=== PATIENT | female | born 1965 | race Caucasian/White ===

== ENCOUNTER 2020-07-07 15:28 | Emergency (ER) | payer OTHER, SELFPAY ==
--- NOTE | ~2020-07-07 | XR_ITS ---
EXAMINATION: XR chest 2V EXAM DATE: 07/07/2020 16:22 INDICATION: Left-sided chest pain radiating to left shoulder, symptoms 4 days. TECHNIQUE: Frontal and lateral projections of the chest obtained and reviewed. There is no prior tiffany dy for comparison. FINDINGS: Lungs are moderately hyperinflated. The lungs are clear. There are no pleural effusions. The cardiomediastinal silhouette is within normal limits. There is no pneumothorax suspected. The b ones and soft tissues are unremarkable. IMPRESSION: 1. No acute cardiopulmonary findings. 2. Hyperinflation. Reviewed, dictated and finalized at location A.
[2020-07-07 15:30] VITALS: BP 146/93; PULSE 81; RESP 16; TEMP 36.1; O2SAT 98
--- NOTE | 2020-07-07 15:33 | ECG_ITS ---
Measurements Intervals [place] Rate: 71 P: 74 AR: 153 QRS: 62 QRSD: 81 T: 66 QT: 364 QTc: 395 Interpretive Statements SINUS RHYTHM NORMAL ECG Electronically Signed On 07-08-2020 6:41:08 CDT by Guerrero Dixon D.O.
[2020-07-07 16:01] VITALS: BP 146/93; PULSE 81; RESP 16; TEMP 36.1; O2SAT 98
[2020-07-07 16:16] LABS: Basophils Percent Auto 0.2 % (0.2-1.2); Eosinophils Absolute Auto 0.1 K/mm3 (0-0.3); Eosinophils Percent Auto 2.4 % (0-4.4); Hematocrit 45.1 % (37.0-47.0); Hemoglobin 14.6 g/dL (12.0-15.0); Immature Granulocyte Absolute 0.01 K/mm3 (0.00-0.031); Immature Granulocyte Percent A 0.2 % (0-0.5); Lymphocytes Percent Auto 29.1 % (18.3-44.2); Mean Corpuscular HGB Conc 32.4 g/dl (32-36); Mean Corpuscular Hemoglobin 30.7 pg (26-34); Mean Corpuscular Volume 94.7 fl (80-100); Mean Platelet Volume 10.5 fl (7.4-10.4); Monocytes Absolute Auto 0.4 K/mm3 (0.1-0.6); Monocytes Percent Auto 7.5 % (2.6-8.5); Neutrophils Absolute Auto 3.3 K/mm3 (1.3-6.7); Neutrophils Percent Auto 60.6 % (45.5-73.1); Platelet Count Result 238 k/mm3 (150-375); Red Blood Count 4.76 M/mm3 (4.2-5.4); Red Cell Distribution Width 12.6 % (11.5-14.5); White Blood Count 5.5 K/mm3 (4.5-10.0)
[2020-07-07 16:26] LABS: Anion Gap 9 mmol/L (8-16); Blood Urea Nitrogen 13 mg/dL (7-17); Calcium 9.9 mg/dL (8.4-10.2); Carbon Dioxide 31 mmol/L (22-30); Chloride 103 mmol/L (98-107); Estimated CRCL calculation 54 ml/min; Estimated Glomerular Filt Rate > 60; Glucose 84 mg/dL (65-105); Sodium 143 mmol/L (137-145)
[2020-07-07 16:27] LABS: INR 0.9; Prothrombin Time 12.9 Seconds (11.1-14.7)
[2020-07-07 16:28] LABS: Partial Thromboplastin Time 22.7 SECONDS (22.3-36.8)
[2020-07-07 16:37] LABS: Troponin I < 0.012 ng/mL (0.000-0.034)
--- NOTE | 2020-07-07 16:58 | ED.GENADULT ---
HPI - General Adult General Chief complaint: Unspecified Stated complaint: shoulder/neck pain Time Seen by Provider: 07/07/20 16:14 Source: patient Mode of arrival: ambulatory Limitations: no limitations Related Data Home Medications Medication Instructions Recorded Confirmed aspirin 81 mg PO DAILY 07/07/20 omeprazole 20 mg PO DAILY 07/07/20 rosuvastatin 20 mg PO DAILY 07/07/20 Allergies Allergy/AdvReac Type Severity Reaction Status Date / Time codeine Allergy Nausea and Verified 07/07/20 15:29 Vomiting PMFSH Social History Social History Gender identity (if verbalized by the patient): Female Course Vital Signs Vital signs: Vital Signs Temperature 36.1 C L 07/07/20 15:30 Pulse Rate 81 07/07/20 15:30 Respiratory Rate 16 07/07/20 15:30 Blood Pressure 146/93 H 07/07/20 15:30 Pulse Oximetry 98 07/07/20 15:30 Temperature 36.1 C L 07/07/20 16:01 Pulse Rate 69 07/07/20 17:48 Respiratory Rate 15 07/07/20 17:48 Blood Pressure 139/50 L 07/07/20 17:48 Pulse Oximetry 100 07/07/20 17:48 Medical Decision Making Vital Signs Vital Signs: Vital Signs Temperature 36.1 C L 07/07/20 15:30 Pulse Rate 81 07/07/20 15:30 Respiratory Rate 16 07/07/20 15:30 Blood Pressure 146/93 H 07/07/20 15:30 Pulse Oximetry 98 07/07/20 15:30 Temperature 36.1 C L 07/07/20 16:01 Pulse Rate 69 07/07/20 17:48 Respiratory Rate 15 07/07/20 17:48 Blood Pressure 139/50 L 07/07/20 17:48 Pulse Oximetry 100 07/07/20 17:48 Lab Data Result diagrams: 07/07/20 16:01 07/07/20 16:01 Labs: Lab Results 07/07/20 07/07/20 07/07/20 Range/Units 16:00 16:01 16:01 WBC 5.5 (4.5-10.0) K/mm3 RBC 4.76 (4.2-5.4) M/mm3 Hgb 14.6 (12.0-15.0) g/dL Hct 45.1 (37.0-47.0) % MCV 94.7 (80-100) fl MCH 30.7 (26-34) pg MCHC 32.4 (32-36) g/dl RDW 12.6 (11.5-14.5) % Plt Count 238 (150-375) k/mm3 MPV 10.5 H (7.4-10.4) fl Immature Gran % (Auto) 0.2 (0-0.5) % Neut % (Auto) 60.6 (45.5-73.1) % Lymph % (Auto) 29.1 (18.3-44.2) % Bonner % (Auto) 7.5 (2.6-8.5) % Eos % (Auto) 2.4 (0-4.4) % Baso % (Auto) 0.2 (0.2-1.2) % Lymph # (Auto) 1.60 (0.9-3.2) K/mm3 Bonner # (Auto) 0.4 (0.1-0.6) K/mm3 Eos # (Auto) 0.1 (0-0.3) K/mm3 Baso # (Auto) 0.0 (0.0-0.1) K/mm3 Abs Immat Gran (auto) 0.01 (0.00-0.031) K/mm3 Absolute Neuts (auto) 3.3 (1.3-6.7) K/mm3 Absolute Nucleated RBC 0.0 (0.0-0.012) K/mm3 Nucleated RBC % 0.0 (0.0-0.2) % PT 12.9 (11.1-14.7) Seconds INR 0.9 APTT 22.7 (22.3-36.8) SECONDS Sodium 143 (137-145) mmol/L Potassium 4.0 (3.4-5.0) mmol/L Chloride 103 (98-107) mmol/L Carbon Dioxide 31 H (22-30) mmol/L Anion Gap 9 (8-16) mmol/L BUN 13 (7-17) mg/dL Creatinine 0.80 (0.7-1.0) mg/dL Estim Creat Clear Calc 54 ml/min Estimated GFR > 60 (59 - ) Glucose 84 (65-105) mg/dL Calcium 9.9 (8.4-10.2) mg/dL Troponin I < 0.012 (0.000-0.034) ng/mL Discharge Plan Discharge Clinical Impression: Cervical radiculopathy Patient Disposition: Home, Self-Care Condition: Stable Instructions: Cervical Radiculopathy (ED) Additional Instructions: See your doctor back home for further evaluation if the symptoms continue or worsen Prescriptions: New methocarbamol 750 mg tablet 750 mg PO QID Qty: 30 RF: 0 naproxen 500 mg tablet 500 mg PO BID Qty: 30 RF: 0 No Action omeprazole 20 mg Capsule,Delayed Release(Dr/Ec) 20 mg PO DAILY RF: 0 aspirin 81 mg Tablet 81 mg PO DAILY RF: 0 rosuvastatin 20 mg Tablet 20 mg PO DAILY RF: 0 Follow-up/Referrals: PHYSICIAN NOT ON STAFF,NONSTAFF [Primary Care Provider] -
[2020-07-07 17:48] VITALS: BP 139/50; PULSE 69; RESP 15; O2SAT 100
--- NOTE | 2020-07-07 18:17 | ED.NECK ---
HPI - Neck Pain/Injury General Chief Complaint: Unspecified Stated Complaint: shoulder/neck pain Time Seen by Provider: 07/07/20 16:14 Source: patient and family Mode of arrival: ambulatory Limitations: no limitations History of Present Illness HPI Narrative: 55-year-old female Complains of pain in the left side of her neck and the left posterior shoulder which has been present for 5 or 6 days She does not recall any injury Pain does seem to shoot into the top part of her arm It is aggravated by turning or flexing her head to the left She saw chiropractor and initially did not think she got any relief but actually today is feeling a little bit better so thinks perhaps it may have helped a little bit, and is also taking OTC medications She does not have any numbness or weakness, no gait issues, no bowel or bladder symptoms Also, no sore throat hoarseness or stridor no chest pain, no shortness of breath Related Data Home Medications Medication Instructions Recorded Confirmed aspirin 81 mg PO DAILY 07/07/20 omeprazole 20 mg PO DAILY 07/07/20 rosuvastatin 20 mg PO DAILY 07/07/20 Allergies Allergy/AdvReac Type Severity Reaction Status Date / Time codeine Allergy Nausea and Verified 07/07/20 15:29 Vomiting Review of Systems Review of Systems: All systems reviewed & are unremarkable except as noted in HPI and below Constitutional: Constitutional: Denies headache(s) and Denies weakness ENT: Denies headache(s) and Denies sore throat Cardiovascular: Cardiovascular: Denies chest pain, Reports radiating jaw, neck or arm pain and Denies dyspnea Respiratory: Respiratory: Denies cough and Denies dyspnea Genitourinary: Genitourinary: Denies urinary frequency Musculoskeletal: Musculoskeletal: Reports back pain, Denies deformity, Denies arthralgias, Denies joint swelling and Denies numbness Integumentary/Breasts: Skin/Breast: Denies rash and Denies wounds Neurologic: Denies headache(s), Denies focal weakness and Denies numbness PMF Social History Social History Gender identity (if verbalized by the patient): Female Exam Const: General: cooperative, healthy appearing, no acute distress and alert Nutritional Appearance: thin Orientation/consciousness: patient oriented x3 (alert) HENMT: Head: normal to inspection, normocephalic and atraumatic Ears: external ears normal General nose exam: no epistaxis Eyes: Conjunctivae: conjunctivae normal EOM: EOMs intact bilaterally Neck: Neck: normal visual inspection, no lymphadenopathy, supple and no JVD Other: Radicular pain is elicited with rotation or flexion to the left There is muscle spasm and tenderness and a trigger point in the posterior trapezius on the left No midline C-spine tenderness Resp: Effort & Inspection: normal respiratory effort and not labored Auscultation: clear to auscultation bilaterally and other (BS =) Cardio: Rate: regular rate Rhythm: regular rhythm Heart sounds: no murmurs Skin: General skin exam: normal color and no rashes or lesions noted Neuro: General: patient oriented x3 (alert) and moves all extremities Speech: normal speech Extrem: General: normal to inspection Psych: Affect: normal affect Course Vital Signs Vital signs: Vital Signs Temperature 36.1 C L 07/07/20 15:30 Pulse Rate 81 07/07/20 15:30 Respiratory Rate 16 07/07/20 15:30 Blood Pressure 146/93 H 07/07/20 15:30 Pulse Oximetry 98 07/07/20 15:30 Temperature 36.1 C L 07/07/20 16:01 Pulse Rate 69 07/07/20 17:48 Respiratory Rate 15 07/07/20 17:48 Blood Pressure 139/50 L 07/07/20 17:48 Pulse Oximetry 100 07/07/20 17:48 MDM - Neck Pain/Injury Lab Data Result diagrams: 07/07/20 16:01 07/07/20 16:01 Labs: Lab Results 07/07/20 07/07/20 07/07/20 Range/Units 16:00 16:01 16:01 WBC 5.5 (4.5-10.0) K/mm3 RBC 4.76 (4.2-5.4) M/mm3 Hgb 14.6 (12.0-15.0) g/dL Hct
== END 2020-07-07 17:51 | disposition home or self-care (01) ==
PROVIDERS: Emergency Medicine; Emergency Provider Emergency Medicine
DX: M54.12 Radiculopathy, cervical region (principal)
CPT/HCPCS: 36415; 71046; 80048; 84484; 85025; 85610; 85730; 93005; 99284

== ENCOUNTER 2022-02-27 14:42 | Outpatient (CLI) | payer OTHER, SELFPAY ==
[2022-02-27 19:53] LABS: Add Urine Microscopic? YES; Appearance Urine Clear (Clear); Bilirubin Urine Negative (Negative); Blood Urine 1+ (Negative); Color Urine Yellow (Yellow); Glucose Urine UA Negative (Negative); Ketones Urine Negative (Negative); Leukocyte Esterase Ur 1+ LEU/UL (Negative); Nitrate Urine Negative (Negative); Protein Urine Negative (Negative); Specific Grav Ur <= 1.005 (1.001-1.035); Urobilinogen Urine 0.2 mg/dL (<2.0); pH Urine 5.5 (5.0-9.0)
[2022-02-27 20:05] LABS: RBC Urine 0-2 /hpf (0-2); WBC Urine 16-20 /hpf
== END 2022-02-27 14:43 | disposition home or self-care (01) ==
LOC: ANHBWCLAB 14:43
PROVIDERS: PCP Family Medicine; Visit Provider Family Medicine
DX: R31.9 Hematuria, unspecified (principal)
CPT/HCPCS: 81001; 87077; 87086; 87186

== ENCOUNTER 2022-03-25 10:28 | Outpatient (CLI) | payer OTHER, SELFPAY ==
--- NOTE | ~2022-03-25 | XR_ITS ---
EXAMINATION: XR finger 2nd RT min 2V DATE: 03/25/2022 10:39 INDICATION: Right hand second digit pain. TECHNIQUE: 4 views of right hand second digit were obtained. COMPARISON: None. FINDINGS: Bone alignment is normal. No fracture. There is mild osteoarthritis of second proximal inte rphalangeal joint. IMPRESSION: 1. 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 Reviewed, dictated and finalized at location A. F BUSINESS DEVELOPMENT OFFICER
== END 2022-03-25 10:29 | disposition home or self-care (01) ==
LOC: ANHBWCIMG 10:29
PROVIDERS: PCP Family Medicine; Visit Provider Family Medicine
DX: M19.041 Primary osteoarthritis, right hand (principal)
CPT/HCPCS: 73140

== ENCOUNTER → 2022-09-27 08:31 | Outpatient (CLI) | payer OTHER, SELFPAY ==
--- NOTE | ~2022-09-27 | MM_ITS ---
EXAMINATION: MM screening daniel BI w ethan HISTORY: Screening mammogram, family history of breast cancer in her mother. TECHNIQUE: Craniocaudal and mediolateral oblique 3-D tomosynthesis images were obtained and synthetic 2-D images were generated. CAD analysis was submitted and interpreted. COMPARISON: No prior mammogram is available for comparison at this institution. BREAST PARENCHYMAL COMPOSITION: The breasts are extremely dense, which lowers the sensitivity of mamm ography. FINDINGS: No suspicious mass, calcification, or architectural distortion are identified in either tesha ast to suggest malignancy. IMPRESSION: 1. No mammographic evidence of malignancy. 2. Recommend routine screening mammography in one year. BI-RADS Category 1: Negative Reviewed, dictated and finalized at location A.
== END ==
PROVIDERS: PCP Family Medicine; Visit Provider Advanced Practice Midwife
DX: Z12.31 Encounter for screening mammogram for malignant neoplasm of breast (principal)
CPT/HCPCS: 77063; 77067

== ENCOUNTER 2022-10-28 10:43 | Outpatient (CLI) | payer OTHER, SELFPAY ==
[2022-10-28 19:01] LABS: Hematocrit 41.4 % (37.0-47.0); Hemoglobin 13.2 g/dL (12.0-15.0); Mean Corpuscular HGB Conc 31.9 g/dl (32-36); Mean Corpuscular Hemoglobin 31.1 pg (26-34); Mean Corpuscular Volume 97.6 fl (80-100); Mean Platelet Volume 11.2 fl (7.4-10.4); Platelet Count Result 233 k/mm3 (150-375); Red Blood Count 4.24 M/mm3 (4.2-5.4); Red Cell Distribution Width 12.4 % (11.5-14.5); White Blood Count 5.1 K/mm3 (4.5-10.0)
[2022-10-28 20:04] LABS: Alanine Aminotransferase 46 U/L (6-35); Albumin Level 4.9 g/dL (3.5-5.1); Alkaline Phosphatase 87 U/L (38-126); Anion Gap 6 mmol/L (8-16); Aspartate Amino Transferase 88 U/L (14-36); Bilirubin,Total 0.6 mg/dL (0.2-1.3); Blood Urea Nitrogen 17 mg/dL (7-17); Calcium 9.6 mg/dL (8.4-10.2); Carbon Dioxide 31 mmol/L (22-30); Chloride 102 mmol/L (98-107); Cholesterol 176 mg/dL (0-200); Estimated Glomerular Filt Rate > 60; Glucose 86 mg/dL (65-110); HDL Direct 79 mg/dL; Potassium 4.2 mmol/L (3.4-5.0); Sodium 139 mmol/L (137-145); Triglycerides 99 mg/dL (<150)
[2022-10-28 20:15] LABS: LDL Cholesterol Direct 67 mg/dL
[2022-10-28 21:33] LABS: Hemoglobin A1C 5.3 % (<5.7)
== END 2022-10-28 10:44 | disposition home or self-care (01) ==
PROVIDERS: PCP Nurse Practitioner Adult Health; Visit Provider Nurse Practitioner Adult Health
DX: Z13.9 Encounter for screening, unspecified (principal)
CPT/HCPCS: 36415; 80053; 80061; 83036; 84443; 85027

== ENCOUNTER 2022-11-04 10:45 | Outpatient (CLI) | payer OTHER, SELFPAY ==
[2022-11-04 19:55] LABS: Alanine Aminotransferase 33 U/L (6-35); Albumin Level 4.6 g/dL (3.5-5.1); Alkaline Phosphatase 69 U/L (38-126); Aspartate Amino Transferase 56 U/L (14-36); Bilirubin,Total 0.3 mg/dL (0.2-1.3); Creatine Kinase 106 U/L (30-135)
[2022-11-04 20:57] LABS: Hepatitis C Virus Antibody Negative (Negative)
== END 2022-11-04 10:46 | disposition home or self-care (01) ==
LOC: ANHBWCLAB 10:47
PROVIDERS: PCP Nurse Practitioner Adult Health; Visit Provider Nurse Practitioner Adult Health
DX: R74.8 Abnormal levels of other serum enzymes (principal)
CPT/HCPCS: 36415; 80076; 82550; 86803

== ENCOUNTER → 2022-11-14 07:54 | Outpatient (CLI) | payer OTHER, SELFPAY ==
--- NOTE | ~2022-11-14 | US_ITS ---
Abdominal Sonogram: Real-time sonographic imaging of the abdomen was performed. Clinical History: Right upper quadrant pain Findings: The liver appears normal with no evidence of mass lesion or bile duct dilatation. Main por alex vein demonstrates normal direction of flow. The spleen is normal in size without evidence of foca l lesion. The gallbladder is well distended, without definite gallstone. There are probable tiny gal lbladder wall polyps. The common bile duct measures 5 mm. The visualized pancreas, aorta, and IVC ar e unremarkable. The right kidney measures 9.6 cm in length and the left kidney measures 8.9 cm. The re is no hydronephrosis or renal calculus. Impression: Tiny gallbladder wall polyps. Reviewed, dictated and finalized at location M. Impression: Tiny gallbladder wall polyps.
== END ==
PROVIDERS: PCP Family Medicine; Visit Provider Nurse Practitioner Adult Health
DX: R10.11 Right upper quadrant pain (principal)
CPT/HCPCS: 76700

== ENCOUNTER 2022-12-05 07:25 | Outpatient (CLI) | payer OTHER, SELFPAY ==
--- NOTE | ~2022-12-05 | NM_ITS ---
EXAMINATION: NM hepatobiliary wo pharm DATE: 12/05/2022 10:06 INDICATION: Right upper quadrant abdominal pain. COMPARISON: Ultrasound 11/14/2022 TECHNIQUE: 4.9 mCi Tc-99m mebrofenin (Choletec) was administered intravenously. Scintigraphic images of the abdomen were obtained for one hour. Then, the patient drank 8 oz Ensure, and imaging was cont inued for 60 minutes. FINDINGS: There is normal clearance of radiotracer from the blood pool. There is homogeneous tracer u ptake by the liver. Activity progresses to the bowel and gallbladder. Gallbladder ejection fraction (GBEF) was 52%. Note that with this technique, normal GBEF >= 33%. IMPRESSION: 1. Normal hepatobiliary scintigraphy. Reviewed, dictated and finalized at location A.
== END 2022-12-05 07:26 | disposition home or self-care (01) ==
PROVIDERS: PCP Family Medicine; Visit Provider Surgery
DX: R10.811 Right upper quadrant abdominal tenderness (principal)
CPT/HCPCS: 78226; A9537

== ENCOUNTER 2023-02-11 11:35 | Outpatient (CLI) | payer OTHER, SELFPAY ==
[2023-02-11 20:06] LABS: Alanine Aminotransferase 20 U/L (6-35); Albumin Level 4.2 g/dL (3.5-5.1); Alkaline Phosphatase 64 U/L (38-126); Aspartate Amino Transferase 36 U/L (14-36); Bilirubin,Total 0.3 mg/dL (0.2-1.3)
== END 2023-02-11 11:36 | disposition home or self-care (01) ==
PROVIDERS: PCP Family Medicine; Visit Provider Nurse Practitioner Adult Health
DX: R74.8 Abnormal levels of other serum enzymes (principal)
CPT/HCPCS: 36415; 80076

== ENCOUNTER 2023-04-06 13:26 | Outpatient (CLI) | payer OTHER, SELFPAY ==
[2023-04-06 19:03] LABS: Hematocrit 39.3 % (37.0-47.0); Hemoglobin 12.4 g/dL (12.0-15.0); Mean Corpuscular HGB Conc 31.6 g/dl (32-36); Mean Corpuscular Hemoglobin 31.1 pg (26-34); Mean Corpuscular Volume 98.5 fl (80-100); Mean Platelet Volume 11.8 fl (7.4-10.4); Platelet Count Result 255 k/mm3 (150-375); Red Blood Count 3.99 M/mm3 (4.2-5.4); Red Cell Distribution Width 12.7 % (11.5-14.5); White Blood Count 6.4 K/mm3 (4.5-10.0)
== END 2023-04-06 13:27 | disposition home or self-care (01) ==
LOC: ANHBWCLAB 13:27
PROVIDERS: PCP Nurse Practitioner Adult Health; Visit Provider Nurse Practitioner Adult Health
DX: R53.83 Other fatigue (principal)
CPT/HCPCS: 36415; 85027

== ENCOUNTER 2023-04-16 12:00 | Outpatient (CLI) | payer OTHER, SELFPAY ==
--- NOTE | ~2023-04-16 | XR_ITS ---
Clinical Indication: Cough PA and lateral views of the chest: Comparison: 07/07/2020 Findings: The lungs are clear, without evidence of focal consolidation or pleural effusion. Cardiome diastinal silhouette is within normal limits. Bones and soft tissues are unremarkable. Impression: Normal chest. Reviewed, dictated and finalized at [facility]. OGRAPH PRINTER Impression: Normal chest.
== END 2023-04-16 12:01 | disposition home or self-care (01) ==
LOC: ANHBWCIMG 12:01
PROVIDERS: PCP Nurse Practitioner Adult Health; Visit Provider Nurse Practitioner Adult Health
DX: R05.9 Cough, unspecified (principal)
CPT/HCPCS: 71046

== ENCOUNTER 2023-05-13 08:30 | Outpatient (CLI) | payer OTHER, SELFPAY ==
[2023-05-13 19:10] LABS: Hematocrit 41.6 % (37.0-47.0); Hemoglobin 12.8 g/dL (12.0-15.0); Mean Corpuscular HGB Conc 30.8 g/dl (32-36); Mean Corpuscular Hemoglobin 30.7 pg (26-34); Mean Corpuscular Volume 99.8 fl (80-100); Mean Platelet Volume 11.2 fl (7.4-10.4); Platelet Count Result 257 k/mm3 (150-375); Red Blood Count 4.17 M/mm3 (4.2-5.4); Red Cell Distribution Width 13.2 % (11.5-14.5); White Blood Count 6.5 K/mm3 (4.5-10.0)
[2023-05-13 19:47] LABS: Alanine Aminotransferase 23 U/L (6-35); Albumin Level 4.3 g/dL (3.5-5.1); Alkaline Phosphatase 68 U/L (38-126); Anion Gap 2 mmol/L (8-16); Aspartate Amino Transferase 40 U/L (14-36); Bilirubin,Total 0.3 mg/dL (0.2-1.3); Blood Urea Nitrogen 20 mg/dL (7-17); Calcium 9.9 mg/dL (8.4-10.2); Carbon Dioxide 31 mmol/L (22-30); Chloride 102 mmol/L (98-107); Cholesterol 164 mg/dL (0-200); Estimated Glomerular Filt Rate > 60; Glucose 63 mg/dL (65-110); HDL Direct 71 mg/dL; Potassium 4.9 mmol/L (3.4-5.0); Sodium 135 mmol/L (137-145); Triglycerides 96 mg/dL (<150)
[2023-05-13 19:58] LABS: LDL Cholesterol Direct 78 mg/dL
[2023-05-15 14:31] LABS: Folic Acid 8.5 ng/mL (2.76->20)
== END 2023-05-13 08:31 | disposition home or self-care (01) ==
PROVIDERS: PCP Nurse Practitioner Adult Health; Visit Provider Nurse Practitioner Adult Health
DX: Z13.9 Encounter for screening, unspecified (principal)
CPT/HCPCS: 36415; 80053; 80061; 82607; 82746; 84443; 85027

== ENCOUNTER 2023-07-22 13:15 | Outpatient (RCR) | payer OTHER, SELFPAY ==
--- NOTE | 2023-05-26 15:45 | OPREHPOC ---
Outpatient Therapy Plan of Care This is a Multidisciplinary Plan of Care that may contain components documented by all disciplines (PT, OT, and ST.) PT Problem 1 PT Problem #1 Knowledge Deficit PT Goal 1 Goal 1. Patient will perform independent HEP Target Visit 2 PT Problem 2 PT Problem #2 Impaired Strength PT Goal 1 Goal 1. Improve pelvic floor strength to 4/5 to decrease incontinence 2. Improve pelvic floor endurance to 10 seconds to decrease incontinence Target Visit 5 PT Problem 3 PT Problem #3 Impaired Functional ADLs PT Goal 1 Goal 1. Pt will report no more than 1 instance of incontinence per week 2. Pt will void no more than 8 times a day and 1 at night 3. Pt will be able to go 5 days out of 7 without wearing a pad or liner Target Visit 5
--- NOTE | 2023-05-26 15:45 | PTOPEVAL1 ---
Assessment and note entered by Allyson Goldberg DPT Evaluation Information Assessment Status Evaluation Subjective Information Pt reports a lot of worsening trouble holding her bladder over the last 12 months and is now wearing a pantiliner. Incontinence with walking her dog, coughing, sneezing. Voids more than 10 times a day and 3 times at night. Incontinence daily, 4-5 on average. Small volume when it does leak. Can hold urge 30-45 minutes. Denies pain with urination. BM daily, no pain. Pelvic pain at times which she attributes to dryness from menopause and is now taking a medicine for that. Highest pain 5/10 and lowest 0/10. Pt has been 2 times, 2 vaginal deliveries and had tearing with 1. 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 Has had to change her clothes at times due to leakage. Patient goal: not have to wear a pad, decrease incontinence Return to MD is not schedule. Reported Pain Level Pain Score 0: Self Report Assessment PT Clinical Summary The patient is presenting to skilled therapy with worsening stress incontinence over the last year. She presents with decreased pelvic floor strength and endurance as well as decreased hip and core strength which are contributing to her daily incontinence and pad use. She will highly benefit from therapy to address these impairments in order to reduce incontinence and improve function. Plan of Care Interventions Manual Therapy,Neuro Re-education,Patient/ Caregiver Education,Therapeutic Activities, Therapeutic Exercise PT Services Indicated Yes Treatment Frequency and 1 time a week for 5 visits Duration These treatments will address the objective and functional deficits as defined above. The patient will be advanced safely and appropriately in order for the patient to progress towards his/her prior level of function. Additional exercises will be introduced and as well as a comprehensive home exercise program upon discharge, if needed, ?to ensure carryover of functional gains achieved in the clinic. This treatment plan has been reviewed and agreement upon by the patient.
--- NOTE | 2023-06-24 09:30 | OPREHPOC ---
Outpatient Therapy Plan of Care This is a Multidisciplinary Plan of Care that may contain components documented by all disciplines (PT, OT, and ST.) PT Problem 1 PT Problem #1 Knowledge Deficit PT Goal 1 Goal 1. Patient will perform independent HEP Target Visit 2 Progress Met PT Problem 2 PT Problem #2 Impaired Strength PT Goal 1 Goal 1. Improve pelvic floor strength to 4/5 to decrease incontinence 2. Improve pelvic floor endurance to 10 seconds to decrease incontinence Target Visit 7 Progress Partially Met Comment 1. met 2. improved to 8 PT Problem 3 PT Problem #3 Impaired Functional ADLs PT Goal 1 Goal 1. Pt will report no more than 1 instance of incontinence per week 2. Pt will void no more than 8 times a day and 1 at night 3. Pt will be able to go 5 days out of 7 without wearing a pad or liner Target Visit 7 Progress Partially Met
--- NOTE | 2023-06-24 09:31 | PTOPPROG ---
Assessment and note entered by Allyson Goldberg DPT Evaluation Information Assessment Status Progress Subjective Information Pt feels better since starting therapy and feels stronger. Urinary incontinence 3 times a day on average, worse in morning after drinking more liquids and occurs with coughing/sneezing/lifting. Voids 8 times a day and 1-3 times a night. States she takes a medicine at night where she has to drink a lot of water and it makes her get up more often. Assessment PT Clinical Summary The patient has made good progress in therapy and reports decreased urinary frequency and incontinence. She demonstrates improved pelvic floor strength and endurance as well as improved core and hip strength. Due to her progress but continued daily incontinence, patient will benefit from further therapy to address strength and incontinence in order to restore full function. Plan of Care Interventions Manual Therapy,Neuro Re-education,Patient/ Caregiver Education,Therapeutic Activities, Therapeutic Exercise PT Services Indicated Yes Treatment Frequency and 1 visit every other week x 2 visits Duration These treatments will address the objective and functional deficits as defined above. The patient will be advanced safely and appropriately in order for the patient to progress towards his/her prior level of function. Additional exercises will be introduced and as well as a comprehensive home exercise program upon discharge, if needed, ?to ensure carryover of functional gains achieved in the clinic. This treatment plan has been reviewed and agreement upon by the patient.
--- NOTE | 2023-07-22 13:42 | OPREHPOC ---
Outpatient Therapy Plan of Care This is a Multidisciplinary Plan of Care that may contain components documented by all disciplines (PT, OT, and ST.) PT Problem 1 PT Problem #1 Knowledge Deficit PT Goal 1 Goal 1. Patient will perform independent HEP Target Visit 2 Progress Met PT Problem 2 PT Problem #2 Impaired Strength PT Goal 1 Goal 1. Improve pelvic floor strength to 4/5 to decrease incontinence 2. Improve pelvic floor endurance to 10 seconds to decrease incontinence Target Visit 7 Progress Met PT Problem 3 PT Problem #3 Impaired Functional ADLs PT Goal 1 Goal 1. Pt will report no more than 1 instance of incontinence per week 2. Pt will void no more than 8 times a day and 1 at night 3. Pt will be able to go 5 days out of 7 without wearing a pad or liner Target Visit 7 Progress Partially Met
--- NOTE | 2023-07-22 13:42 | PTOPDC ---
Assessment and note entered by Allyson Goldberg DPT Evaluation Information Assessment Status Discharge Subjective Information Incontinence occurring 3 times a day, usually small volume unless she is lifting something heavy . Urinating 8 times a day and up to 3 times at night. Reported Pain Level Pain Score 0: Self Report Assessment PT Clinical Summary The patient has continued to make progress in therapy and demonstrates improved pelvic floor endurance. She continues to have daily incontinence but reports overall improvements since initial visit and feels confident in continuing HEP independently at this time. She has been educated in multiple modifications and progressions of her HEP and to follow up with MD and/or PT as needed. Plan of Care PT Services Indicated No
== END 2023-07-22 14:55 | disposition home or self-care (01) ==
LOC: ANHGOSHPT 13:15
PROVIDERS: PCP Nurse Practitioner Adult Health; Visit Provider Nurse Practitioner Adult Health
DX: R32 Unspecified urinary incontinence (principal)
CPT/HCPCS: 97112; 97161; 97530

== ENCOUNTER 2023-07-27 11:35 | Outpatient (CLI) | payer OTHER, SELFPAY ==
--- NOTE | ~2023-07-27 | XR_ITS ---
Clinical Indication: Cough PA and lateral views of the chest: Comparison: 04/16/2023 Findings: The lungs are clear, without evidence of focal consolidation or pleural effusion. Cardiome diastinal silhouette is within normal limits. Bones and soft tissues are unremarkable. Impression: Normal chest. Reviewed, dictated and finalized at location . Impression: Normal chest.
== END 2023-07-27 11:36 | disposition home or self-care (01) ==
LOC: ANHBWCIMG 11:36
PROVIDERS: PCP Nurse Practitioner Adult Health; Visit Provider Nurse Practitioner Adult Health
DX: R05.3 Chronic cough (principal)
CPT/HCPCS: 71046

== ENCOUNTER 2023-07-30 10:04 | Outpatient (CLI) | payer OTHER, SELFPAY ==
--- NOTE | ~2023-07-30 | CT_ITS ---
CT Scan of the Chest without Contrast: Clinical Indication: Chronic cough Technique: Contiguous sections were acquired throughout the chest without intravenous contrast. Dose reduction technique was used on this scan by utilizing automated exposure control and iterative recon struction technique. The dose-length product (DLP) was 138.40 mGy-cm. Findings: There is no evidence of any significant mediastinal, hilar or axillary lymphadenopathy. The mediastin al soft tissues appear normal. There is no evidence of pleural or pericardial effusion. The lungs are clear. No pulmonary nodules or infiltrates are noted. Images through the upper abdomen reveal no abnormalities. Impression: No significant abnormalities seen. Reviewed, dictated and finalized at location . Impression: No significant abnormalities seen.
== END 2023-07-30 10:05 | disposition home or self-care (01) ==
PROVIDERS: PCP Nurse Practitioner Adult Health; Visit Provider Nurse Practitioner Adult Health
DX: R05.3 Chronic cough (principal)
CPT/HCPCS: 71250

== ENCOUNTER 2023-08-26 06:50 | Day surgery (SDC) | payer OTHER, SELFPAY ==
[2023-07-29 10:53] VITALS: BMI 20.1
[2023-08-26 08:15] VITALS: BP 125/82; PULSE 66; RESP 17; TEMP 36.6; O2SAT 100
[2023-08-26] MEDS: LACTATED RINGERS 1,000 ML 150 ML IV CONT (08:20)
--- NOTE | 2023-08-26 08:23 | WPDANESEPPF ---
Anes - Initial Pre Proc Eval Procedure: Operation Date: 08/26/23 09:30 Proposed Procedures p Esophagogastroduodenoscopy - Geovanny Calderón MD Date/Time: 08/26/23 08:23 Surgeon: Geovanny Calderón MD Pre Op Diagnosis: History of other Diseases of the Digestive System Patient Data Age: 58 Gender: F Height: 1.63 m Weight: 52.5 kg Last Vital Signs Temp 36.6 C 08/26/23 08:15 Pulse 66 08/26/23 08:15 Resp 17 08/26/23 08:15 BP 125/82 08/26/23 08:15 Pulse Ox 100 08/26/23 08:15 O2 Del Method Room Air 08/26/23 08:15 Allergies Allergy/AdvReac Type Severity Reaction Status Date / Time codeine Allergy Nausea and Verified 08/26/23 08:11 Vomiting Home Medications Medication Instructions Recorded Confirmed Type naproxen 500 mg tablet 500 mg PO BID #30 tabs 07/07/20 08/26/23 Rx ascorbic acid (vitamin C) 250 mg 250 mg PO DAILY 11/21/22 08/26/23 History tablet cholecalciferol (vitamin D3) 10 10 mcg PO DAILY 11/21/22 08/26/23 History mcg (400 unit) capsule zinc gluconate 50 mg tablet 50 mg PO DAILY 11/21/22 08/26/23 History omeprazole 20 mg capsule,delayed 20 mg PO DAILY #90 caps 04/28/23 08/26/23 Rx release rosuvastatin 20 mg tablet 20 mg PO DAILY #90 tabs 04/28/23 08/26/23 Rx tamoxifen 20 mg tablet 20 mg PO DAILY 05/13/23 08/26/23 History montelukast 10 mg tablet 10 mg PO QHS #90 tabs 06/04/23 08/26/23 Rx (Singulair) vitamin B complex 1 tablet PO DAILY 08/17/23 08/26/23 History Patient hx anesthesia problems: none Family hx anesthesia problems: none Results Review: All pre-operative results and documents have been reviewed as part of the pre-operative evaluation. [facility] Past Medical History Medical History Arthritis GERD (gastroesophageal reflux disease) IBS (irritable bowel syndrome) Family History Family History Father Hypertension Heart disease Mother Cancer Grandparent Cancer Cerebrovascular accident Social History Social History Smoking status: Never smoker Alcohol intake: current Alcohol use details: Daily Wine Substance use: never Substance use type: does not use Lack of Transportation: No Lack of Food: Never True Current Housing: I Have Housing Concerned About Future Housing: No Difficulty Paying Gas/Electric Bills: No Difficulty Paying for Meds: No Currently Unemployed: No Education: Trade/Vocational Certificate Difficulty w/ Childcare or Family Care: No Living arrangements: with family Gender identity (if verbalized by the patient): Female Sexual Orientation (if Verbalized by the Patient): Straight or Heterosexual Agree to blood products: Yes Anes - Eval Final PreProcedure Day of Procedure 08/26/23 08:23 Patient weight: normal Heart: regular rate and rhythm Lungs: clear to auscultation Airway: Mallampati scale class 1 Neurological: alert and oriented Last oral intake: >/= 8 hours ASA classification: II Emergent: no Anesthetic plan: proceed Anesthesia type and monitoring: general GIVS and standard monitoring Results Review: All pre-operative results and documents have been reviewed as part of the pre-operative evaluation. Informed Consent: The patient's anesthetic plan and its attendant risks and benefits were discussed with the patient/family/POA. Questions were solicited and answers provided to the satisfaction of the patient/family/POA.
--- NOTE | 2023-08-26 08:45 | PM.HPGS ---
History of Present Illness History of Present Illness Consent: Risks, benefits, and alternatives have been discussed and questions answered. Patient agrees to proceed with procedure. Chief complaint: History of other Diseases of the Digestive System Narrative: Jenna Jenkins is a 58 year old female presents for EGD. Patient complains of large pills catching her throat. She also reports an ongoing cough. In the past was told that she had acid reflux. She gives a history of esophageal web that was dilated in the past. Patient currently maintained on is all 20mg p.o. daily. Patient denies any weight loss or bleeding. She has today for EGD to assess dysphagia. Review of Systems Review of Systems: All systems reviewed & are unremarkable except as noted in HPI and below PMFSH Past Medical History Medical History Arthritis GERD (gastroesophageal reflux disease) IBS (irritable bowel syndrome) Family History Family History Father Hypertension Heart disease Mother Cancer Grandparent Cancer Cerebrovascular accident Social History Social History Smoking status: Never smoker Alcohol intake: current Alcohol use details: Daily Wine Substance use: never Substance use type: does not use Lack of Transportation: No Lack of Food: Never True Current Housing: I Have Housing Concerned About Future Housing: No Difficulty Paying Gas/Electric Bills: No Difficulty Paying for Meds: No Currently Unemployed: No Education: Trade/Vocational Certificate Difficulty w/ Childcare or Family Care: No Living arrangements: with family Gender identity (if verbalized by the patient): Female Sexual Orientation (if Verbalized by the Patient): Straight or Heterosexual Agree to blood products: Yes Meds Home Medications and Allergies Home Medications Medication Instructions Recorded Confirmed Type naproxen 500 mg tablet 500 mg PO BID #30 tabs 07/07/20 08/26/23 Rx ascorbic acid (vitamin C) 250 mg 250 mg PO DAILY 11/21/22 08/26/23 History tablet cholecalciferol (vitamin D3) 10 10 mcg PO DAILY 11/21/22 08/26/23 History mcg (400 unit) capsule zinc gluconate 50 mg tablet 50 mg PO DAILY 11/21/22 08/26/23 History omeprazole 20 mg capsule,delayed 20 mg PO DAILY #90 caps 04/28/23 08/26/23 Rx release rosuvastatin 20 mg tablet 20 mg PO DAILY #90 tabs 04/28/23 08/26/23 Rx tamoxifen 20 mg tablet 20 mg PO DAILY 05/13/23 08/26/23 History montelukast 10 mg tablet 10 mg PO QHS #90 tabs 06/04/23 08/26/23 Rx (Singulair) vitamin B complex 1 tablet PO DAILY 08/17/23 08/26/23 History Allergies Allergy/AdvReac Type Severity Reaction Status Date / Time codeine Allergy Nausea and Verified 08/26/23 08:11 Vomiting Vital Signs Vital Signs - 24 hr 08/26/23 08:15 Temperature 97.9 F Pulse Rate 66 Respiratory Rate 17 Blood Pressure 125/82 Pulse Oximetry 100 Oxygen Delivery Room Air Exam Narrative: Physical exam reveals patient to be alert. Signs stable. HEENT exam is unremarkable. Patient is anicteric. Lungs are clear to auscultation and to percussion. heart is without murmur or extra sounds. Abdomen bowel sounds are present soft nontender with no organomegaly. Assessment and Plan Assessment and plan (1) Dysphagia: Code(s): R13.10 - Dysphagia, unspecified Status: Acute Assessment and Plan: Patient has difficulty swallowing large pills. She gives a history of GE reflux and distal esophageal web in the past. Plan for follow-up EGD at this time. Continued use of omeprazole already prescribed is advised. (2) Cough: Code(s): R05.9 - Cough, unspecified Status: Acute Assessment and Plan: Patient with chronic coughing. She complains of chest congestion. States that previous x-rays hav
[2023-08-26 09:43] VITALS: BP 117/65; PULSE 59; RESP 14; O2SAT 100
[2023-08-26 09:53] VITALS: BP 113/73; PULSE 54; RESP 16; O2SAT 100
[2023-08-26 10:02] VITALS: BP 115/64; PULSE 61; RESP 16; O2SAT 99
--- NOTE | 2023-08-26 10:09 | WPDANESPN ---
Anes - Prog Note Post-Op Date/Time: 08/26/23 10:09 Cardiovascular status: normal Respiratory status: normal Airway patency: baseline Mental status: baseline Post-Op hydration status: normal Vital Signs: Last Vital Signs Temp 36.6 C 08/26/23 08:15 Pulse 61 08/26/23 10:02 Resp 16 08/26/23 10:02 BP 115/64 08/26/23 10:02 Pulse Ox 99 08/26/23 10:02 O2 Del Method Room Air 08/26/23 10:02 Pain Score (VAS): 0/10 I/O: Intake & Output 08/25/23 08/26/23 08/26/23 23:59 07:59 15:59 Intake Total 450 Balance 450 Patient Feedback: Patient satisfied with anesthetic care.
== END 2023-08-26 10:21 | disposition home or self-care (01) ==
PROVIDERS: PCP Family Medicine; Visit Provider Internal Medicine Gastroenterology
PROC: 0DJ08ZZ Inspection of Upper Intestinal Tract, Via Natural or Artificial Opening Endoscopic (ICD-10-PCS; CPT 43235; principal; 2023-08-26 09:30)
DX: R13.19 Other dysphagia (principal)
CPT/HCPCS: 43450

== ENCOUNTER 2023-11-02 10:18 | Outpatient (CLI) | payer OTHER, SELFPAY ==
[2023-11-02 18:52] LABS: Hematocrit 40.7 % (37.0-47.0); Hemoglobin 12.9 g/dL (12.0-15.0); Mean Corpuscular HGB Conc 31.7 g/dl (32-36); Mean Corpuscular Hemoglobin 30.8 pg (26-34); Mean Corpuscular Volume 97.1 fl (80-100); Mean Platelet Volume 10.9 fl (7.4-10.4); Platelet Count Result 260 k/mm3 (150-375); Red Blood Count 4.19 M/mm3 (4.2-5.4); Red Cell Distribution Width 12.8 % (11.5-14.5); White Blood Count 6.5 K/mm3 (4.5-10.0)
[2023-11-02 19:44] LABS: Alanine Aminotransferase 21 U/L (6-35); Albumin Level 4.4 g/dL (3.5-5.1); Alkaline Phosphatase 51 U/L (38-126); Anion Gap 10 mmol/L (4-12); Aspartate Amino Transferase 66 U/L (14-36); Bilirubin,Total 0.3 mg/dL (0.2-1.3); Blood Urea Nitrogen 17 mg/dL (7-17); Carbon Dioxide 28 mmol/L (22-30); Chloride 98 mmol/L (98-107); Cholesterol 141 mg/dL (0-200); Estimated Glomerular Filt Rate > 60; Glucose 86 mg/dL (65-110); HDL Direct 61 mg/dL; Potassium 4.2 mmol/L (3.4-5.0); Sodium 136 mmol/L (137-145); Triglycerides 86 mg/dL (<150)
[2023-11-02 19:54] LABS: LDL Cholesterol Direct 52 mg/dL
[2023-11-02 20:01] LABS: Hemoglobin A1C 5.8 % (<5.7)
[2023-11-02 20:31] LABS: Vitamin D 25 Hydroxy 43.6 ng/mL
== END 2023-11-02 10:19 | disposition home or self-care (01) ==
PROVIDERS: PCP Nurse Practitioner Adult Health; Visit Provider Nurse Practitioner Adult Health
DX: Z13.9 Encounter for screening, unspecified (principal); E55.9 Vitamin D deficiency, unspecified
CPT/HCPCS: 36415; 80053; 80061; 82306; 82607; 83036; 84443; 85027

== ENCOUNTER 2023-11-12 07:09 | Outpatient (CLI) | payer OTHER, SELFPAY ==
--- NOTE | ~2023-11-12 | DEXA_ITS ---
Bone Density Report Name: GAVI PLAZA Age: 58 Sex: Female Ethnicity: White Date of : 1965 Indication: postmenopausal; screening for osteoporosis; parental hip fracture; Referring Provider: FRANK GARCIA Study: Bone densitometry was performed. Exam Date: November 12, 2023 Accession number: [id number] Bone Density: Region BMD T-score Z-score Classification AP Spine(L1-L4) 0.895 -1.4 0.0 Osteopenia Femoral Neck (Left) 0.509 -3.1 -1.8 Osteoporosis Total Hip (Left) 0.671 -2.2 -1.3 Osteopenia Femoral Neck (Right) 0.569 -2.5 -1.3 Osteoporosis Total Hip (Right) 0.732 -1.7 -0.8 Osteopenia Femoral Neck Mean 0.539 -2.8 -1.5 Osteoporosis Total Hip Mean 0.701 -2.0 -1.0 Osteopenia World Health Organization criteria for BMD impression classify patients as: Normal (T-score at or above -1.0), Osteopenia (T-score between -1.0 and -2.5), or Osteoporosis (T-score at or below -2.5). 10-year Fracture Risk: FRAX not reported because: Some T-score for Spine Total or Hip Total or Femoral Neck at or below -2.5 Clinical Information Provided by Patient: Parent has had a hip fracture Has used the following medications: HRT (i.e. estrogen/hormone therapy), Vitamin D Patient maximum height was 64 Menopause Age: 47 No regular weight bearing exercise Drinks caffeinated beverages Onset of menses at age 10 Number of children 2 Impression: The patient has osteoporosis, based on the Left Femoral Neck T-score. The patient has risk factors, including: parental hip fracture. Discussion: INCREASED RISK OF FRACTURE. BONE DENSITY IS UNDESIRABLY LOW AT ONE OR MORE SKELETAL SITES, CONSISTENT WITH POSTMENOPAUSAL OSTEOPOROSIS. This patient's lowest T-score meets the World Health Organization's (WHO) criteria for osteoporosis at one or more sites (T-score -2.5 or below). In untreated patients, the risk of osteoporotic fracture increases approximately two-fold for each 1.0 SD decrease in T-score. Low bone density is not the only risk factor for fracture; also consider factors such as patient's age, frailty or poor health, risk of falling, risk of injury, previous osteoporotic fracture, family history of osteoporosis, cigarette smoking, low body weight, etc. Not everyone with low bone mineral density has osteoporosis; osteomalacia and other metabolic bone disorders should also be considered. Patients who have osteoporosis should be evaluated for specific diseases and conditions (secondary causes) that may cause or contribute to bone loss. The [place] [employer]ocrin[employer] (AACE) and National Osteoporosis Foundation (NOF) recommend pharmacologic intervention for all postmenopausal women whose T-score is in this range. The patient should follow a healthful lifestyle (good nutrition with seble
== END 2023-11-12 07:10 | disposition home or self-care (01) ==
LOC: CHSIMG 07:11
PROVIDERS: PCP Nurse Practitioner Adult Health; Visit Provider Nurse Practitioner Adult Health
DX: Z78.0 Asymptomatic menopausal state (principal); M85.89 Other specified disorders of bone density and structure, multiple sites; M81.0 Age-related osteoporosis without current pathological fracture
CPT/HCPCS: 77080

== ENCOUNTER 2023-12-30 08:13 | Outpatient (CLI) | payer OTHER, SELFPAY ==
--- NOTE | ~2023-12-30 | US_ITS ---
Limited Abdominal Sonogram: Real-time sonographic imaging of the right upper quadrant was performed. Clinical History: Gallbladder polyps COMPARISON: 11/14/2022 Findings: The liver appears normal with no evidence of bile duct dilatation. There is an echogenic, somewhat masslike area in the liver measuring 2.3 x 1.7 x 2.5 cm. Main portal vein demonstrates ulises l direction of flow. The gallbladder is well distended, and appears demonstrates small polyps measure up to 3 mm. The common bile duct measures 5 mm. The visualized pancreas, aorta, and IVC are unremar kable. Impression: Tiny gallbladder wall polyps up to 3 mm. Echogenic area in the liver measuring 2.3 x 1 7 x 2.5 cm. This could reflect an area of focal fatty i nfiltration versus possibly mass, which would most likely hemangioma. Consider pre and postcontrast M R to further evaluate. Reviewed, dictated and finalized at location M. RAFT ENGINE TECHNICIAN Impression: Tiny gallbladder wall polyps up to 3 mm. Echogenic area in the liver measuring 2.3 x 1 7 x 2.5 cm. This could reflect an area of focal fatty infiltration versus possibly mass, which would most likely hemangioma. Consider pre and postcontrast MR to further evaluate.
== END 2023-12-30 08:14 | disposition home or self-care (01) ==
LOC: GOSHIMG 08:14
PROVIDERS: PCP Nurse Practitioner Adult Health; Visit Provider Surgery
DX: K82.4 Cholesterolosis of gallbladder (principal)
CPT/HCPCS: 76705

== ENCOUNTER 2024-01-05 09:52 | Outpatient (CLI) | payer OTHER, SELFPAY ==
--- NOTE | ~2024-01-05 | MR_ITS ---
EXAMINATION: MR abdomen wo/w con DATE: 01/05/2024 10:42 INDICATION: Abdominal pain with indeterminate hepatic lesion identified on recent gallbladder ultraso und. TECHNIQUE: Magnetic resonance imaging (MRI) of the abdomen was performed without and with 10 mL Multi waldemar intravenous contrast. Sequences included coronal T2-weighted SS-FSE, coronal and axial FS 2D-F IESTA, axial STIR FSE, axial T2-weighted SS-FSE, axial T2-weighted FS SS-FSE, axial diffusion-weighte d SE, axial dual-echo T1-weighted FSPGR, and axial and coronal T1-weighted LAVA. Postcontrast axial T 1-weighted LAVA images were obtained in a time course. Postcontrast coronal T1-weighted LAVA images w ere obtained. COMPARISON: Ultrasound dated 12/30/2023 FINDINGS: Arch size is normal. No pericardial or pleural effusion. There is a very subtle region of focal hepat ic steatosis along the gallbladder fossa with minimal increased signal in the in phase and minimally decreased signal on the post phase images which corresponds in and approximate size and location to t he region of subtly increased echogenicity on prior ultrasound. No other hepatic lesions identified. Gallbladder, spleen, pancreas, bilateral adrenal glands and right kidney are normal. 5 mm T2 hyperint ense nonenhancing cyst at the upper pole of the left kidney. Visualized bowels are unremarkable. No p athologically enlarged abdominal or upper pelvic lymphadenopathy. Normal bone marrow signal throughou t. IMPRESSION: 1. Small region of subtle focal hepatic steatosis along the gallbladder fossa which corresponds to th e lesion of concern on prior ultrasound. Reviewed, dictated and finalized at location B. WELL SERVICES SUPERVISOR IMPRESSION: 1. Small region of subtle focal hepatic steatosis along the gallbladder fossa w hich corresponds to the lesion of concern on prior ultrasound.
== END 2024-01-05 09:53 | disposition home or self-care (01) ==
PROVIDERS: PCP Nurse Practitioner Adult Health; Visit Provider Surgery
DX: R16.0 Hepatomegaly, not elsewhere classified (principal)
CPT/HCPCS: 74183; A9577

== ENCOUNTER 2024-03-17 15:14 | Outpatient (CLI) | payer OTHER, SELFPAY ==
[2024-03-17 18:21] LABS: Basophils Percent Auto 0.2 % (0.2-1.2); Eosinophils Absolute Auto 0.1 K/mm3 (0-0.3); Eosinophils Percent Auto 1.7 % (0-4.4); Hematocrit 38.7 % (37.0-47.0); Hemoglobin 12.4 g/dL (12.0-15.0); Immature Granulocyte Absolute 0.01 K/mm3 (0.00-0.031); Immature Granulocyte Percent A 0.2 % (0-0.5); Lymphocytes Absolute Auto 1.41 K/mm3 (0.9-3.2); Lymphocytes Percent Auto 23.8 % (18.3-44.2); Mean Corpuscular Hemoglobin 31.1 pg (26-34); Mean Platelet Volume 11.7 fl (7.4-10.4); Monocytes Absolute Auto 0.5 K/mm3 (0.1-0.6); Monocytes Percent Auto 7.8 % (2.6-8.5); Neutrophils Absolute Auto 3.9 K/mm3 (1.3-6.7); Neutrophils Percent Auto 66.3 % (45.5-73.1); Platelet Count Result 203 k/mm3 (150-375); Red Blood Count 3.99 M/mm3 (4.2-5.4); Red Cell Distribution Width 13.2 % (11.5-14.5); White Blood Count 5.9 K/mm3 (4.5-10.0)
--- OUTSIDE RECORDS SUMMARY | 2024-03-18 05:56 | XMS_ITS | Data Portability ---
Author Organization [facility] [place] Address [address] [place] [address] Care Team Providers Care Pen Maker Name Role Phone ALYSSASEVERIANOIN Primary Care Provider Assessment Encounter Date Assessment Date Assessment LastModified by Organization Details LastModified Time 07/18/2022 07/18/2022 Annual gynecological exam performed. Patient will come back in a year unless there are new symptoms. Suggest Calcium with Vitamin D if not eating in diet. Patient advised to get annual flu shot. Recommend yearly physicals and preform monthly breast exams. Genetic testing is available for patients with family history of cancer. Engage in safe sexual practices, use condoms. Encouraged to have daily exercise. Avoid tobacco and illicit drugs, moderation of alcohol. If BMI greater than 25 dietary consult advised. If you have any questions please call or email. Not available 07/18/2022 13:00:44 09/25/2023 09/25/2023 Annual gynecological exam performed. Patient will come back in a year unless there are new symptoms. Suggested Calcium with Vitamin D 1200-1500mg daily. Patient advised to get an annual flu shot in the fall and she could obtain at [facility] or [facility]. Also to obtain TDap vaccination if you have not had one in the last 10 years. Recommend yearly mammograms. Encouraged monthly self breast exams. Encourage safe sexual practices, to use condoms and limit partners if not already in a monogamous relationship. Engage in daily exercise of low impact aerobic exercise 45-60 minutes 4-5 times weekly. Avoid tobacco and illicit drugs as well as using moderation with alcohol intake less than 1-2 8 oz beverages daily. This lifestyle behavior pattern will lead to less health conditions and longer life span. If BMI greater than 25 weight watchers or dietary consult advised. All questions have been answered. Patient appears to understand information, but if you have any questions please call or respond to this email. pap collected mammogram MRI at [facility] samples of ashley [email or web address] Not available 09/25/2023 11:38:56 Plan of Treatment Reminders Order Date Submit Date Provider Last Modified By Organization Details Last Modified Time Details Appointments [facility] 2024 10:00A M Yuliana Rod CNM Not available Not available Not available Lab None recorded. Referral None recorded. Procedures None recorded. Surgeries None recorded. Imaging None recorded. Medication Orders nystatin- triamcino lone 100,000 unit/gram -0.1 % topical ointment 2022 023 Not available 07/18/2022 12:35:32 Patient TargetsNo targets recorded. Patient InstructionsNo instructions recorded. Reason for Referral None Reported. Results Created Date Observation Date Name Description Value Unit Range Abnormal Flag Note LastModifiedBy Organization Detail LastModifiedTime 07/19/19 23 07/18/2022 IMAGE GUIDE D PAP AND HPV REGAR DLESS image guided Pap, HPV regardless of Pap result SEE RESULT S BELOW CASE REPOR T: Cytol ogy Gynec ologi yusuf Repor t Case: [id number] Autho estuardo barrera Provi april: Yuliana Petty, ALEJANDRA Martines cted: 07/18 1436 Order ing Locat ion: [place] [facility] Recei burak: 07/19 0125 First Scree n: Juanita Montes ay, CT Rescr een: Zoila Hernandez ret, CT Speci men: Scree souleymane Pap - Image d, Cervi x STATE MENT OF ADEQU ACY: UNSAT ISFAC TORY SPECI MEN FINAL DIAGN OSIS: Unsat isfac tory for evalu ation . Inade quate squam ous epith elial compo nent for diagn osis ([facility] le consi sts of predo minan tly endoc ervic al cells ). Lashawn long yo d by Zoila Hernandez ret, CT on 023 at 11:10 AM ----- ----- ----- ----- ----- ----- ----- ----- ----- ----- ----- ----- ----- ----- ----- ----- ----- ---- HPV RESUL TS: HPV mRNA E6/E7 : No HPV mRNA Detec letty NOTE: This high risk HPV mRNA assay detec ts fourt een high- risk HPV types (16, 18, 31, 33, 35, 39, 45, 51, 52, 56, 58, 59, 66, 68) witho ut diffe renti ation . COMME NT: This speci men was revie wed by a Cytot echno logis t and/o r Patho logis t (as indic ated in this repor t) after evalu ation using the Thinp rep Imagi ng Syste m. CLINI YUSUF INFOR MATIO N: Menst rual Statu s: LMP (if appli cable ): Clini yusuf Histo ry/Pr eviou s Pap: Type of Neopl kristin (if appli cable ): Signi fican t Clini yusuf Findi ngs: Other Histo ry: Hormo thi (if appli cable ): Not Available [facility] (Lab) [address] [facility], [place], [address], 07/24/2022 12:14:53 09/25/19 24 09/25/2023 IMAGE GUIDE D PAP AND HPV REGAR DLESS image guided Pap, HPV regardless of Pap result SEE RESULT S BELOW CASE REPOR T: Cytol ogy Gynec ologi yusuf Repor t Case: [id number] Autho estuardo barrera Provi april: Yuliana Petty NP Colle cted: 09/24 1625 Order ing Locat ion: [place] [facility] Recei burak: 09/257 First Scree n: Bess Alfaro een: Erinn ni, Fara ed, CT Speci men: Scree souleymane Pap - Image d, Cervi x STATE MENT OF ADEQU ACY: Satis facto ry for evalu ation Trans forma tion zone compo nent prese nt ----- ----- ----- ----- ----- ----- ----- ----- ----- ----- ----- ----- ----- ----- ----- ----- ----- ---- FINAL DIAGN OSIS: Negat magui for Intra epith elial Lessnehal ingram or Lacy condon (NIL) . Elect ganesh ram d by Fara De Luna ed, CT on 024 at 9:48 PM ----- ----- ----- ----- ----- ----- ----- ----- ----- ----- ----- ----- ----- ----- ----- ----- ----- ---- HPV RESUL TS: HPV mRNA E6/E7 : No HPV mRNA Detec letty NOTE: This high risk HPV mRNA assay detec ts fourt een high- risk HPV types (16, 18, 31, 33, 35, 39, 45, 51, 52, 56, 58, 59, 66, 68) witho ut diffe renti ation . COMME NT: This speci men was revie wed by a Cytot echno logis t and/o r Patho logis t (as indic ated in this repor t) after evalu ation using the Thinp rep Imagi ng Syste m. CLINI YUSUF INFOR MATIO N: Menst rual Statu s: LMP (if appli cable ): 013 Clini yusuf Histo ry/Pr gavinoiou s Pap: Type of Neopl kristin (if appli cable ): Signi irma t Clini yusuf Findi ngs: Other Histo ry: Hormo thi (if appli cable ): PAP EDUCA GWENDOLYN L NOTE: The Pap Test is a scree souleymane test with an inher ent false negat magui rate. Liqui d-bas ed sampl ing may decre ase, but will not elimi yvonne, false negat magui resul ts. A negat magui resul t does not precl ude the prese nce and/o r devel opmen t of disea se, since the prese nce of abnor mal cells in the sampl e depen ds on the locat ion of the lesio n and sampl ing techn ique. Elenita nued regul ar scree souleymane is the best metho d of cance r preve ntion . If repor letty cytol ogic findi ng do not corre late with physi yusuf and/o r histo rical findi ngs, furth er inves tigat ion is recom farhad d, as clini ronnie magalie nted. Not Available [facility] (Lab) [address], [place], [address], 10/01/2023 22:53:21 09/30/19 23 09/27/2022 MAMMO , scree souleymane, bilat eral No observ ation record ed. [email or web address] [facility] [address] [facility], [place], [address], 12/22/2022 14:35:02 Result Notes None recorded. Procedures Surgical History Date Name Laterality Status Provider Name and Address Organization Details Recorded Time 09/25/19 24 Date of Last Pap Smear completed Kaitlynn Jennings [facility] 09/25/2023 17:28:07 09/28/19 23 Date of Last Mammogram completed Kaitlynn Jennings [facility] 09/25/2023 11:11:20 08/07/19 21 completed Kaitlynn Jennings [facility] 06/13/2022 14:38:49 08/07/19 21 Date of Last Colonoscopy completed Kaitlynn Jennings [facility] 06/13/2022 14:38:49 08/07/19 21 Colonoscopy completed Kaitlynn Jennings [facility] 07/10/2022 16:22:54 05/06/19 20 Most Recent Bone Density completed Kaitlynn Jennings [facility] 06/13/2022 14:38:49 02/23/19 02 Breast Biopsy completed Kaitlynn Jennings [facility] 07/10/2022 16:24:04 02/23/19 01 Breast Biopsy completed Kaitlynnchad Jennings [facility] 07/10/2022 16:24:01 02/23/19 00 Breast Biopsy completed Kaitlynnchad Jennings [facility] 07/10/2022 16:23:50 02/23/18 90 extraction of wisdom tooth completed Kaitlynnchad Jennings [facility] 07/10/2022 16:23:31 Imaging Results Imaging Date Name Status LastModified by Organiz ation Details LastModified Time 09/27/2022 MAMMO, screening, bilateral completed [address] [facility] [address] [place] [address], [place], [address], 12/22/2022 14:35:02 Procedure Notes None recorded. Medical Equipment None Reported. Allergies Allergen ID Allergen Name Allergen Category Reaction Reaction Severity Criticality Documentation Date Start Date Code Code System Note Provider Name and Address Organization Details Recorded Time codeine medicatio n Not available Not available Not available 06/13/2022 2670 RxNorm Kaitlynn Jennings [facility], [facility] 14:39:07 Medications Name Sig Start Date Stop Date Status Note LastModified by Organization Details LastModified Time azithromyci n 250 mg tablet TAKE 2 TABLETS BY MOUTH TODAY, THEN TAKE 1 TABLET DAILY FOR 4 DAYS DIRECTED 09/24 completed Not Available Not Available Not Available minocycline 100 mg capsule TAKE ONE CAPSULE BY MOUTH TWICE DAILY. AVOID DAIRY PRODUCTS WITHIN THE HOUR OF TAKING CAPSULE. 09/24 completed Not Available Not Available Not Available phenazopyri dine 200 mg tablet TAKE 1 TABLET BY MOUTH 3 TIMES A DAY NEEDED FOR PAIN 06/13 completed Not Available Not Available Not Available fluorouraci l 5 % topical cream PLEASE SEE ATTACHED FOR DETAILED DIRECTION S 08/02 /2024 completed Not Available Not Available Not Available sulfamethox azole 800 mg-trimetho prim 160 mg tablet TAKE 1 TABLET BY MOUTH EVERY 12 HOURS 06/13 completed Not Available Not Available Not Available nystatin-tr iamcinolone 100,000 unit/gram-0 .1 % topical ointment APPLY TO AFFECTED AREA TWICE A DAY 07/18 completed Not Available Not Available Not Available clindamycin 1 % topical gel APPLY THIN LAYER TO AFFECTED AREA AROUND MOUTH TWICE DAILY 09/24 completed Not Available Not Available Not Available ascorbic acid (vitamin C) 500 mg tablet active Not Available Not Available Not Available tamoxifen 10 mg tablet TAKE 2 TABLETS BY MOUTH EVERY DAY active Not Available Not Available No t Available cephalexin 500 mg capsule TAKE 1 CAPSULE (500 MG) BY MOUTH IN THE MORNING AND AT BEDTIME FOR 5 DAYS. 06/13 completed Not Available Not Available Not Available omeprazole 20 mg capsule,del ayed release TAKE 1 CAPSULE BY MOUTH EVERY DAY active Not Available Not Available No t Available montelukast 10 mg tablet TAKE 1 TABLET BY MOUTH EVERYDAY AT BEDTIME active Not Available Not Available No t Available methylpredn isolone 4 mg tablets in a dose pack TAKE 6 TABLETS ON DAY 1 DIRECTED ON PACKAGE AND DECREASE BY 1 TAB EACH DAY FOR A TOTAL OF 6 DAYS 09/24 completed Not Available Not Available Not Available spironolact one 50 mg tablet PLEASE SEE ATTACHED FOR DETAILED DIRECTION S 09/24 completed Not Available Not Available Not Available azithromyci n 500 mg tablet TAKE ONE TAB 3X PER WEEK ON CONSECUTI VE DAYS, FOR 4 WEEKS 09/24 completed Not Available Not Available Not Available rosuvastati n 20 mg tablet TAKE 1 TABLET BY MOUTH EVERY DAY active Not Available Not Available No t Available nitrofurant oin monohydrate /macrocryst als 100 mg capsule TAKE 1 CAPSULE BY MOUTH EVERY 12 HOURS WITH FOOD FOR 5 DAYS 06/13 completed Not Available Not Available Not Available NightTime Sleep Aid (diphen) active Not Available Not Available Not Available rosuvastati n 06/13 completed Not Available Not Available Not Available B12 active Not Available Not Availa ble Not Available Acid Fire Control System Installer (omeprazole ) 20 mg capsule,del ayed release 07/18 completed Not Available Not Available Not Available Vitals Date Recorded Body height Body mass index (BMI) Body weight Systolic blood pressure Diastolic blood pressure Provider Name and Address Organization Details Last Updated DateTime 06/13/2022 160.02 cm 20 kg/m2 40181.94 g 138 mm[Hg] 88 mm[Hg] Kaitlynn [facility] 3 14:36:41 Date Recorded Body height Body mass index (BMI) Body weight Systolic blood pressure Diastolic blood pressure Provider Name and Address Organization Details Last Updated DateTime 07/18/2022 160.02 cm 19.8 kg/m2 56328.35 g 116 mm[Hg] 68 mm[Hg] [facility] 12:35:12 Date Recorded Body height Body mass index (BMI) Body weight Systolic blood pressure Diastolic blood pressure Provider Name and Address Organization Details Last Updated DateTime 09/25/2023 160.02 cm 20.5 kg/m2 51325.71 g 111 mm[Hg] 73 mm[Hg] [facility] 4 11:09:53 Social History Question Answer Notes LastModified by Organizat ion Details LastModified Time Tobacco Smoking Status Never Smoker Jessekaro Fortunevik [facility] 07/18/2022 12:07:27 What Is Your Level Of Alcohol Consumption? None [email or web address] Information not available 09/25/2023 How Many Years Have You Consumed Alcohol? 10 [email or web address] Information not available 06/13/2022 Are You Blind Or Do You Have Difficulty Seeing? No [email or web address] Information n ot available 06/13/2022 What Is Your Level Of Caffeine Consumption? Moderate [email or web address] Information not available 06/13/2022 How Much Tobacco Do You Chew? None [email or web address] Information not available 06/13/2022 In The 14 Days Before Symptom Onset, Have You Had Close Contact With A Laboratory-confirm ed COVID-19 While That Case Was Ill? No [email or web address] Information n ot available 06/13/2022 In The 14 Days Before Symptom Onset, Have You Had Close Contact With A Person Who Is Under Investigation For COVID-19 While That Person Was Ill? No [email or web address] Information not available 06/13/2022 Have You Been To An Area Known To Be High Risk For COVID-19? No [email or web address] Information not available 06/13/2022 Are You Deaf Or Do You Have Serious Difficulty Hearing? No [email or web address] Information not available 06/13/2022 What Type Of Diet Are You Following? REGULAR [email or web address] Information n ot available 06/13/2022 What Is The Highest Grade Or Level Of School You Have Completed Or The Highest Degree You Have Received? [id number] [email or web address] Information not available 06/13/2022 What Is Your Occupation? Retired [email or web address] Information not available 06/13/2022 Are There Any Guns Present In Your Home? Yes Information not available 06/13/2022 Have You Ever Been Counseled For Unhealthy Alcohol Use? No [email or web address] Information not available 07/18/2022 Do You Use Protection During Sex? No [email or web address] Information not available 06/13/2022 Do You Use Your Seat Belt Or Car Seat Routinely? Yes [email or web address] Information not available 06/13/2022 Do You Have Smoke And Carbon Monoxide Detectors In Your Home? Yes [email or web address] Information not available 06/13/2022 How Much Tobacco Do You Smoke? No [email or web address] Information not available 06/13/2022 Do You Feel Stressed (tense, Restless, Nervous, Or Anxious, Or Unable To Sleep At Night)? [id number] [email or web address] Information not available 06/13/2022 Do You Use Any Illicit Or Recreational Drugs? No [email or web address] Information not available 06/13/2022 Do You Use Sunscreen Routinely? Yes [email or web address] Information not available 09/25/2023 Has Tobacco Cessation Counseling Been Provided? No [email or web address] Information not available 07/18/2022 Have You Used IV Drugs? No Information not available 06/13/2022 Do You Or Have You Ever Used Any Other Forms Of Tobacco Or Nicotine? No [email or web address] Information not available 07/18/2022 Sex: Unknown Functional Status Question Answer Note LastModified by Organizat ion Details LastModified Time Do you have difficulty walking or climbing stairs? No [email or web address] Information not available 07/18/2022 Are you able to walk? YESWOREST [email or web address] Information not available 06/13/2022 Are you able to care for yourself? Yes [email or web address] Information not available 07/18/2022 Do you have difficulty dressing or bathing? No [email or web address] Information not available 07/18/2022 What is your exercise level? Occasional [email or web address] Information not available 06/13/2022 Mental Status None recorded. Family History Relationship Description Onset Age of this Age Resolved Age Notes LastModified by Organization Details LastModified Time Mother Malignant tumor of breast [email or web address] Not available 06/13 14:38:49 Mother Osteoporosis [email or web address] Not luis ilable 06/13/2022 14:38:49 Daughter Anxiety disorder [email or web address] Not available 06/13 14:38:49 Brother Depressive disorder [email or web address] Not available 06/13 14:38:49 Brother Depressive disorder [email or web address] Not available 2023 10:47:41 Father Heart disease [email or web address] Not available 06/13 14:38:49 Medical History Condition Response Other N Blood Transfusion N Dermatologic Disorders Y Gestational Diabetes N Anxiety Disorder N Autoimmune disease Y Arthritis N Polyps N Infertility N Acid Reflux (GERD) Y Cancer N Varicosities N Stroke N Neurologic/Epilepsy N Fibromyalgia N Headaches N Kidney Disease N Heart Problems N Kidney or Bladder Problems N Eating Disorder N Art (IVF or FET) N Hepatitis/Liver Disease N No Past Medical History N Urinary Tract Infection Y Asthma N Trauma/Violence N Thrombophilias N Allergies (Food, seasonal, environmental ) Y Breast Cancer N Drug/Latex Allergies/Reactions Y Lung Disease N Defects or Inherited Disease N Breast Problem Y Hematologic disorders N Anesthesia Complications N History of STI N Deep Vein Thrombosis N Polycystic ovary syndrome N History of abnormal pap Y Endometriosis Y High Cholesterol Y Thyroid Problems N GI Problems N Anemia Y Psychiatric Illness N Ovarian Cancer N Diabetes N Pulmonary (TB, Asthma) N Eczema N Abuse/Domestic Violence N Depression/ depression N Heart Disease N Pre-Eclampsia N Hypertension N Osteoporosis N Gynecological History Statement/Question Response Date of Last Mammogram 09/27/2022 Date of LMP 04/23/2012 N Was last menstrual period normal N STIs/STDs N If Post Menopausal, Age at Menopause 48 Date of control 07/24/1984 Date of Last Colonoscopy 08/06/2020 None Desired Control Method None On BCP's at Conception? N HPV Vaccine N Duration of Flow (days) 6 Current Control Method Partner Vas ectomy Age at First Child 26 Frequency of Cycle (Q days) 27 Most Recent Bone Density 05/06/2019 Sexually Active? Y Age of first menstrual cycle 10 Date of Last Pap Smear 09/25/2023 Sexual Problems? N LMP Approximate 08/06/2020 Y 06/23/2020 Obstetrics History GPAL:G 2 P 2 0 0 2 Type Value Full Term 2 Living 2 Total 2 Past Encounters Encounter ID Performer Location Encounter Start Date Encounter Closed Date Diagnosis/Indication Diagnosis SNOMED-CT Code Diagnosis ICD10 Code Diagnosis Note [id number] Yuliana Rod [facility] [address],[place] [address] 06/13/2022 14:11:29 06/13/2022 15:04:51 Vulvovaginitis 24033469 N76.0 send vag cultures if neg consider biopsy [id number] Yuilana Rod [facility] [address],[place] [address] 07/18/2022 12:07:05 07/18/2022 13:56:22 Gynecologic examination 27102719 Z01.419 [id number] Yuliana Rod [facility] [address],[place] [address] 09/25/2023 10:47:28 09/25/2023 13:22:09 Health Concerns Section Related Observation LastModified by Organization Detai ls LastModified Time None Recorded Concern Status LastModified by Organization Details LastModified Time None Recorded Advance Directives Directive None Recorded Payers Encounter Date Sequence Insurance Name Policy Number Policy Caldera Covered Member ID Caldera Member ID Guarantor Name 06/13/2022 1 [facility] [id number] Jenna Jenkins [id number] Jenna Jenkins 07/18/2022 1 [facility] [id number] Jenna Jenkins [id number] Jenna Jenkins 09/25/2023 1 [facility] [id number] Jenna Jenkins [id number] Jenna Jenkins Notes Date Note Type Note Provider Name and Address Organization Details Recorded Time 06/13/2022 text/html vaginal rash? 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 06/13/2022 15:04:00 07/18/2022 text/html Annual GYNReport ed bypatient.History: no gynecologic complaints; no change in interval history Breast:No breast pain; No breast lump; No nipple discharge Sexual complaints:No sexual complaints; No pain during intercourse; Normal libido Menopausal Symptoms:No menopausal symptoms; Normal vaginal lubrication Psychological symptoms:No depression; No anxiety; No PMDD Preventive measures:Encourage self breast examination; Encourage regular exercise; Encourage no tobacco use; Encourage regular mammograms starting age 40; Needs to schedule mammogram; Up to date on colonoscopy screeningNotes:pt prefers pap after reviewing guidelines, irritation resolved after last appt, doing well, working on home renovation Yuliana Rod CNM [address], [place], [address], [facility] 07/18/2022 13:02:03 09/25/2023 text/html Annual GYNReport ed bypatient.History: no gynecologic complaints Menstrual cycle:Normal menses Urinary symptoms:No hematuria; No incontinence Vulva:No genital lesion Vagina:Normal vaginal discharge Breast:No breast pain; No breast lump; No nipple discharge; mammograms/ MRI at [facility] Sexual complaints:No sexual complaints; No pain during intercourse; Normal libido Menopausal Symptoms:No menopausal symptoms; Normal vaginal lubrication Psychological symptoms:No depression; No anxiety; No PMDD Preventive measures:Encourage self breast examination; Encourage regular exercise; Encourage no tobacco use; Followed with yearly pap smearsNotes:starte d on tamoxifen for increased risk of breast cancer Yuliana Rod CNM [address], [place], [address], [facility] 09/25/2023 11:39:53 OBGyn Episode Ob Episode Information Episode Created Date Number of Fetuses Patient Bloodtype Patient rh Status Prepregnancy Weight lbs Domestic Partner Domestic Partner Phone Father Name A Auxiliary Status 06/14/19 23 1 CLOSED Fetus Data First Name Last Name Admitted to NICU Weight (g) Sex Living Outcome Pediatric Complications Fetus ID Race Codes Race Delivery Type 3685.43 5 F Full Term [id number] Vaginal Delivery Chano Calculation Initial Chano Date Initial Exam Date Initial Exam Provider Initial Ultrasound Date Last Menstrual Period Date Ultra Sound Weeks Gestation 0 Eighteen To Twenty Week Chano Update Ultra Sound Date Fundal Height At Umbil Quickening Date Ultra Sound Latest Weeks Gestation Final Chano Confirmed By Final Chano Confirmed Date Final Chano Date Ultra Sound Latest Days Gestation 0 0 Menstrual History Last Menstrual Date Menses Monthly On Bcp Conception Prior Menses Frequency Hcg Plus Date Menarche Onset Age Delivery Information Delivery Date Delivery Type Labor Anesthesia Weeks Gestation Incision Type Labor Labor Length Hrs Delivered By Post Complications Tubal Sterilization Discharge Date Comments 4 40 Discharge Information Feeding Method Contraceptive Method Maternal HG B and HCT Levels Ob Episode Information Episode Created Date Number of Fetuses Patient Bloodtype Patient rh Status Prepregnancy Weight lbs Domestic Partner Domestic Partner Phone Father Name A Auxiliary Status 06/14/19 1 CLOSED Fetus Data First Name Last Name Admitted to NICU Weight (g) Sex Living Outcome Pediatric Complications Fetus ID Race Codes Race Delivery Type 3458.63 9 M Full Term [id number] Vaginal Delivery Chano Calculation Initial Chano Date Initial Exam Date Initial Exam Provider Initial Ultrasound Date Last Menstrual Period Date Ultra Sound Weeks Gestation 0 Eighteen To Twenty Week Chano Update Ultra Sound Date Fundal Height At Umbil Quickening Date Ultra Sound Latest Weeks Gestation Final Chano Confirmed By Final Chano Confirmed Date Final [place] Date Ultra Sound Latest Days Gestation 0 0 Menstrual History Last Menstrual Date Menses Monthly On Bcp Conception Prior Menses Frequency Hcg Plus Date Menarche Onset Age Delivery Information Delivery Date Delivery Type Labor Anesthesia Weeks Gestation Incision Type Labor Labor Length Hrs Delivered By Post Complications Tubal Sterilization Discharge Date Comments 2 40 Discharge Information Feeding Method Contraceptive Method Maternal HG B and HCT Levels
== END 2024-03-17 15:15 | disposition home or self-care (01) ==
LOC: ANHBWCLAB 15:17
PROVIDERS: PCP Nurse Practitioner Adult Health; Visit Provider Physician Assistant
DX: R53.83 Other fatigue (principal)
CPT/HCPCS: 36415; 85025

== ENCOUNTER 2024-03-30 12:47 | Outpatient (CLI) | payer OTHER, SELFPAY ==
--- NOTE | ~2024-03-30 | CT_ITS ---
EXAMINATION: CT soft tissue neck w con DATE: 03/30/2024 13:17 INDICATION: Localized swelling, mass and lump, neck. TECHNIQUE: Computed tomography (CT) of the neck was performed with 75 mL Omnipaque-350 intravenous co ntrast. Automated exposure control and iterative reconstruction technique were employed. The dose-carmela gth product was 295.54 mGy-cm. COMPARISON: None FINDINGS: There is mild scarring at the lung apices. There is a 4 mm nodule in left thyroid lobe, lik fernanda not clinically significant. No pathologically enlarged lymph nodes. There is plaque in the proxim al internal carotid arteries with 0% stenosis relative to normal distal artery lumen diameters. The m astoid air cells are normal. There is severe cervical spondylosis. IMPRESSION: 1. No lymphadenopathy. Reviewed, dictated and finalized at location A. TICS FITTER IMPRESSION: 1. No lymphadenopathy.
[2024-03-30 13:06] LABS: Estimated Glomerular Filt Rate > 60
== END 2024-03-30 12:48 | disposition home or self-care (01) ==
PROVIDERS: PCP Nurse Practitioner Adult Health; Visit Provider Nurse Practitioner Family
DX: R22.1 Localized swelling, mass and lump, neck (principal)
CPT/HCPCS: 70491; Q9967

== ENCOUNTER 2024-04-17 11:15 | Emergency (ER) | payer OTHER, SELFPAY ==
--- NOTE | ~2024-04-17 | CT_ITS ---
EXAMINATION: CTA chest PE protocol DATE: 04/17/2024 14:58 ALIGNING INSPECTOR INDICATION: Left-sided rib pain after cough TECHNIQUE: Computed tomographic angiography (CTA) of the chest was performed with 100 mL Omnipaque-35 0 intravenous contrast. The dose-length product was 137.03 mGy-cm. Maximum intensity projection 3D-re constructions of the aorta and other arteries were constructed by the technologist on a separate work station. COMPARISON: None. FINDINGS/OBSERVATIONS: PULMONARY ARTERIES: No filling defect is identified within the main or proximal pulmonary artery. The main pulmonary artery is not enlarged. THORACIC AORTA: No aneurysmal dilatation or dissection is present. The great vessels are intact LUNGS: Cylindrical bronchiectasis with bibasilar atelectasis. Bibasilar scarring. The remainder of the lungs are clear. No MEDIASTINUM: No morphologically suspicious or pathologically enlarged lymph nodes are identified with in the mediastinum or bilateral axilla. BONES OF THE CHEST: Acute nondisplaced fracture of the left sixth rib (axial series, image 126, sagit alex series, image 106). No additional fractures are appreciated. No significant degenerative disease. No lytic or blastic lesions. HEART: The heart is of normal size, without pericardial effusion. IMPRESSION: No pulmonary embolus. No thoracic aortic dissection. Acute nondisplaced fracture of the left lateral rib Reviewed, dictated and finalized at location A. NING INSPECTOR
--- NOTE | ~2024-04-17 | XR_ITS ---
EXAMINATION: XR chest 2V DATE: 04/17/2024 11:38 INDICATION: Cough. Chest pain. TECHNIQUE: Frontal and lateral views of the chest were obtained. COMPARISON: Chest 2 views 07/27/2023, chest CT 07/30/2023 FINDINGS: There is mild scarring at the lung apices. No pleural effusion or pneumothorax. The heart s ize is normal. There is mild chronic anterior wedging of multiple mid thoracic vertebral bodies. IMPRESSION: 1. Stable mild scarring at the lung apices. Reviewed, dictated and finalized at location A. TER MECHANIC
--- OUTSIDE RECORDS SUMMARY | 2024-04-17 11:16 | XMS_ITS | Clinical Summary ---
Author Organization [facility] Address [address] [address] Phone Care Team Providers Care Wind Technician Name Role Phone Provider, None Primary Care Provider Unavailabl e Allergies Active Allergy Reactions Criticality Noted Date Comments Codeine Unknown 01/22/2015 Medications terbinafine (LAMISIL) 250 MG Tablet 2 01/07/2015 Active HALOG 0.1 % Cream Apply 0.1 Tubes 2 times daily. 1 Tube 2 01/22/2015 Active omeprazole (PRILOSEC) 20 MG CAPSULE DELAYED RELEASE Take 1 Cap by mouth daily. 90 Cap 1 09/10/2015 Active Active Problems Problem Noted Date Diagnosed Date History of oral lesions 01/22/2015 Rash 01/22/2015 Psoriasis 01/22/2015 GERD (gastroesophageal reflux disease) Immunizations Immunization Administration Dates Next Due Influenza Vaccine greater than 3 yrs 02/23/2013 Family History Medical History Relation Name Comments Breast Cancer Mother Relation Name Status Comments Mother Social History Tobacco Use Types Packs/Day Years Used Date Smoking Tobacco: Never Alcohol Use Standard Drinks/Week Comments Yes 2 (1 standard drink = 0.6 oz pur e alcohol) Sexually Active Control Partners Comments Not Currently Comments No Sex and Gender Information Value Date Recorded Sex Assigned at Not on file Legal Sex Female 7:40 PM CDT Gender Identity Not on file Sexual Orientation Not on file Last Filed Vital Signs Vital Sign Reading Time Taken Comments Blood Pressure 118/72 01/22/2015 8:34 AM GERIATRIC NURSING ASSISTANT Pulse 102 01/22/2015 8:34 AM GERIATRIC NURSING ASSISTANT Temperature 36.3 C (97.3 F) 01/22/2015 8:34 AM GERIATRIC NURSING ASSISTANT Respiratory Rate 18 01/22/2015 8:34 AM GERIATRIC NURSING ASSISTANT Oxygen Saturation 97% 01/22/2015 8:34 AM GERIATRIC NURSING ASSISTANT Inhaled Oxygen Concentration - - Weight 52.8 kg (116 lb 4.8 oz) 01/22/2015 8:34 A M GERIATRIC NURSING ASSISTANT Height 162.6 cm (5' 4 ) 01/22/2015 8:34 AM GERIATRIC NURSING ASSISTANT Body Mass Index 19.96 01/22/2015 8:34 AM GERIATRIC NURSING ASSISTANT Plan of Treatment Health Maintenance Due Date Last Done Comments Hepatitis C Virus (HCV) Screening 1965 TdaP Immunization 1965 HPV/Cotest 02/06/1994 Cervical Cancer Screening (CCS) 04/23/2013 Pap Smear 04/23/2013 04/23/2010 Cologuard 02/06/2014 Immunochemical Fecal Occult Blood 02/06/2014 Pneumococcal Immunization (5 0+ years) (1 of 1 - PCV) 02/06/2014 Zoster Immunization (1 of 2) 02/06/2014 Mammogram 10/20/2018 10/20/2016 Influenza Immunization (#1) 2023 02/23/2013 SARS-COV-2 Immunization ( season) 2023 Colonoscopy 08/28/2024 08/28/2014 Colorectal Cancer Screening 08/28/2024 Respiratory Syncytial Virus (RSV) Immunization (Adult) (1 - 1-dose 75+ series) 02/06/2039 08/28/2014 Hepatitis B Immunization Aged Out No longer eligible based on patient's age to complete this topic Meningococcal Immunization (ACWY) Aged Out No longer eligible based on patient's age to complete this topic Pneumococcal Immunization Combined Aged Out No longer eligible based on patient's age to complete this topic Rotavirus Immunization Aged Out No lo nger eligible based on patient's age to complete this topic Procedures Procedure Name Priority Date/Time Associated Diagnosis Comments MITUL SCREENING BILATERAL DIGITAL W CAD Routine 10/20/2016 8:29 AM CDT Visit for screening mammogram HM COLONOSCOPY Routine 08/28/2014 HM PAP SMEAR Routine 04/23/2010 from Last 3 Months or Most Recently Relevant to Health Maintenance Results * MITUL SCREENING BILATERAL DIGITAL W CAD (10/20/2016 8:29 AM CDT) Anatomical Region Laterality Modality breast Bilateral Mammography 10/20/2016 8:10 AM CDT Narrative 10/24/2016 7:35 AM CDT - MITUL SCREENING BILATERAL DIGITAL W CAD BILATERAL DIGITAL SCREENING MAMMOGRAM WITH CAD WITH MEDIOLATERAL OBLIQUE CRANIOCAUDAL: 10/20/2016 The study was acquired using digital technology and interpreted from soft copy. Current study was also evaluated with ICAD version 7.2. CLINICAL: Routine screening. Patient has no complaints. No personal history of cancer. Mother with postmenopausal breast cancer. COMPARISONS: Comparison is made to exams dated: 09/06/2015, 08/29/2014, and 08/23/2013 [facility]. BREAST TISSUE: The tissue of both breasts is extremely dense, which lowers the sensitivity of mammography. FINDINGS: There is architectural distortion in the right breast behind the nipple seen with certainty on the craniocaudal view only. No other significant masses, calcifications, or other findings are seen in either breast. IMPRESSION: BI-RAD 0 ADDITIONAL IMAGING EVALUATION NEEDED The architectural distortion in the right breast is indeterminate. Additional views as well as a possible ultrasound are recommended. An immediate follow-up is recommended. The patient has been or will be contacted. Lizeth Viramontes M.D. pw/:10/23/2016 15:14:47 Manager Rfid: Susan CHRISTIE)(Yessica), [facility] letter sent: Additional Imaging Reading location: [facility] BI-RADS: 0 Additional Imaging Evaluation Needed Procedure Note Lizeth Viramontes MD - 10/24/2016 - MITUL SCREENING BILATERAL DIGITAL W CAD BILATERAL DIGITAL SCREENING MAMMOGRAM WITH CAD WITH MEDIOLATERAL OBLIQUE CRANIOCAUDAL: 10/20/2016 The study was acquired using digital technology and interpreted from soft copy. Current study was also evaluated with ICAD version 7.2. CLINICAL: Routine screening. Patient has no complaints. No personal history of cancer. Mother with postmenopausal breast cancer. COMPARISONS: Comparison is made to exams dated: 09/06/2015, 08/29/2014, and 08/23/2013 [facility]. BREAST TISSUE: The tissue of both breasts is extremely dense, which lowers the sensitivity of mammography. FINDINGS: There is architectural distortion in the right breast behind the nipple seen with certainty on the craniocaudal view only. No other significant masses, calcifications, or other findings are seen in either breast. IMPRESSION: BI-RAD 0 ADDITIONAL IMAGING EVALUATION NEEDED The architectural distortion in the right breast is indeterminate. Additional views as well as a possible ultrasound are recommended. An immediate follow-up is recommended. The patient has been or will be contacted. Lizeth Viramontes M.D. pw/:10/23/2016 15:14:47 Manager Rfid: Susan GRIFFITH(R)(M), [facility] letter sent: Additional Imaging Reading location: [facility] BI-RADS: 0 Additional Imaging Evaluation Needed Armin Schwartz MD IMG MAMMO ORDERABLES F inal Result * HM COLONOSCOPY (08/28/2014) Dannie Garg Jr., MD PROCEDURE/MINOR ROMULO GICAL ORDERABLES Final Result * HM PAP SMEAR (04/23/2010) Dannie Garg Jr., MD CHG - LABORATORY Fi nal Result from Last 3 Months or Most Recently Relevant to Health Maintenance Care Teams Wind Technician Relationship Specialty Start Date End Date Provider, None [place] PCP - General 05/19/16
--- OUTSIDE RECORDS SUMMARY | 2024-04-17 11:16 | XMS_ITS | Encounter Summary ---
Author Organization [facility] Address [address] [place] [address] Phone Care Team Providers Care Railroad Switchman Name Role Phone Nataly King MD Unavailable [phone] Unknown, Notinfile Primary Care Provider Unavail able Jp Myers MD Primary Care Provider [phone] Cierra Elaine NP Unavailable [phone] Cierra Elaine NP Primary Care Provider [phone] Encounter Details Date Type Department Care Team (Latest Contact Info) Description 09/27/2022 Orders Only [facility] Scanning, Provider Social History Tobacco Use Types Packs/Day Years Used Date Smoking Tobacco: Never Assessed Comments Unknown Sex and Gender Information Value Date Recorded Sex Assigned at Not on file Legal Sex Female 7:52 PM STAFF WEAPONS OFFICER Gender Identity Not on file Sexual Orientation Not on file documented as of this encounter Plan of Treatment Not on file documented as of this encounter Procedures Procedure Name Priority Date/Time Associated Diagnosis Comments SCAN - RADIOLOGY/IMAGING 09/27/2022 documented in this encounter Results * SCAN - RADIOLOGY/IMAGING (09/27/2022) Anatomical Region Laterality Modality Other us Provider Scanning Final Result documented in this encounter Visit Diagnoses Not on filedocumented in this encounter Care Teams Railroad Switchman Relationship Specialty Start Date End Date Unknown, Notinfile PCP - General 12/29/22 12/30/22 Jp Myers MD PCP - General Family Practice 12/31/22 04/07/24 Cierra Elaine NP [address] [place] [id number] PCP - General Nurse Practitioner 04/08/24 Nataly King MD [address] [facility], [facility] [place] [address] Surgeon Breast Surgery 11/28/22 Cierra Elaine NP [address] [place] [address] Nurse Practitioner Nurse Practitioner 12/31/22 documented as of this encounter
--- OUTSIDE RECORDS SUMMARY | 2024-04-17 11:16 | XMS_ITS | Encounter Summary ---
Author Organization [facility] Address [address] [place] [address] Care Team Providers Care Shot Hole Driller Name Role Phone Unavailable Primary Care Provider Unavailabl e Prior Encounters Date Type Department Care Team Description 11/13/2021 9:30 AM CDT Office Visit [facility] [address] [place] [address] Fartun Reynoso DDS [place] 09/20/2021 10:30 AM CDT Office Visit [facility] [address] [place] [phone] Elvira Zuniga DDS 09/20/2021 10:00 AM CDT Office Visit [facility] [address] [place] [phone] 09/19/2021 3:00 PM CDT Office Visit [facility] [address] [place], [place] [address] [address] Fartun Reynoso DDS [place] 06/12/2021 10:30 AM CDT Office Visit [facility] [id number] [place] [phone] Fartun Reynoso DDS [place] 03/20/2021 9:30 AM LEGAL ENTITY CONTROLLER [facility] Encounter [facility] [address] [place] [address] Provider, Historical 01/30/2021 8:30 AM LEGAL ENTITY CONTROLLER [facility] Encounter [facility] [address] [facility], [place] [address] Provider, Historical 03/14/2019 Converted CPS Chart Documents [facility] [address] [facility], [place] [phone] <No scans attached> 03/14/2019 Converted 13x Documents [facility] [address] [facility], [place] [address] <No scans attached> 03/14/2019 Converted CPS Chart Documents [facility] [address] [facility], [place] [address] <No scans attached> 03/14/2019 Converted 13x Documents [facility] [address] [facility] [place] [address] <No scans attached> Last Filed Vital Signs Vital Sign Reading Time Taken Comments Blood Pressure 109/75 09/20/2021 10:45 AM CDT Pulse 70 09/20/2021 10:45 AM CDT Temperature - - Respiratory Rate - - Oxygen Saturation - - Inhaled Oxygen Concentration - - Weight - - Height - - Body Mass Index - - Plan of Treatment Not on file Procedures Procedure Name Priority Date/Time Associated Diagnosis Comments DELIVERY - REPLACEMENT RETAINER - MAXILLARY Routine 11/13/2021 9:30 AM CDT DELIVERY - REPLACEMENT RETAINER - MANDIBULAR Routine 11/13/2021 9:30 AM CDT CONTRACT ONLY - ORTHODONTIC RETENTION Routine 11/13/2021 9:30 AM CDT TREATMENT COMPLETE Routine 11/13/2021 9: 30 AM CDT DIAGNOSTIC CASTS - FINAL ORTHODONTIC VISIT Routine 11/13/2021 9:30 AM CDT 2D ORAL/FACIAL PHOTOGRAPHIC IMAGE OBTAINED INTRA-ORALLY OR EXTRA-ORALLY - FINAL ORTHODONTIC VISIT Routine 11/13/2021 9:30 AM CDT 2D CEPHALOMETRIC RADIOGRAPHIC IMAGE ACQUISITION, MEASUREMENT AND ANALYSIS - FINAL ORTHODONTIC VISIT Routine 11/13/2021 9:30 AM CDT PANORAMIC RADIOGRAPHIC IMAGE - FINAL ORTHODONTIC VISIT Routine 11/13/2021 9:30 AM CDT INTRAORAL PHOTO Routine 09/20/2021 10:30 AM CDT INTRAORAL PHOTO Routine 09/20/2021 10:30 AM CDT INTRAORAL PHOTO Routine 09/20/2021 10:30 AM CDT INTRAORAL PHOTO Routine 09/20/2021 10:30 AM CDT BITEWINGS - FOUR RADIOGRAPHIC IMAGES Routine 09/20/2021 10:30 AM CDT ADDITIONAL X-RAY Routine 09/20/2021 10:3 0 AM CDT ADDITIONAL X-RAY Routine 09/20/2021 10:3 0 AM CDT ADDITIONAL X-RAY Routine 09/20/2021 10:3 0 AM CDT ADDITIONAL X-RAY Routine 09/20/2021 10:3 0 AM CDT ADDITIONAL X-RAY Routine 09/20/2021 10:3 0 AM CDT PERIODIC ORAL EVALUATION - ESTABLISHED PATIENT Routine 09/20/2021 10:30 AM CDT SINGLE X-RAY Routine 09/20/2021 10:30 AM CDT PROPHYLAXIS - ADULT Routine 09/20/2021 1 0:00 AM CDT ORAL HYGIENE INSTRUCTIONS Routine 2021 10:00 AM CDT 2 CEMENT CROWN Routine 04/23/2021 2:00 AM LEGAL ENTITY CONTROLLER SINGLE X-RAY Routine 04/23/2021 2:00 AM LEGAL ENTITY CONTROLLER INTRAORAL PHOTO Routine 04/23/2021 2:00 AM LEGAL ENTITY CONTROLLER PERIODIC ORTHODONTIC TREATMENT VISIT Routine 03/20/2021 2:00 AM LEGAL ENTITY CONTROLLER 2 CORE BUILDUP, INCLUDING ANY PINS WHEN REQUIRED Routine 03/20/2021 2:00 AM LEGAL ENTITY CONTROLLER 2 ZIRCONIA [facility] MADE CROWN POST Routine 03/20/2021 2:00 AM LEGAL ENTITY CONTROLLER PERIODIC ORTHODONTIC TREATMENT VISIT Routine 01/30/2021 2:00 AM LEGAL ENTITY CONTROLLER PERIODIC ORAL EVALUATION - ESTABLISHED PATIENT Routine 01/30/2021 2:00 AM LEGAL ENTITY CONTROLLER ORAL HYGIENE INSTRUCTIONS Routine 2020 2:00 AM LEGAL ENTITY CONTROLLER PROPHYLAXIS - ADULT Routine 01/30/2021 2 :00 AM LEGAL ENTITY CONTROLLER PERIODIC ORTHODONTIC TREATMENT VISIT Routine 11/17/2020 2:00 AM CDT PERIODIC ORTHODONTIC TREATMENT VISIT Routine 09/22/2020 2:00 AM CDT PERIODIC ORTHODONTIC TREATMENT VISIT Routine 08/14/2020 2:00 AM CDT INVISALIGN COMPREHENSIVE - DUAL ARCH Routine 06/28/2020 2:00 AM CDT NON-CONTRACT ONLY - MISCELLANEOUS ORTHODONTIC PROCEDURE Routine 06/28/2020 2:00 AM CDT NON-CONTRACT ONLY - MISCELLANEOUS ORTHODONTIC PROCEDURE Routine 06/28/2020 2:00 AM CDT INTRAORAL PHOTO Routine 06/28/2020 2:00 AM CDT 2D CEPHALOMETRIC RADIOGRAPHIC IMAGE ACQUISITION, MEASUREMENT AND ANALYSIS Routine 06/28/2020 2:00 AM CDT PANORAMIC RADIOGRAPHIC IMAGE Routine 06/28/2020 2:00 AM CDT DIAGNOSTIC CASTS Routine 06/28/2020 2:00 AM CDT COMPREHENSIVE ORTHODONTIC TREATMENT OF THE ADULT DENTITION - 18M Routine 06/28/2020 2:00 AM CDT CONTROLLER COAL OR ORE CONSULTATION Routine 2020 2:00 AM CDT PERIODIC ORAL EVALUATION - ESTABLISHED PATIENT Routine 05/25/2020 2:00 AM CDT ADJUNCTIVE PRE-DIAGNOSTIC TEST THAT AIDS IN DETECTION OF MUCOSAL ABNORMALITIES Routine 05/25/2020 2:00 AM CDT ORAL HYGIENE INSTRUCTIONS Routine 2020 2:00 AM CDT TOPICAL APPLICATION OF FLUORIDE VARNISH Routine 05/25/2020 2:00 AM CDT PROPHYLAXIS - ADULT Routine 05/25/2020 2 :00 AM CDT BITEWINGS - FOUR RADIOGRAPHIC IMAGES Routine 05/25/2020 2:00 AM CDT ADDITIONAL X-RAY Routine 05/25/2020 2:00 AM CDT ADDITIONAL X-RAY Routine 05/25/2020 2:00 AM CDT ADDITIONAL X-RAY Routine 05/25/2020 2:00 AM CDT ADDITIONAL X-RAY Routine 05/25/2020 2:00 AM CDT ADDITIONAL X-RAY Routine 05/25/2020 2:00 AM CDT SINGLE X-RAY Routine 05/25/2020 2:00 AM CDT PERIODIC ORAL EVALUATION - ESTABLISHED PATIENT Routine 11/19/2019 2:00 AM CDT ORAL HYGIENE INSTRUCTIONS Routine 2019 2:00 AM CDT PROPHYLAXIS - ADULT Routine 11/19/2019 2 :00 AM CDT CANCELLED APPOINTMENT Routine 10/03/2019 2:00 AM CDT PERIODIC ORAL EVALUATION - ESTABLISHED PATIENT Routine 03/02/2019 2:00 AM LEGAL ENTITY CONTROLLER ORAL HYGIENE INSTRUCTIONS Routine 2019 2:00 AM LEGAL ENTITY CONTROLLER PROPHYLAXIS - ADULT Routine 03/02/2019 2 :00 AM LEGAL ENTITY CONTROLLER BITEWINGS - FOUR RADIOGRAPHIC IMAGES Routine 03/02/2019 2:00 AM LEGAL ENTITY CONTROLLER ADDITIONAL X-RAY Routine 03/02/2019 2:00 AM LEGAL ENTITY CONTROLLER ADDITIONAL X-RAY Routine 03/02/2019 2:00 AM LEGAL ENTITY CONTROLLER ADDITIONAL X-RAY Routine 03/02/2019 2:00 AM LEGAL ENTITY CONTROLLER ADDITIONAL X-RAY Routine 03/02/2019 2:00 AM LEGAL ENTITY CONTROLLER ADDITIONAL X-RAY Routine 03/02/2019 2:00 AM LEGAL ENTITY CONTROLLER SINGLE X-RAY Routine 03/02/2019 2:00 AM LEGAL ENTITY CONTROLLER FM BLEACH IN-OFFICE Routine 09/17/2018 2 :00 AM CDT 19 B COMPOSITE FILLING Routine 9 2:00 AM CDT PERIODIC ORAL EVALUATION - ESTABLISHED PATIENT Routine 08/19/2018 2:00 AM CDT ORAL HYGIENE INSTRUCTIONS Routine 2018 2:00 AM CDT PROPHYLAXIS - ADULT Routine 08/18/2018 2 :00 AM CDT PERIODIC ORAL EVALUATION - ESTABLISHED PATIENT Routine 01/25/2018 2:00 AM LEGAL ENTITY CONTROLLER ORAL HYGIENE INSTRUCTIONS Routine 2017 2:00 AM LEGAL ENTITY CONTROLLER TOPICAL APPLICATION OF FLUORIDE VARNISH Routine 01/25/2018 2:00 AM LEGAL ENTITY CONTROLLER PROPHYLAXIS - ADULT Routine 01/25/2018 2 :00 AM LEGAL ENTITY CONTROLLER BITEWINGS - FOUR RADIOGRAPHIC IMAGES Routine 01/25/2018 2:00 AM LEGAL ENTITY CONTROLLER ADDITIONAL X-RAY Routine 01/25/2018 2:00 AM LEGAL ENTITY CONTROLLER ADDITIONAL X-RAY Routine 01/25/2018 2:00 AM LEGAL ENTITY CONTROLLER ADDITIONAL X-RAY Routine 01/25/2018 2:00 AM LEGAL ENTITY CONTROLLER ADDITIONAL X-RAY Routine 01/25/2018 2:00 AM LEGAL ENTITY CONTROLLER ADDITIONAL X-RAY Routine 01/25/2018 2:00 AM LEGAL ENTITY CONTROLLER SINGLE X-RAY Routine 01/25/2018 2:00 AM LEGAL ENTITY CONTROLLER PERIODIC ORAL EVALUATION - ESTABLISHED PATIENT Routine 07/15/2017 2:00 AM CDT ORAL HYGIENE INSTRUCTIONS Routine 2017 2:00 AM CDT TOPICAL APPLICATION OF FLUORIDE VARNISH Routine 07/15/2017 2:00 AM CDT PROPHYLAXIS - ADULT Routine 07/15/2017 2 :00 AM CDT PERIODIC ORAL EVALUATION - ESTABLISHED PATIENT Routine 12/31/2016 2:00 AM LEGAL ENTITY CONTROLLER ORAL HYGIENE INSTRUCTIONS Routine 2016 2:00 AM LEGAL ENTITY CONTROLLER TOPICAL APPLICATION OF FLUORIDE VARNISH Routine 12/31/2016 2:00 AM LEGAL ENTITY CONTROLLER PROPHYLAXIS - ADULT Routine 12/31/2016 2 :00 AM LEGAL ENTITY CONTROLLER 30 B AMALGAM 1 SURFACE Routine 7 2:00 AM CDT 19 B AMALGAM 1 SURFACE Routine 7 2:00 AM CDT CHLORHEXIDINE Routine 05/27/2016 2:00 AM CDT COMPREHENSIVE ORAL EVALUATION - NEW OR ESTABLISHED PATIENT Routine 05/27/2016 2:00 AM CDT ORAL HYGIENE INSTRUCTIONS Routine 2016 2:00 AM CDT 1 FM IRR W/GROSS SCALE Routine 7 2:00 AM CDT TOPICAL APPLICATION OF FLUORIDE VARNISH Routine 05/27/2016 2:00 AM CDT PROPHYLAXIS - ADULT Routine 05/27/2016 2 :00 AM CDT PANORAMIC RADIOGRAPHIC IMAGE Routine 05/27/2016 2:00 AM CDT INTRAORAL - COMPREHENSIVE SERIES OF RADIOGRAPHIC IMAGES Routine 05/27/2016 2:00 AM CDT INTRAORAL PHOTO Routine 05/27/2016 2:00 AM CDT INTRAORAL PHOTO Routine 05/27/2016 2:00 AM CDT INTRAORAL PHOTO Routine 05/27/2016 2:00 AM CDT INTRAORAL PHOTO Routine 05/27/2016 2:00 AM CDT 3 LO COMPOSITE FILLING Routine 7 2:00 AM CDT 2 LO COMPOSITE FILLING Routine 7 2:00 AM CDT 20 B COMPOSITE FILLING Routine 7 2:00 AM CDT 18 O COMPOSITE FILLING Routine 7 2:00 AM CDT 15 O COMPOSITE FILLING Routine 7 2:00 AM CDT Visit Diagnoses Not on file Administered Medications Insurance O O
--- OUTSIDE RECORDS SUMMARY | 2024-04-17 11:16 | XMS_ITS | Clinical Summary ---
Author Organization [facility] [place] [address] [place] [address] Care Team Providers Care Legal File Clerk Name Role Phone Unavailable Primary Care Provider Unavailabl e Allergies Active Allergy Reactions Criticality Noted Date Comments Codeine Nausea And Vomiting,Unknown 01/23/20 15 Medications ascorbic acid (VITAMIN C) 1,000 mg tablet Take 1,000 mg by mouth in the morning. Active ascorbic acid, vitamin C, 500 mg capsule 1 Active aspirin 81 mg tablet Take 81 mg by mouth. Active cholecalciferol (VITAMIN D-3) 25 mcg (1,000 unit) capsule 2 Active cholecalciferol (VITAMIN D-3) 10 mcg (400 unit) capsule Take by mouth. A ctive clindamycin-lo zoyl peroxide (BENZACLIN) gel Apply thin layer to AA QAM for acne. 1 Active clobetasoL (TEMOVATE) 0.05 % ointment Apply to AA on right arm BID for itching/rash. 1 Active omeprazole (PriLOSEC) [address] capsule Take 1 tablet by mouth 1 (one) time each day. 2 Active rosuvastatin (CRESTOR) 20 mg tablet Take 20 mg by mouth in the morning. 2 Active spironolactone (ALDACTONE) 50 mg tablet Take 1 tablet (50mg) po QHS x 1 week then increase to 2 tablets (100mg) PO QHS if tolerated thereafter. 1 Active tretinoin (RETIN-A) 0.025 % cream Apply thin layer to entire face at bedtime, starting 2x a week then increase to 3-5x a week as tolerated. 1 Active vitamin E, dl, acetate, 90 mg (200 unit) capsule Active Active Problems Problem Noted Date Diagnosed Date DDD (degenerative disc disease), lumbar 11/18/19 20 Hyperlipidemia 11/19/2018 GERD (gastroesophageal reflux disease) 9 History of oral lesions 01/22/2015 Psoriasis 01/22/2015 Rash 01/22/2015 Immunizations Immunization Administration Dates Next Due Influenza, live, intranasal, quadrivalent 2019,11/19/2018 Influenza, unspecified 11/30/2020 Tdap 11/19/2018 Varicella 02/23/2013 Social History Tobacco Use Types Packs/Day Years Used Date Smoking Tobacco: Never Smokeless Tobacco: Never Tobacco Cessation:Counseling Given: Not Answered Alcohol Use Standard Drinks/Week Comments Yes 5 (1 standard drink = 0.6 oz pur e alcohol) Comments Unknown Sex and Gender Information Value Date Recorded Sex Assigned at Not on file Legal Sex Female 4:05 PM PST Gender Identity Not on file Sexual Orientation Not on file Last Filed Vital Signs Vital Sign Reading Time Taken Comments Blood Pressure 109/75 09/20/2021 10:45 AM CDT Pulse 70 09/20/2021 10:45 AM CDT Temperature - - Respiratory Rate - - Oxygen Saturation - - Inhaled Oxygen Concentration - - Weight - - Height - - Body Mass Index - - Plan of Treatment Health Maintenance Due Date Last Done Comments Velscope Screening 11/24/2020 05/25/2020 Dental Oral Exam 03/24/2022 09/20/2021, 09/2020, 05/25/2020, Additional history exists Dental Prophylaxis 03/24/2022 09/20/2021, 1 04/02/2020, 05/25/2020, Additional history exists Dental X-Ray: Bitewings 03/24/2022 09/20/2021 Dental X-Ray: Full Mouth 09/22/2024 09/21/2021, 05/2016 Dental X-Ray: Panoramic 11/15/2024 11/15/19 22, 06/28/2020, 05/27/2016 Meningococcal B Vaccine Aged Out No l onger eligible based on patient's age to complete this topic Procedures Procedure Name Priority Date/Time Associated Diagnosis Comments PERIODIC ORAL EVALUATION - ESTABLISHED PATIENT Routine 09/20/2021 10:30 AM CDT PROPHYLAXIS - ADULT Routine 09/20/2021 1 0:00 AM CDT PANORAMIC RADIOGRAPHIC IMAGE Routine 06/28/2020 2:00 AM CDT ADJUNCTIVE PRE-DIAGNOSTIC TEST THAT AIDS IN DETECTION OF MUCOSAL ABNORMALITIES Routine 05/25/2020 2:00 AM CDT INTRAORAL - COMPREHENSIVE SERIES OF RADIOGRAPHIC IMAGES Routine 05/27/2016 2:00 AM CDT from Last 3 Months or Most Recently Relevant to Health Maintenance Insurance O NA O O
--- OUTSIDE RECORDS SUMMARY | 2024-04-17 11:16 | XMS_ITS | Data Portability ---
Author Organization [facility], Main Office Address [address] [address] Assessment No assessment recorded. Plan of Treatment Reminders Order Date Submit Date Provider Last Modified By Organization Details Last Modified Time Details Appointments None recorded. Lab lipid panel, serum 2018 019 [facility], [address] [facility], [place], [address], 0 05:00:53 CMP, serum or plasma 2018 019 [facility], [address] [facility], [place], [address], 0 05:00:53 CMP, serum or plasma 2017 018 [facility], [address], [place], [address], 9 05:01:12 CBC w/ auto diff 2017 018 [facility], [address] [facility] [address], [place], [address], 9 05:01:12 lipid panel, serum 2017 018 [facility], [address] [facility] [address], [place], [address], 9 05:01:12 urinalysis complete, reflex culture 2017 018 [facility], [address] [facility] [address], [place], [address], 9 05:01:12 urinalysis , dipstick 2017 018 [email or web address] Main Office, [address] [facility] [address], [place], [address], 8 16:51:38 culture, urine 2017 018 [facility], [address] [facility] [address], [place], [address], 9 05:00:55 CMP, serum or plasma 2017 018 [facility], [address] [facility] [address], [place], [address], 8 05:00:22 lipid panel, serum 2017 018 [facility], [address] [address], [place], [address], 8 05:00:22 Referral None recorded. Procedures None recorded. Surgeries None recorded. Imaging None recorded. Medication Orders rosuvastat in 20 mg tablet 2018 019 INTERFACE [facility] [address]), [address] [place], [id number], 9 19:17:55 tizanidine 6 mg capsule [address] [facility] [address]), [address] [facility], [place], [place], [id number], 9 19:01:27 indomethac in 50 mg capsule 2018 019 INTERFACE [facility] [address], [address] [place], [place], [id number], 9 17:50:29 Macrobid 100 mg capsule [address] [facility] [address]), [address], [place], [place], [id number], 9 19:00:25 rosuvastat in 20 mg tablet 2017 018 INTERFACE [facility] ([facility] [address] [facility] [address], [place], [place], [id number], 8 09:11:02 Patient TargetsNo targets recorded. Patient Instructions Encounter Date Encounter Id Patient Instructions Last Modified By Organization Details Last Modified Time 08/17/2017 [id number] high cholesterol : care instructions [email or web address] Not available 08/17/2017 09:10:32 Reason for Referral None Reported. Results Created Date Observation Date Name Description Value Unit Range Abnormal Flag Note LastModifiedBy Organization Detail LastModifiedTime 08/18/19 18 08/17/2017 CMP, serum or plasm a glucose, fasting 88 mg/dL 70-99 Not Available Med Antonio rodriguez [address] [place] [address], [address], 08/18/2017 07:49:47 08/18/19 18 08/17/2017 CMP, serum or plasm a BUN 16 mg/dL 9-23 Not Available Med [facility] [address] [place] [address], [place], [address], 08/18/2017 07:49:47 08/18/19 18 08/17/2017 CMP, serum or plasm a creatinine 0.78 mg/dL 0.50-1 .20 Not Available Med [facility] [address] [place] [address], [address], 08/18/2017 07:49:47 08/18/19 18 08/17/2017 CMP, serum or plasm a sodium 145 mEq/L 132-14 6 Not Available [facility] [address] [place] [address], [address], 08/18/2017 07:49:47 08/18/19 18 08/17/2017 CMP, serum or plasm a potassium 4.2 mEq/L 3.5-5. 5 Not Available Med [facility] [place] [address], [address], 08/18/2017 07:49:47 08/18/19 18 08/17/2017 CMP, serum or plasm a chloride 107 mEq/L 99-109 Not Available [facility] [address] [address], [place], [address], 08/18/2017 07:49:47 08/18/19 18 08/17/2017 CMP, serum or plasm a CO2 26 mEq/L 22-33 Not Available [facility] [address] [address], [place], [address], 08/18/2017 07:49:47 08/18/19 18 08/17/2017 CMP, serum or plasm a anion gap 16.2 mEq/L 10-20 Not Available [facility] [address] [address], [place], [address], 08/18/2017 07:49:47 08/18/19 18 08/17/2017 CMP, serum or plasm a calcium 9.1 mg/dL 8.7-10 .7 Not Available [facility] [address] [address], [place], [address], 08/18/2017 07:49:47 08/18/19 18 08/17/2017 CMP, serum or plasm a albumin 4.5 g/dL 3.2-4. 8 Not Available [facility] [address] [place] [address], [place], [address], 08/18/2017 07:49:47 08/18/19 18 08/17/2017 CMP, serum or plasm a protein, total 7.2 g/dL 5.7-8. 2 Not Available [facility] [address] [place] [address], [place], [address], 08/18/2017 07:49:47 08/18/19 18 08/17/2017 CMP, serum or plasm a bilirubin, total 0.4 mg/dL 0.3-1. 2 Not Available [facility] [address] [place] [address], [place], [address], 08/18/2017 07:49:47 08/18/19 18 08/17/2017 CMP, serum or plasm a ALT (SGPT) 26 U/L 10-49 Not Available [facility] [address], [place], [address], 08/18/2017 07:49:47 08/18/19 18 08/17/2017 CMP, serum or plasm a AST (SGOT) 29 U/L 0-33 Not Available [facility] [address], [place], [address], 08/18/2017 07:49:47 08/18/19 18 08/17/2017 CMP, serum or plasm a alk phosphatase 80 U/L 45-129 Not Available [facility] [address], [place], [address], 08/18/2017 07:49:47 08/18/19 18 08/17/2017 CMP, serum or plasm a BUN/creatini ne ratio 20.5 ratio 10-26 Not Available Med Antonio rodriguez [address], [place], [address], 08/18/2017 07:49:47 08/18/19 18 08/17/2017 CMP, serum or plasm a globulin calculated 2.7 g/dL 2.0-3. 8 Not Available [facility] [address] [facility] 121, [place], [address], 08/18/2017 07:49:47 08/18/19 18 08/17/2017 CMP, serum or plasm a A/G ratio 1.7 ratio 0.9-2. 5 Not Available [facility] [address] [facility] [address], [place], [address], 08/18/2017 07:49:47 08/18/19 18 08/17/2017 CMP, serum or plasm a eGFR aa >90 mL/mi n/1.7 3m2 >60 Not Available [facility] [address] [facility] 121, [place], [address], 08/18/2017 07:49:47 08/18/19 18 08/17/2017 CMP, serum or plasm a eGFR 82 mL/mi n/1.7 3m2 >60 eGFR Refer ence Range s: Kathy l: >90 mL/mi n/1.7 3m2 Moder ate Decre ase: 30-59 mL/mi n/1.7 3m2 Sever e Decre ase: 15-29 mL/mi n/1.7 3m2 Kidne y Failu re: <15 mL/mi n/1.7 3m2 Note: Estim ation of GFR using the MDRD equat ion is only valid for patie nts with an eGFR less than 60 mL/mi n/1.7 3m2. The repor t conta ins both eGFR for non-A frica n Ameri cans and eGFR AA for Afric an Ameri cans. [facility] med [facility] n [address] [facility] [address] [facility] [address] [phone] Jaelyn coello MD Not Available [facility] [address] [facility] 121, [place], [address], 08/18/2017 07:49:47 08/18/19 18 08/17/2017 lipid panel , serum cholesterol, total 152 mg/dL <200 The Natio nal Lipid Assoc iatio n and the Natio nal [employer]di stero l Educa tion Progr am ([facility] ) have set the follo wing lipid panel guide lines for adult s ages 20 and up: Genoveva able: < 200 mg/dL Borde rline high: 200-2 39 mg/dL High: > or = 240 mg/dL Not Available [facility] [address] [facility] [address], [place], [address], 08/18/2017 07:49:49 08/18/19 18 08/17/2017 lipid panel , serum triglyceride 73 mg/dL <150 The Natio nal Lipid Assoc iatio n and the Natio nal Heydi stero l Educa tion Progr am (NCEP ) have set the follo wing lipid panel guide lines for adult s ages 20 and up: Kathy l: < 150 mg/dL Borde rline : 150 - 199 mg/dL High: 200 - 499 mg/dL Very High: > or = 500 mg/dL Not Available [facility] [address] [facility] 121, [place], [address], 08/18/2017 07:49:49 08/18/19 18 08/17/2017 lipid panel , serum HDL cholesterol 78 mg/dL >50 The Natio nal Lipid Assoc iatio n and the Natio nal Heydi stero l Educa tion Progr am ([facility] ) have set the [employer] lipid panel guide lines for adult s ages 20 and up: Male: > or = 40 mg/dL Femal e: > or = 50 mg/dL Not Available [facility] [address] [address], [place], [address], 08/18/2017 07:49:49 08/18/19 18 08/17/2017 lipid panel , serum LDL calculated 59 mg/dL <100 The Natio nal Lipid Assoc iatio n and the Natio nal Heydi stero l Educa tion Progr am ([facility] ) have set the [employer] lipid panel guide lines for adult s ages 20 and up: Genoveva able: < 100 mg/dL Above Genoveva able: 100 - 129 mg/dL Borde rline high: 130 - 159 mg/dL High: 160 - 189 mg/dL Very High: > or = 190 mg/dL Not Available [facility] [address] [place] [address], [place], [address], 08/18/2017 07:49:49 08/18/19 18 08/17/2017 lipid panel , serum ldlhdl 0.76 ratio Not Available [facility] [address] [place] [address], [place], [address], 08/18/2017 07:49:49 08/18/1908/17/2017 lipid panel , serum LDL/HDL risk See Note (Note ) Male Femal e Below [place] ge Risk 0.00- 2.28 0.00- 2.34 [place] Risk 2.29- 4.90 2.35- 4.12 Moder ate Risk 4.91- 7.12 4.13- 5.56 High Risk 7.13- 20.00 5.57- 20.00 Not Available [facility] [address] [facility] 121, [place], [address], 08/18/2017 07:49:49 08/18/19 18 08/17/2017 lipid panel , serum total chol/HDL ratio (calculat 1.9 ratio 0.0-5. 0 MDF med fusio n [address] [facility] [address] [facility] [address] [phone] Jaelyn coello MD Not Available [facility] [address] [address], [place], [address], 08/18/2017 07:49:49 11/07/19 18 11/06/2017 cultu re, urine urine culture Result s Below Speci men Descr iptio n Urine Speci al Reque sts CULTU RE Cultu re >100, 000 CFU/m L Esche emma a coli Repor t Statu s Final 11/08 [facility] med [facility] n [address] [facility] [address] [facility] [address] [phone] Jaelyn coello MD Not Available [facility] [address] [place] [address], [place], [address], 11/08/2017 20:59:57 11/07/19 18 11/06/2017 antib iotic sensi tivit y, isola te susceptibili ty Organ ism >100, 000 CFU/m L Esche emma a coli Metho d MIC2 Amika breann <=2 Susce ptibl e Amoxi cilli n/cla vulan ic A 4 Susce ptibl e Ampic illin /sulb actam 4 Susce ptibl e Ampic illin >=32 Resis tant Aztre onam <= 1 Susce ptibl e Cefep roderick <=1 Susce ptibl e Cefot anaid <=4 Susce ptibl e Cefox itin <=4 Susce ptibl e Cefta zidim e <=1 Susce ptibl e Ceftr iaxon e <=1 Susce ptibl e Cefur oxime 4 Susce ptibl e Cepha lothi n 4 Susce ptibl e Cipro floxa breann <=0.2 5 Susce ptibl e Dorip enem <=0.1 2 Susce ptibl e Ertap enem <=0.5 Susce ptibl e Genta micin <=1 Susce ptibl e Imipe nem <=0.2 5 Susce ptibl e Levof loxac in 1 Susce ptibl e Merop enem <=0.2 5 Susce ptibl e Nitro furan toin <=16 Susce ptibl e Piper acill in/Ta zobac jeffrey <=4 Susce ptibl e Tetra cycli ne >=16 Resis tant Tobra mycin <=1 Susce ptibl e Trime th-clark lfame thoxa zole >=16/ 304 Resis tant Not Available [facility] [address] [facility] [address], [place], [address], 11/08/2017 20:59:57 11/07/19 18 11/06/2017 urina lysis , dipst ick Leukocytes 500 Not Available Main Of fice [address] [facility] [address], [place], [address], 11/06/2017 16:23:58 11/07/19 18 11/06/2017 urina lysis , dipst ick Nitrite negati ve Not Available Main Office [address] [facility] [address], [place], [address], 11/06/2017 16:23:58 11/07/19 18 11/06/2017 urina lysis , dipst ick Urobilinogen norm Not Available Main Office [address] [facility] [address], [place], [address], 11/06/2017 16:23:58 11/07/19 18 11/06/2017 urina lysis , dipst ick Protein 30 Not Available Main Offic e [address] [facility] [address], [place], [address], 11/06/2017 16:23:58 11/07/19 18 11/06/2017 urina lysis , dipst ick pH 5 Not Available Main Offic e [address] [facility] [address], [place], [address], 11/06/2017 16:23:58 11/07/19 18 11/06/2017 urina lysis , dipst ick Blood 50 Not Available Main Offic e [address] [facility] [address], [place], [address], 11/06/2017 16:23:58 11/07/19 18 11/06/2017 urina lysis , dipst ick Specific [place] 1.005 Not Available Main O ffice [address] [facility] [address], [place], [address], 11/06/2017 16:23:58 11/07/19 18 11/06/2017 urina lysis , dipst ick Ketone neg Not Available Main Offic e [address] [facility] [address], [place], [address], 11/06/2017 16:23:58 11/07/19 18 11/06/2017 urina lysis , dipst ick Bilirubin neg Not Available Main Off ice [address] [facility] [address], [place], [address], 11/06/2017 16:23:58 11/07/19 18 11/06/2017 urina lysis , dipst ick Glucose neg Not Available Main Offic e [address] [facility] [address], [place], [address], 11/06/2017 16:23:58 11/07/19 18 11/06/2017 urina lysis , dipst ick Appearance cloudy Not Available Main Of fice [address] [facility] [address], [place], [address], 11/06/2017 16:23:58 11/07/19 18 11/06/2017 urina lysis , dipst ick Color yellow Not Available Main Offic e [address] [facility] [address], [place], [address], 11/06/2017 16:23:58 01/13/20 18 01/12/2018 CBC w/ auto diff WBC 6.2 K/uL 3.8-10 .6 Not Available [facility] [address] [address], [place], [address], 01/13/2018 06:45:01 01/13/20 18 01/12/2018 CBC w/ auto diff RBC 4.29 M/uL 3.80-5 .20 Not Available [facility] [address] [place] [address], [place], [address], 01/13/2018 06:45:01 01/13/20 18 01/12/2018 CBC w/ auto diff hemoglobin 13.3 gm/dL 12.0-1 6.0 Not Available [facility] [address] [place] [address], [place], [address], 01/13/2018 06:45:01 01/13/20 18 01/12/2018 CBC w/ auto diff hematocrit 40.5 % 35.0-4 7.0 Not Available [facility] [address] [place] [address], [place], [address], 01/13/2018 06:45:01 01/13/20 18 01/12/2018 CBC w/ auto diff MCV 94 fL 80-100 Not Available [facility] [address] [place] [address], [place], [address], 01/13/2018 06:45:01 01/13/20 18 01/12/2018 CBC w/ auto diff MCH 31.0 pg 26.0-3 4.0 Not Available [facility] [address] [place] [address], [place], [address], 01/13/2018 06:45:01 01/13/20 18 01/12/2018 CBC w/ auto diff MCHC 32.8 g/dL 31.0-3 7.0 Not Available [facility] [address] [place] [address], [place], [address], 01/13/2018 06:45:01 01/13/20 18 01/12/2018 CBC w/ auto diff RDW 12.3 % 12.0-1 5.0 Not Available [facility] [address] [place] [address], [address], 01/13/2018 06:45:01 01/13/20 18 01/12/2018 CBC w/ auto diff MPV 11.4 fL 7.4-10 .4 high Not Available [facility] [address] [place] [address], [address], 01/13/2018 06:45:01 01/13/20 18 01/12/2018 CBC w/ auto diff platelet count 231 K/uL 130-40 0 Not Available [facility] [address] [place] [address], [address], 01/13/2018 06:45:01 01/13/20 18 01/12/2018 CBC w/ auto diff diff type Automa letty diff Not Available [facility] [address] [place] [address], [address], 01/13/2018 06:45:01 01/13/20 18 01/12/2018 CBC w/ auto diff abs neutrophils 4.2 K/uL 1.8-7. 7 Not Available [facility] [address] [place] [address], [address], 01/13/2018 06:45:01 01/13/20 18 01/12/2018 CBC w/ auto diff abs lymphocytes 1.6 K/uL 1.0-4. 8 Not Available [facility] [address] [place] [address], [address], 01/13/2018 06:45:01 01/13/20 18 01/12/2018 CBC w/ auto diff abs monocytes 0.4 K/uL 0.1-1. 0 Not Available [facility] [address] [place] [address], [address], 01/13/2018 06:45:01 01/13/20 18 01/12/2018 CBC w/ auto diff abs eosinophils 0.1 K/uL 0.0-0. 6 Not Available [facility] [address], [address], 01/13/2018 06:45:01 01/13/20 18 01/12/2018 CBC w/ auto diff abs basophils 0.0 K/uL 0.0-0. 3 Not Available [facility] [address], [address], 01/13/2018 06:45:01 01/13/20 18 01/12/2018 CBC w/ auto diff neutrophil 68 % 45-73 Not Available [facility] [address], [address], 01/13/2018 06:45:01 01/13/20 18 01/12/2018 CBC w/ auto diff lymphocyte 25 % 18-44 Not Available [facility] [address], [address], 01/13/2018 06:45:01 01/13/20 18 01/12/2018 CBC w/ auto diff monocyte 6 % 4-10 Not Available [facility] [address], [address], 01/13/2018 06:45:01 01/13/20 18 01/12/2018 CBC w/ auto diff eosinophil 1 % 0-4 Not Available [facility] [address] [address], [place], [address], 01/13/2018 06:45:01 01/13/20 18 01/12/2018 CBC w/ auto diff basophil 0 % 0-1 MDF med fusio n [address] [facility] [address] [facility] [address] [phone] Jaelyn coello MD Not Available [facility] [address] [address], [place], [address], 01/13/2018 06:45:01 01/13/20 18 01/12/2018 CMP, serum or plasm a glucose, fasting 85 mg/dL 70-99 Not Available Med Antonio rodriguez [address] [place] [address], [place], [address], 01/13/2018 06:55:03 01/13/20 18 01/12/2018 CMP, serum or plasm a BUN 19 mg/dL 9-23 Not Available Med [address], [address], 01/13/2018 06:55:03 01/13/20 18 01/12/2018 CMP, serum or plasm a creatinine 0.77 mg/dL 0.50-1 .20 Not Available [facility] [address] [place] [address], [address], 01/13/2018 06:55:03 01/13/20 18 01/12/2018 CMP, serum or plasm a sodium 141 mEq/L 132-14 6 Not Available [address], [address], 01/13/2018 06:55:03 01/13/20 18 01/12/2018 CMP, serum or plasm a potassium 4.2 mEq/L 3.5-5. 5 Not Available [address] [address], [place], [address], 01/13/2018 06:55:03 01/13/20 18 01/12/2018 CMP, serum or plasm a chloride 104 mEq/L 99-109 Not Available [facility] [address] [place] [address], [place], [address], 01/13/2018 06:55:03 01/13/20 18 01/12/2018 CMP, serum or plasm a CO2 29 mEq/L 22-33 Not Available [facility] [address] [place] [address], [address], 01/13/2018 06:55:03 01/13/20 18 01/12/2018 CMP, serum or plasm a anion gap 12.2 mEq/L 10-20 Not Available Med Fusi on [address] [place] [address], [place], [address], 01/13/2018 06:55:03 01/13/20 18 01/12/2018 CMP, serum or plasm a calcium 9.9 mg/dL 8.7-10 .7 Not Available [facility] [address] [address], [place], [address], 01/13/2018 06:55:03 01/13/20 18 01/12/2018 CMP, serum or plasm a albumin 5.1 g/dL 3.2-4. 8 high Not Available [facility] [address] [address], [place], [address], 01/13/2018 06:55:03 01/13/20 18 01/12/2018 CMP, serum or plasm a protein, total 7.1 g/dL 5.7-8. 2 Not Available Med [address], [address], 01/13/2018 06:55:03 01/13/20 18 01/12/2018 CMP, serum or plasm a bilirubin, total 0.4 mg/dL 0.3-1. 2 Not Available Med [address] [address] [address], [place], [address], 01/13/2018 06:55:03 01/13/20 18 01/12/2018 CMP, serum or plasm a ALT (SGPT) 44 U/L 10-49 Not Available Med [facility] [address] [address], [place], [address], 01/13/2018 06:55:03 01/13/20 18 01/12/2018 CMP, serum or plasm a AST (SGOT) 42 U/L 0-33 high Not Available Med [facility] [address] [address], [place], [address], 01/13/2018 06:55:03 01/13/20 18 01/12/2018 CMP, serum or plasm a alk phosphatase 74 U/L 45-129 Not Available [facility] [address] [address], [place], [address], 01/13/2018 06:55:03 01/13/20 18 01/12/2018 CMP, serum or plasm a BUN/creatini ne ratio 24.7 ratio 10-26 Not Available [facility] Antonio rodriguez [address] [place] [address], [place], [address], 01/13/2018 06:55:03 01/13/20 18 01/12/2018 CMP, serum or plasm a globulin calculated 2.0 g/dL 2.0-3. 8 Not Available [facility] [address] [place] [address], [place], [address], 01/13/2018 06:55:03 01/13/20 18 01/12/2018 CMP, serum or plasm a A/G ratio 2.6 ratio 0.9-2. 5 high Not Available [address] [address], [place], [address], 01/13/2018 06:55:03 01/13/20 18 01/12/2018 CMP, serum or plasm a eGFR aa >90 mL/mi n/1.7 3m2 >60 Not Available [address] [address], [place], [address], 01/13/2018 06:55:03 01/13/20 18 01/12/2018 CMP, serum or plasm a eGFR 83 mL/mi n/1.7 3m2 >60 eGFR Refer ence Range s: Kathy l: >90 mL/mi n/1.7 3m2 Moder ate Decre ase: 30-59 mL/mi n/1.7 3m2 Sever e Decre ase: 15-29 mL/mi n/1.7 3m2 Kidne y Failu re: <15 mL/mi n/1.7 3m2 Note: Estim ation of GFR using the MDRD equat ion is only valid for patie nts with an eGFR less than 60 mL/mi n/1.7 3m2. The repor t conta ins both eGFR for non-[place] f[place] n Ameri cans and eGFR AA for Afric an Ameri cans. MDF med fusio n [address] [place], [place] [address]w [address] [facility] [address] [phone] Jaelyn coello MD Not Available [facility] [address] [facility] 121, [place], [address], 01/13/2018 06:55:03 01/13/20 18 01/12/2018 lipid panel , serum cholesterol, total 159 mg/dL <200 The Natio nal Lipid Assoc iatio n and the Natio nal [employer] stero l Educa tion Progr am (NCEP ) have set the follo wing lipid panel guide lines for adult s ages 20 and up: Genoveva able: < 200 mg/dL Borde rline high: 200-2 39 mg/dL High: > or = 240 mg/dL Not Available [facility] [address] [address], [place], [address], 01/13/2018 06:59:44 01/13/20 18 01/12/2018 lipid panel , serum triglyceride 57 mg/dL <150 The Natio nal Lipid Assoc iatio n and the Natio nal [employer] stero l Educa tion Progr am (NCEP ) have set the follo wing lipid panel guide lines for adult s ages 20 and up: Kathy l: < 150 mg/dL Borde rline : 150 - 199 mg/dL High: 200 - 499 mg/dL Very High: > or = 500 mg/dL Not Available [facility] [address] [address], [place], [address], 01/13/2018 06:59:44 01/13/20 18 01/12/2018 lipid panel , serum HDL cholesterol 85 mg/dL >50 The Natio nal Lipid Assoc iatio n and the Natio nal [employer] stero l Educa tion Progr am (NCEP ) have set the follo wing lipid panel guide lines for adult s ages 20 and up: Male: > or = 40 mg/dL Femal e: > or = 50 mg/dL Not Available [facility] [address] [facility] 121, [place], [address], 01/13/2018 06:59:44 01/13/20 18 01/12/2018 lipid panel , serum LDL calculated 63 mg/dL <100 The Natio nal Lipid Assoc iatio n and the Natio nal [employer]di stero l Educa tion Progr am (NCEP ) have set the follo wing lipid panel guide lines for adult s ages 20 and up: Genoveva able: < 100 mg/dL Above Genoveva able: 100 - 129 mg/dL Borde rline high: 130 - 159 mg/dL High: 160 - 189 mg/dL Very High: > or = 190 mg/dL Not Available [facility] [address] [facility] 121, [place], [address], 01/13/2018 06:59:44 01/13/20 18 01/12/2018 lipid panel , serum ldlhdl 0.74 ratio Not Available [facility] [address] [facility] 121, [place], [address], 01/13/2018 06:59:44 01/13/20 18 01/12/2018 lipid panel , serum LDL/HDL risk See Note (Note ) Male Femal e Below [place] ge Risk 0.00- 2.28 0.00- 2.34 [place] Risk 2.29- 4.90 2.35- 4.12 Moder ate Risk 4.91- 7.12 4.13- 5.56 High Risk 7.13- 20.00 5.57- 20.00 Not Available [facility] [address] [facility] [address], [place], [address], 01/13/2018 06:59:44 01/13/20 18 01/12/2018 lipid panel , serum total chol/HDL ratio (calculat 1.9 ratio 0.0-5. 0 [facility]F med fus[facility] n [address] [facility] [address] [place] [address] [phone] Jaelyn coello MD Not Available [facility] [address] [facility] [address], [place], [address], 01/13/2018 06:59:44 01/13/20 18 01/12/2018 urina lysis compl ete, refle x cultu re urine color Yellow yellow Not Available [facility] [address] [address], [place], [address], 01/13/2018 07:05:03 01/13/20 18 01/12/2018 urina lysis compl ete, refle x cultu re urine clarity Clear clear Not Available [facility] [address] [place] [address], [place], [address], 01/13/2018 07:05:03 01/13/20 18 01/12/2018 urina lysis compl ete, refle x cultu re urine specific gravity 1.013 1.005- 1.030 Not Available [place] [address], [place], [address], 01/13/2018 07:05:03 01/13/20 18 01/12/2018 urina lysis compl ete, refle x cultu re urine pH 6.0 5.0-8. 5 Not Available [address] [address], [place], [address], 01/13/2018 07:05:03 01/13/20 18 01/12/2018 urina lysis compl ete, refle x cultu re urine glucose Negati ve mg/dL negati ve Not Available [address] [address], [place], [address], 01/13/2018 07:05:03 01/13/20 18 01/12/2018 urina lysis compl ete, refle x cultu re urine ketones Trace mg/dL negati ve abnormal Not Available [address] [address], [place], [address], 01/13/2018 07:05:03 01/13/20 18 01/12/2018 urina lysis compl ete, refle x cultu re urobilinogen 0.2 eu/dL 0.2-1. 0 Not Available [address] [address], [place], [address], 01/13/2018 07:05:03 01/13/20 18 01/12/2018 urina lysis compl ete, refle x cultu re urine bilirubin Negati ve negati ve Not Available [facility] [address] [facility] [address], [place], [address], 01/13/2018 07:05:03 01/13/20 18 01/12/2018 urina lysis compl ete, refle x cultu re urine blood Small negati ve abnormal Not Available [facility] [address] [facility] [address], [place], [address], 01/13/2018 07:05:03 01/13/20 18 01/12/2018 urina lysis compl ete, refle x cultu re urine protein Negati ve negati ve Not Available [facility] [address] [facility] [address], [place], [address], 01/13/2018 07:05:03 01/13/20 18 01/12/2018 urina lysis compl ete, refle x cultu re leukocyte esterase Negati ve negati ve Not Available [facility] [address] [address], [place], [address], 01/13/2018 07:05:03 01/13/20 18 01/12/2018 urina lysis compl ete, refle x cultu re urine nitrates Negati ve negati ve Not Available [facility] [address] [facility] [address], [place], [address], 01/13/2018 07:05:03 01/13/20 18 01/12/2018 urina lysis compl ete, refle x cultu re white cells <1 /hpf 0-4 Not Available [facility] [address] [facility] [address], [place], [address], 01/13/2018 07:05:03 01/13/20 18 01/12/2018 urina lysis compl ete, refle x cultu re red cells 1 /hpf 0-5 Not Available [facility] [address] [facility] [address], [place], [address], 01/13/2018 07:05:03 01/13/20 18 01/12/2018 urina lysis compl ete, refle x cultu re squamous epithelial cells <1 /hpf 0-2 Not Available [facility] Antonio Banegas[address] [place] [address], [place], [address], 01/13/2018 07:05:03 01/13/20 18 01/12/2018 urina lysis compl ete, refle x cultu re urine bacteria Negati ve negati ve Not Available [address] [address], [place], [address], 01/13/2018 07:05:03 01/13/20 18 01/12/2018 urina lysis compl ete, refle x cultu re cast <1 /lpf Not Available [address], [address], 01/13/2018 07:05:03 01/13/20 18 01/12/2018 urina lysis compl ete, refle x cultu re reflex to culture Result s Below CULTU RE NOT INDIC ATED MDF [facility] elmoio n [address] [place] [address] [address] [facility] [address] [phone] Jaelyn coello MD Not Available [address] [address], [place], [address], 01/13/2018 07:05:03 10/22/19 19 10/21/2018 CMP, serum or plasm a glucose, fasting 88 mg/dL 70-99 Not Available [facility] Antonio rodriguez [address] [place] [address], [address], 10/22/2018 08:23:10 10/22/19 19 10/21/2018 CMP, serum or plasm a BUN 18 mg/dL 9-23 Not Available [address] [address], [place], [address], 10/22/2018 08:23:10 10/22/19 19 10/21/2018 CMP, serum or plasm a creatinine 0.75 mg/dL 0.50-1 .20 Not Available [facility] [address] [address], [place], [address], 10/22/2018 08:23:10 10/22/19 19 10/21/2018 CMP, serum or plasm a sodium 141 mEq/L 132-14 6 Not Available [facility] [address] [address], [place], [address], 10/22/2018 08:23:10 10/22/19 19 10/21/2018 CMP, serum or plasm a potassium 4.6 mEq/L 3.5-5. 5 Not Available [facility] [address] [place] [address], [place], [address], 10/22/2018 08:23:10 10/22/1910/21/2018 CMP, serum or plasm a chloride 104 mEq/L 99-109 Not Available [facility] [address] [place] [address], [place], [address], 10/22/2018 08:23:10 10/22/1910/21/2018 CMP, serum or plasm a CO2 32 mEq/L 22-33 Not Available [facility] [address] [place] [address], [address], 10/22/2018 08:23:10 10/22/1910/21/2018 CMP, serum or plasm a anion gap 9.6 mEq/L 10-20 low Not Available [facility] [address] [place] [address], [place], [address], 10/22/2018 08:23:10 10/22/1910/21/2018 CMP, serum or plasm a calcium 10.4 mg/dL 8.7-10 .7 Not Available [facility] S [address], [address], 10/22/2018 08:23:10 10/22/19 19 10/21/2018 CMP, serum or plasm a albumin 5.3 g/dL 3.2-4. 8 high Not Available [facility] [address] [place] [address], [place], [address], 10/22/2018 08:23:10 10/22/19 19 10/21/2018 CMP, serum or plasm a protein, total 7.3 g/dL 5.7-8. 2 Not Available [facility] [address] [facility] 121, [place], [address], 10/22/2018 08:23:10 10/22/19 19 10/21/2018 CMP, serum or plasm a bilirubin, total 0.5 mg/dL 0.3-1. 2 Not Available [facility] [address] [facility] [address], [place], [address], 10/22/2018 08:23:10 10/22/19 19 10/21/2018 CMP, serum or plasm a ALT (SGPT) 34 U/L 10-49 Not Available [facility] [address] [address], [place], [address], 10/22/2018 08:23:10 10/22/1910/21/2018 CMP, serum or plasm a AST (SGOT) 40 U/L 0-33 high Not Available [facility] [address] [place] [address], [place], [address], 10/22/2018 08:23:10 10/22/1910/21/2018 CMP, serum or plasm a alk phosphatase 66 U/L 45-129 Not Available [facility] [address] [place] [address], [place], [address], 10/22/2018 08:23:10 10/22/1910/21/2018 CMP, serum or plasm a BUN/creatini ne ratio 24.0 ratio 10-26 Not Available Med Antonio Baneg[address] [place] [address], [place], [address], 10/22/2018 08:23:10 10/22/1910/21/2018 CMP, serum or plasm a globulin calculated 2.0 g/dL 2.0-3. 8 Not Available [facility] [address] [place] [address], [place], [address], 10/22/2018 08:23:10 10/22/19 19 10/21/2018 CMP, serum or plasm a A/G ratio 2.7 ratio 0.9-2. 5 high Not Available [facility] [address] [facility] [address], [place], [address], 10/22/2018 08:23:10 10/22/19 19 10/21/2018 CMP, serum or plasm a eGFR aa >90 mL/mi n/1.7 3m2 >60 Not Available [facility] [address] [facility] [address], [place], [address], 10/22/2018 08:23:10 10/22/19 19 10/21/2018 CMP, serum or plasm a eGFR 85 mL/mi n/1.7 3m2 >60 eGFR Refer ence Range s: Kathy l: >90 mL/mi n/1.7 3m2 Moder ate Decre ase: 30-59 mL/mi n/1.7 3m2 Sever e Decre ase: 15-29 mL/mi n/1.7 3m2 Kidne y Failu re: <15 mL/mi n/1.7 3m2 Note: Estim ation of GFR using the MDRD equat ion is only valid for patie nts with an eGFR less than 60 mL/mi n/1.7 3m2. The repor t conta ins both eGFR for non-[place] f[place] n Ameri cans and eGFR AA for [place] an Ameri cans. VENANCIO med [facility] n [address] [facility] [address] [facility] [address] [phone] Jaelyn coello MD Not Available [facility] [address] [facility] [address], [place], [address], 10/22/2018 08:23:10 10/22/19 19 10/21/2018 lipid panel , serum cholesterol, total 158 mg/dL <200 The [employer] n and the Natio nal [employer] (NCEP ) have set the follo wing lipid panel guide lines for adult s ages 20 and up: Genoveav able: < 200 mg/dL Borde rline high: 200-2 39 mg/dL High: > or = 240 mg/dL Not Available [facility] [address] [facility], [place], [address], 10/22/2018 08:23:44 10/22/1910/21/2018 lipid panel , serum triglyceride 61 mg/dL <150 The [employer] n and the [employer]io n[employer] am (NCEP ) have set the follo wing lipid panel guide lines for adult s ages 20 and up: Kathy l: < 150 mg/dL Borde rline : 150 - 199 mg/dL High: 200 - 499 mg/dL Very High: > or = 500 mg/dL Not Available [facility] [address] [facility] [address], [place], [address], 10/22/2018 08:23:44 10/22/1910/21/2018 lipid panel , serum HDL cholesterol 81 mg/dL >50 The [employer] n[employer] n and the [employer]io n[employer] am (NCEP ) have set the follo wing lipid panel guide lines for adult s ages 20 and up: Male: > or = 40 mg/dL Femal e: > or = 50 mg/dL Not Available [facility] [address] [facility] [address], [place], [address], 10/22/2018 08:23:44 10/22/1910/21/2018 lipid panel , serum LDL calculated 65 mg/dL <100 The [employer] n and the [employer]io n[employer] am (NCEP ) have set the follo wing lipid panel guide lines for adult s ages 20 and up: Genoveva able: < 100 mg/dL Above Genoveva able: 100 - 129 mg/dL Borde rline high: 130 - 159 mg/dL High: 160 - 189 mg/dL Very High: > or = 190 mg/dL Not Available [facility] [address] [facility] [address], [place], [address], 10/22/2018 08:23:44 10/22/19 19 10/21/2018 lipid panel , serum ldlhdl 0.80 ratio Not Available [facility] [address] [facility] [address], [place], [address], 10/22/2018 08:23:44 10/22/19 19 10/21/2018 lipid panel , serum LDL/HDL risk See Note (Note ) Male Femal e Below [place] ge Risk 0.00- 2.28 0.00- 2.34 [place] ge Risk 2.29- 4.90 2.35- 4.12 Moder ate Risk 4.91- 7.12 4.13- 5.56 High Risk 7.13- 20.00 5.57- 20.00 Not Available [facility] [address] [facility] [address], [place], [address], 10/22/2018 08:23:44 10/22/19 19 10/21/2018 lipid panel , serum total chol/HDL ratio (calculat 2.0 ratio 0.0-5. 0 MDF med [facility] n [address] [facility] [address] [facility] [address] [phone] Jaelyn coello MD Not Available [facility] [address] [facility] [address], [place], [address], 10/22/2018 08:23:44 Result Notes None recorded. Problems Name Problem SNOMED Code Status Onset Date Resolution Date Notes Provider Name and Address Organization Details Recorded Time Gastroesophage al reflux disease 372082140 Active 2016 So tee [facility] 7 16:24:44 Constipation 75087509 Active 2016 So Nicolette tee [facility] 7 16:24:50 Problem Notes None recorded. Procedures Surgical History Date Name Laterality Status Provider Name and Address Organization Details Recorded Time 9 Pulse [facility] 05/11/2018 17:20:06 8 Pulse Oximetry completed [facility] 01/12/2018 10:03:32 8 Pulse Oximetry completed Cresencio Infanteo [facility] 11/06/2017 16:27:33 8 Pulse Oximetry completed [facility] 08/17/2017 09:04:34 8 Pulse Oximetry completed [facility] 05/26/2017 17:12:11 8 Pulse Oximetry completed [facility] 03/05/2017 10:23:23 7 Date of Last Pap Smear completed [facility] 05/11/2018 17:10:57 7 Pulse Oximetry completed [facility] 02/05/2017 16:43:20 7 Pulse Oximetry completed [facility] 11/24/2016 16:23:31 7 Most Recent Mammogram completed [facility] 11/24/2016 16:26:25 Breast Biopsy completed [facility] 11/24/2016 16:25:42 Breast Biopsy completed [facility] 11/24/2016 16:25:43 Breast Biopsy completed [facility] 11/24/2016 16:25:43 Imaging Results None recorded. Procedure Notes None recorded. Medical Equipment None Reported. Allergies Allergen ID Allergen Name Allergen Category Reaction Reaction Severity Criticality Documentation Date Start Date Code Code System Note Provider Name and Address Organization Details Recorded Time 792 codeine medicatio n Not available Not available Not available 11/24/2016 2670 RxNorm [facility] 7 16:24:04 Medications Name Sig Start Date Stop Date Status Note LastModified by Organization Details LastModified Time atorvastatin 20 mg tablet Take 1 tablet every day by oral route. 10/18 completed Not Available Not Available Not Available azithromycin 250 mg tablet TAKE 2 TABLETS (500 MG) BY ORAL ROUTE ONCE DAILY FOR 1 DAY THEN 1 TABLET (250 MG) BY ORAL ROUTE ONCE DAILY FOR 4 DAYS 10/18 completed Not Available Not Available Not Available minocycline 100 mg capsule 10/18 completed Not Available Not Available Not Available famotidine 40 mg tablet 10/18 completed Not Available Not Available Not Available clobetasol 0.05 % topical gel 10/18 completed Not Available Not Available Not Available tacrolimus 0.1 % topical ointment 10/18 completed Not Available Not Available Not Available metronidazol e 0.75 % topical cream 10/18 completed Not Available Not Available Not Available indomethacin 50 mg capsule Take 1 capsule 3 times a day by oral route as needed. active Not Available Not Available No t Available omeprazole 20 mg capsule,mago yed release TAKE 1 CAPSULE DAILY active Not Available Not Available No t Available hydrocortiso ne 2.5 % topical cream active Not Available Not Available Not Available estradiol 0.5 mg tablet active Not Available Not Available Not Available progesterone micronized 100 mg capsule active Not Available Not Available Not Available rosuvastatin 20 mg tablet TAKE 1 TABLET DAILY active Not Available Not Available No t Available nitrofuranto in monohydrate/ macrocrystal s 100 mg capsule Take 1 capsule every 12 hours by oral route for 5 days. 10/18 completed Not Available Not Available Not Available tizanidine 6 mg capsule Take 1 capsule every 6-8 hours by oral route as needed. 10/18 completed Not Available Not Available Not Available Solodyn 55 mg tablet,exten ded release Take 1 tablet every day by oral route. 10/18 completed Not Available Not Available Not Available Linzess 145 mcg capsule Take 1 capsule twice a day by oral route. 10/18 completed Not Available Not Available Not Available Vitals Date Recorded Body height Heart rate Body temperature Body mass index (BMI) Body weight Oxygen saturation Oxygen saturation in Arterial blood by Pulse oximetry Systolic blood pressure Diastolic blood pressure Provider Name and Address Organization Details Last Updated DateTime 9 162.56 cm 73 /min 97.7 [degF] 19.4 kg/m2 96184.9 4 g 98 % 98 % 110 mm[Hg] 72 mm[Hg] Dolly Leonard [facility] 9 18:57:41 Date Recorded Body height Heart rate Body temperature Body mass index (BMI) Body weight Oxygen saturation Oxygen saturation in Arterial blood by Pulse oximetry Systolic blood pressure Diastolic blood pressure Provider Name and Address Organization Details Last Updated DateTime 8 162.56 cm 96 /min 98.7 [degF] 20.1 kg/m2 68875.3 1 g 98 % 98 % 122 mm[Hg] 78 mm[Hg] [facility] 8 09:06:18 Date Recorded Body height Heart rate Body temperature Body mass index (BMI) Body weight Oxygen saturation Oxygen saturation in Arterial blood by Pulse oximetry Systolic blood pressure Diastolic blood pressure Provider Name and Address Organization Details Last Updated DateTime 8 162.56 cm 56 /min 98.1 [degF] 19.5 kg/m2 12126.8 1 g 98 % 98 % 124 mm[Hg] 80 mm[Hg] Cresencio Infanteo [facility] 8 16:24:43 Date Recorded Body height Body mass index (BMI) Body weight Oxygen saturation Oxygen saturation in Arterial blood by Pulse oximetry Heart rate Body temperature Systolic blood pressure Diastolic blood pressure Provider Name and Address Organization Details Last Updated DateTime 8 162.56 cm 19.7 kg/m2 16851.1 2 g 99 % 99 % 82 /min 98.7 [degF] 102 mm[Hg] 70 mm[Hg] [facility] 8 10:04:17 Date Recorded Body height Body mass index (BMI) Body weight Body temperature Heart rate Oxygen saturation Oxygen saturation in Arterial blood by Pulse oximetry Systolic blood pressure Diastolic blood pressure Provider Name and Address Organization Details Last Updated DateTime 9 162.56 cm 20.1 kg/m2 22231.3 1 g 98.4 [degF] 78 /min 98 % 98 % 110 mm[Hg] 76 mm[Hg] [facility] 9 17:22:41 Social History Question Answer Notes LastModified by Organizat ion Details LastModified Time Tobacco Smoking Status Never Smoker Not Available [facility] 12/20/2019 03:15:15 What Is Your Level Of Alcohol Consumption? Moderate [id number] Information not available 12/20/2019 What Is Your Level Of Caffeine Consumption? Moderate [id number] Information not available 12/20/2019 What Was The Date Of Your Most Recent Tobacco Screening? 05/11/2018 [id number] Information not available 12/20/2019 Sex: Unknown Functional Status None recorded. Mental Status None recorded. Family History Relationship Description Onset Age of this Age Resolved Age Notes LastModified by Organization Details LastModified Time Mother Family history of malignant neoplasm breast [email or web address] Not available 2018 18:57:56 Father Heart disease [email or web address] Not available 2016 16:25:18 Medical History Condition Response Coronary Artery Disease N Gout N Other Y Kidney Stones N Blood Diseases N Hyperthyroidism N Breast Cancer N Abuse/Domestic Violence (or history of) N Lung Disease N COPD N Depression N Hypothyroidism N Defects or Inherited Disease N Difficulty Swallowing N Anesthesia Complications N Headaches/Migraines N Meniere's disease N Anxiety Disorder N Breast Problem (or history of) N Muscle, Joint, or Bone Problems N Obesity N Vision or Eye Problems N Arthritis N Polyps N Infertility N Varicosities N Stroke N Endometriosis N Bladder or Kidney Problems N High Cholesterol Y Liver Disease N Fibromyalgia N Kidney Disease N Allergies/Hayfever N Ear or Hearing Problems N Cancer (or history of) N Thyroid Problems N GI Problems N ADD/ADHD N Skin Problems N Eating Disorder N Anemia N MRSA exposure N Constipation Y Mental Illness N Ovarian Cancer (or history of) N Diabetes N Seizures/Epilepsy N Tuberculosis N AIDS/HIV N Congestive Heart Failure (CHF) N Eczema N Diverticulitis N Asthma N Reflux/GERD Y Hepatitis N Heart Disease N Pulmonary Embolism N Hypertension N Chronic Ear Infections N Osteoporosis N Autism Spectrum Disorder (ASD) N Thrombophilias N Gynecological History Statement/Question Response If Post Menopausal, Age at Menopause 47 Date of LMP 09/10/2011 Date of Last Pap Smear 02/18/2017 Current Control Method None Most Recent Mammogram 09/19/2016 Age at Menarche 12 Obstetrics History GPAL:G 2 P 2 0 0 2 Type Value Full Term 2 Living 2 Total 2 Past Encounters Encounter ID Performer Location Encounter Start Date Encounter Closed Date Diagnosis/Indication Diagnosis SNOMED-CT Code Diagnosis ICD10 Code Diagnosis Note [id number] Adal Gutierrez MD Main Office [address] [address] 11/24/2016 16:17:21 11/24/2016 17:18:14 Chronic constipation 695592680 K59.09 Discussed with patient the current diagnosis, prognosis, and treatment plan including risks, benefits, alternativ es, contraindi cations of any medication (s). All questions answered. Patient [facility]. Gastroesop hageal reflux disease 626049066 K21.9 Continue current medication . Discussed with patient the current diagnosis, prognosis, and treatment plan including risks, benefits, alternativ es, contraindi cations of any medication (s). All questions answered. Patient [facility]. Hyperlipid emia screening 674085176 Z13.220 [id number] Adal Gutierrez MD Main Office [id number] [place] [id number] 02/05/2017 16:35:02 02/05/2017 17:55:41 Acne [id number] L70.9 Patient requesting a refill on Solodyn. Received a trial from the derm and has noted an improvment . Discussed with patient the current diagnosis, prognosis, and treatment plan including risks, benefits, alternativ es, contraindi cations of any medication (s). All questions answered. Patient [facility]. Hyperlipidemia 43497768 E78.5 Will start on a statin. Discussed appropriat e dietary choices and intensifyi ng an exercise regimen as tolerated. Will follow-up in 6 weeks after repeat labs or sooner for any symptoms, adverse effects, questions, or concerns. Discussed with patient the current diagnosis, prognosis, and treatment plan including risks, benefits, alternativ es, contraindi cations of any medication (s). All questions answered. Patient [facility] understand ing. [id number] Adal Gutierrez MD Main Office [address] [id number] 03/05/2017 10:15:42 03/05/2017 15:06:03 Acute sinusitis 71887312 J01.90 Patient presented with symptoms c/w Acute Sinusitis. Will start on antibiotic s. Advised to drink plenty of fluids, run a cool-mist humidifier in room at night, gargle salt water prn for sore throat, get plenty of rest, avoid over-exert ion, and reduce exposure to irritants such as smoke, cold, dry air, and dust. Also recommend as needed symptomati c treatment with OTC medication s such as acetaminop hen or ibuprofen as directed to reduce fever >100.3 deg F and/or body aches, antihistam natanael, decongesta nt as tolerated, nasal sprays, antitussiv es. Discussed with patient the current diagnosis, prognosis, and treatment plan including risks, benefits, alternativ es, contraindi cations of any medication (s). RTC if no improvemen t within 2-3 days or sooner for acutely worsening or new symptoms. All questions answered. Patient [facility] understand [facility]. [id number] Adal Gutierrez MD Main Office [address] [place] [address] 6 05/26/2017 17:08:02 05/26/2017 17:52:21 Hyperlipidemia 00900198 E78.5 Cannot tolerate lipitor. Will try a trial of Crestor. Discussed appropriat e dietary choices and intensifyi ng an exercise regimen as tolerated. Will follow-up in 6 weeks for repeat labs or sooner for any symptoms, adverse effects, questions, or concerns. Discussed with patient the current diagnosis, prognosis, and treatment plan including risks, benefits, alternativ es, contraindi cations of any medication (s). All questions answered. Patient [facility]. [id number] Adal Gutierrez MD Main Office [address] [place] [address] 6 08/17/2017 08:57:30 08/17/2017 09:47:23 Hyperlipidemia 00689617 E78.5 Tolerating Crestor well. Continue with appropriat e dietary choices and intensifyi ng an exercise regimen as tolerated. Will follow-up in 6 months for repeat labs or sooner for any symptoms, adverse effects, questions, or concerns. Discussed with patient the current diagnosis, prognosis, and treatment plan including risks, benefits, alternativ es, contraindi cations of any medication (s). All questions answered. Patient [facility] understand [facility]. [id number] Adal Gutierrez MD Main Office [address] [place] [address] 6 11/06/2017 16:13:37 11/06/2017 16:53:25 Urinary tract infectious disease 54784565 N39.0 Patient presents with symptoms of UTI. Results of dipstick were {{positive * negative }} for UTI. Advised to increasing clear fluids, Tylenol for pain and/or fever >100.3. Discussed preventati ve measures such as always wiping front-to-b ack, not holding urine, and urinating immediatel y after intercours e. Cranberry juice has been shown to improve UTI symptoms in some patients. Discussed with patient the diagnosis, prognosis as well as risks, benefits, alternativ es, and contraindi cations of prescribed medication . Patient encouraged to follow up within 2-3 days if not improving or sooner for new or acutely worsening symptoms. [id number] Adal Gutierrez MD Main Office [address] [place] [phone] 01/12/2018 09:52:45 01/12/2018 10:31:25 Adult health examination [id number] Z00.00 Discussed age-based screening and preventati ve care recommenda tions. Pending fasting labs. [id number] Adal Gutierrez MD Main Office [id number] [place] [id number] 05/11/2018 17:06:39 05/11/2018 17:50:57 Low back strain [id number] S39.012A Patient advised on trying trial of conservati ve measures such as rest, ice/heat, stretches, massage, NSAIDs, or prn muscle relaxants. Monitor changes in symptoms such as numbness, tingling or weakness in legs, changes in bowel or bladder habits or worsening back pain. Proper ergonomics discussed. Discussed with patient the current diagnosis, prognosis, and treatment plan including risks, benefits, alternativ es, contraindi cations of any medication (s). All questions answered. Patient demonstrat ed understand ing. Consider referral to physical therapy if needed. Patient will call if symptoms worsen or if pain persists greater than 1-2 weeks. [id number] Adal Gutierrez MD Main Office [address] [address] 10/18/2018 18:48:22 10/19/2018 14:22:48 Hyperlipidemia [id number] E78.5 Will continue statin. Discussed appropriat e dietary choices and intensifyi ng an exercise regimen as tolerated. Will follow-up after repeat labs if uncontroll ed or sooner for any symptoms, adverse effects, questions, or concerns. Otherwise follow-up at 6 month intervals. Discussed with patient the current diagnosis, prognosis, and treatment plan including risks, benefits, alternativ es, contraindi cations of any medication (s). All questions answered. Screening mammography 24 [id number] Z12.31 last mammo 02/2018 Screening for malignant neoplasm of colon [id number] Z12.11 last colonoscop y 3 yrs ago and some benign polyps.... repeat in 5yrs Depression screening 171 [id number] Z13.31 Screen for depression with PHQ-2/PHQ- 9 with a NEGATIVE result. Score 0 Health Concerns Section Related Observation LastModified by Organization Detai ls LastModified Time None Recorded Concern Status LastModified by Organization Details LastModified Time None Recorded Advance Directives Directive None Recorded Payers Encounter Date Sequence Insurance Name Policy Number Policy Caldera Covered Member ID Caldera Member ID Guarantor Name 08/17/2017 1 [facility] [id number] Jenna Jenkins [id number] Jenna Jenkins 11/06/2017 1 [facility] [id number] Jenna Jenkins [id number] Jenna Jenkins 01/12/2018 1 [facility] [id number] Jenna Jenkins [id number] Jenna Jenkins 05/11/2018 1 [facility] [id number] Jenna Jenkins [id number] Jenna Jenkins 10/18/2018 1 [facility] [id number] Jenna Jenkins [id number] Jenna Jenkins Notes Date Note Type Note Provider Name and Address Organization Details Recorded Time 8 text/html HyperlipidemiaReported bypatient.Type of hyperlipidemia:hypercholest erolemia Duration:chronic Control:not at goal Current Therapy:currently taking: (rosuvastatin 20mg); last cholesterol level: 244 date:; last LDL level: 150 date:; last triglyceride level: 88 date:; last HDL level: 76 date: Compliance:noncompliant with diet;does not exerciseNotes:Concomitant Chronic Conditions: n/aSwitched from Lipitor to Crestor due to muscle aches on Lipitor. Patient reports [place] [address] [address], [place], [phone] [place] [address] 08/17/2017 09:15:23 8 text/html DysuriaReported bypatient.Quality:burning;p ressure;pain Severity:worsening; severe Timing:worse Context:no prior history of STDs; no known exposure to STD Modifying Factors:nothing gives relief Associated Symptoms:no fever; no blisters on genitals; no rash on genitals; no hesitancy; no blood in the urine;flank pain; urgency, frequencyNotes:Pt presents with UTI symptoms that started yesterday. PT states she has flank pain and has a hard time emptying her bladder completely. Pt has not taken any OTC meds for it. Pt did state it has gotten a little better due to her drinking more water. Pt denies any STI/[place] [address], [phone] [place] [address] 11/06/2017 16:52:08 8 text/html Annual WellnessReported bypatient.Diet and Nutrition:healthy diet Fracture Risk:no history of fractures Physical Activity:recent increase in physical activity; good physical condition Additional Lifestyle Factors:no tobacco use; drinks alcohol (mild-moderate) Depression Risk:never feels sad, empty, or tearful; no loss of interest in activities; no significant changes in weight; no sleep disturbances or insomnia; no agitation; no loss of energy; no feelings of worthlessness or guilt; no thoughts of suicide; no history of depression; no history of mood disorders Hearing:no loss of hearing Vision:no vision problemsNotes:LAST PHYSICAL: 2017LAST EKG: N/ALAST COLONOSCOPY: 2014LAST VISION SCREEN: 2017SELF-BREAST EXAMS: NOLMP: MENOPAUSELAST PAP: 2017H/O ABNL PAPS: NOLAST MAMMO: 2017H/O ABNL MAMMO: YESSEXUALLY ACTIVE: YESHISTORY OF STI: NOPREGNANCY HISTORY: [id number] MEDICAL HISTORY: constipation, HLD, GERDPATIENT CONCERNS: [place] [address], [address], [facility] 01/12/2018 10:25:13 9 text/html Back PainReported bypatient.Location:lumbar;p ain radiating to the buttocks(left) Quality:dull Severity:worsening;moderate (5-7) Duration:acute Onset/Timing:recurrent episode Alleviating Factors:relieved by lying down Aggravating Factors:movement/positionin g; sitting Associated Symptoms:no fever; no weak limbs; no numbness of the legs/feet; no tingling; no incontinence; no shortness of breath; no unintentional weight loss; no chills; no night sweats; no gait instability; no bowel/bladder symptoms; no recent increase in stress Previous Injury:no prior injury to back; no prior malignancy Prior Imaging:[place] [address], [id number] 05/11/2018 17:50:45 9 text/html HyperlipidemiaReported bypatient.Duration:chronic Prior Tests:highest cholesterol level: 159 date: (01-12-2018); highest LDL level: 63 date:; highest triglyceride level: 57 date:; lowest HDL level: 85 date: Control:usually well controlled Current Therapy:currently taking: (Rosuvastatin 20mg tabs) Compliance:compliantNotes:C urrent medication: Rosuvastatin 20mg tabs - 1 tab po qdpatient doing well on current regimen and is requesting [place]. [place] [address], [address], [facility] 10/19/2018 12:53:47 OBGyn Episode No OBEpisode recorded.
--- OUTSIDE RECORDS SUMMARY | 2024-04-17 11:17 | XMS_ITS | Clinical Summary ---
Author Organization [facility] Address [address] [place] [address] Care Team Providers Care Citrus Picker Name Role Phone Nataly King MD Unavailable [phone] Cierra Elaine NP Unavailable [phone] Cierra Elaine NP Primary Care Provider [phone] Allergies Active Allergy Reactions Criticality Noted Date Comments Codeine Nausea And Vomiting,Vomiting,Unknow n Low 01/22/2015 Other reaction(s): Unknown, Unknown Medications zinc citrate-phytase 25-500 mg capsule 09/24/2020 Active rosuvastatin (CRESTOR) 20 mg tablet Take 1 tablet (20 mg total) by mouth daily Active omeprazole (PriLOSEC) 20 mg capsule Take by mouth daily Active cholecalciferol (VITAMIN D-3) 1,000 unit capsule 05/24/2021 Active aspirin 81 mg enteric coated tablet Take 1 tablet (81 mg total) by mouth Active ascorbic acid (VITAMIN C) 1,000 mg tablet Take 1 tablet (1,000 mg total) by mouth daily Active diphenhydrAMINE (BENADRYL) 50 mg capsule Take 1 capsule (50 mg total) by mouth every 6 (six) hours as needed for itching Active cyanocobalamin (Vitamin B-12) 1,000 mcg tabletIndicatio ns:Prevention of Vitamin B12 Deficiency Take 1 tablet (1,000 mcg total) by mouth daily Active montelukast (SINGULAIR) 10 mg tablet Take 1 tablet (10 mg total) by mouth nightly Active tamoxifen (NOLVADEX) 10 mg tabletIndicatio ns:Prophylactic use of tamoxifen TAKE 2 TABLETS BY MOUTH EVERY DAY 180 tablet 3 12/07/2023 Active Active Problems Problem Noted Date Diagnosed Date Inconclusive mammogram due to dense breasts 08/2023 Prophylactic use of tamoxifen 09/30/2023 Encounter for monitoring tamoxifen therapy 09/29 Family history of breast cancer 12/31/2022 Extremely dense tissue of both breasts on mammog osvaldo 12/31/2022 Encounter for screening mammogram for breast can cer 12/31/2022 Breast cancer screening, high risk patient 12/31 Surgical History Surgery Date Site/Laterality Comments BREAST BIOPSY 02/23/2007 - 02/23/2008 Right BREAST BIOPSY 02/23/1999 - 02/23/2000 Left BREAST BIOPSY 02/23/1991 - 02/23/1992 Right Medical History Medical History Date Comments Anemia Arthritis due to other bacteria, vertebrae (HCC) Bronchitis Depression Hypercholesteremia Family History Medical History Relation Name Comments Throat cancer Brother Colon cancer Maternal Grandmother Breast cancer Mother at 90 due to dementia Relation Name Status Comments Brother Father Maternal Grandmother Mother Social History Tobacco Use Types Packs/Day Years Used Date Smoking Tobacco: Never Passive Smoke Exposure: Never Smokeless Tobacco: Never Tobacco Cessation:Counseling Given: Not Answered AUDIT-C Answer Date Recorded Q1: How often do you have a drink containing alcohol? Never 12/31/2022 Q2: How many drinks containi ng alcohol do you have on a typical day when you are drinking? Patient does not drink Q3: How often do you have si x or more drinks on one occasion? Never 12/31/2022 Personal Safety Answer Date Recorded Getting School Help Needed Not on file 03/31 Comments No Sex and Gender Information Value Date Recorded Sex Assigned at Not on file Legal Sex Female 7:52 PM ENVIRONMENTAL SERVICES TECHNICIAN Gender Identity Not on file Sexual Orientation Not on file Obstetrics History Para Term AB IAB SAB Ectopic Multiple Livin g Live Births 2 Date Outcome GA Total Labor Labor/2nd/3rd Weight Sex Type Anes PTL Jeannie A1 A5 Name Clin Last Filed Vital Signs Vital Sign Reading Time Taken Comments Blood Pressure 133/71 09/30/2023 1:46 PM CDT Pulse 64 09/30/2023 1:46 PM CDT Temperature 37 C (98.6 F) 09/30/2023 1:46 PM CDT Respiratory Rate 18 09/30/2023 1:46 PM CDT Oxygen Saturation 100% 09/30/2023 1:46 PM CDT Inhaled Oxygen Concentration - - Weight 53.5 kg (118 lb) 09/30/2023 1:46 PM CDT Height 161.3 cm (5' 3.5 ) 12/31/2022 9:56 AM ENVIRONMENTAL SERVICES TECHNICIAN no shoe Body Mass Index 20.57 12/31/2022 9:56 AM ENVIRONMENTAL SERVICES TECHNICIAN Plan of Treatment Health Maintenance Due Date Last Done Comments Cervical Cancer Screening 1965 Colon Cancer Screening-Colonoscopy 1965 Depression Screening 1965 Hepatitis C Screening 1965 Hepatitis B Screening 02/06/1982 Regular Well Visit/Exam 18-64 02/06/1982 Pneumococcal vaccine <65 (1 of 2 - PCV) 02/06/1983 Covid-19 Vaccine (3 - Pfizer risk series) 01/07/2021 12/10/2020, 11/19/2020 Influenza Vaccine (#1) 2023 , 11/18/2019, 11/18/2019, Additional history exists Breast Cancer Screening-Mammogram 09/29/2024 09/30/2023, 06/28/2021, 06/28/2021, Additional history exists DTaP/Tdap/Td Vaccine (2 - Td or Tdap) 11/19/2028 11/19/2018 Zoster Vaccine Completed 02/29/2020, 11/18/2019 Procedures Procedure Name Priority Date/Time Associated Diagnosis Comments SCREENING MAMMOGRAM BILATERAL W TE Schedule Routine, Read Routine (OP Routine) 09/30/2023 12:53 PM CDT Encounter for screening mammogram for breast cancer Breast cancer screening by mammogram from Last 3 Months or Most Recently Relevant to Health Maintenance Results * Screening Mammogram Bilateral W Te (09/30/2023 12:53 PM CDT) Anatomical Region Laterality Modality Breast Bilateral Mammography Impressions 09/30/2023 1:11 PM CDT BI-RADS ATLAS category (overall): 1 - Negative There is no mammographic evidence of malignancy. A 1 year screening mammogram is recommended. The patient has been or will be contacted. We recommend annual screening mammography for women at average risk of breast cancer beginning at age 40, based on guidelines of the [employer] (ACR Practice Parameter for the Performance of Screening and Diagnostic Mammography) and [employer]. For women with and elevated risk of breast cancer, please refer to the ACR Practice Parameter for specific screening recommendations. The patient will be entered into a reminder system with a target due date of 1 year for her next screening exam. Narrative 09/30/2023 1:11 PM CDT Screening Mammogram Bilateral W Te: 09/30/23 The study was acquired using full field digital technology and interpreted from soft copy. 2D digital mammographic views, as well as 3D digital tomosynthesis were performed in the CC and MLO projections. CLINICAL: Encounter for screening mammogram for breast cancer Breast cancer screening by mammogram. No relevant medical history has been documented for this patient. History of breast cancer in Mother. COMPARISONS: 04/13/2023 MRI Breast Bilateral W WO Contrast 09/27/2022 Breast Imaging Screening Outside Reference 06/28/2021 SCREENING MAMMOGRAM BILATERAL W TE 07/18/2020 DIAGNOSTIC MAMMOGRAM LEFT W TE 10/20/2016 SCREENING MAMMOGRAM 2D BILATERAL BREAST TISSUE: The breasts are extremely dense, which lowers the sensitivity of mammography. FINDINGS: There is no new suspicious finding in either breast on mammogram. Nataly King MD IMG MAMMO PROCEDURES Final Result from Last 3 Months or Most Recently Relevant to Health Maintenance Insurance [facility] PLUS [facility] PL[facility] Care Teams Citrus Picker Relationship Specialty Start Date End Date Cierra Elaine NP [address] [place] [address] [address] [place] [place] [address] PCP - General Nurse Practitioner 04/08/24 ChristineNataly haider MD [address] DIV MEDICAL ONCOLOGY, [facility] [address] [place] [address] Surgeon Breast Surgery 11/28/22 Cierra Elaine NP [address] [place] [id number] Nurse Practitioner Nurse Practitioner 12/31/22
--- OUTSIDE RECORDS SUMMARY | 2024-04-17 11:17 | XMS_ITS | Referral Summary ---
Author Organization 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 For women [...] Most Recently Relevant to Health Maintenance Insurance [facility] CHO[facility] PLUS Member Subscriber Plan / Payer (Ef fective 2022-Present) Name:Jenna Jenkins Relation to Subscriber:Self Name:Jenna Jenkins Payer ID:[id number] (NAIC) Type:[facility] HMO/PPO Address: [address] [id number] [facility] CHOICE PLUS Care Teams Terminal Supervisor Relationship Specialty Start Date End Date Cierra Elaine NP [address] [place] [id number] PCP - General Nurse Practitioner 04/08/24 Nataly King MD [address] [address] [facility] [address] DIV MEDICAL ONCOLOGY, [facility] [place] [address] Surgeon Breast Surgery 11/28/22 Cierra Elaine NP [address] [place] [id number] Nurse Practitioner Nurse Practitioner 12/31/22
--- OUTSIDE RECORDS SUMMARY | 2024-04-17 11:17 | XMS_ITS | Data Portability ---
Author Organization [facility] [place] Address [address] [place] [address] Care Team Providers Care Sap Basis Consultant Name Role Phone SEVERIANO SHAHIN Primary Care Provider [phone] Assessment Encounter Date Assessment Date Assessment LastModified [...] the fall and she could obtain at [facility] or [facility] clinic. Also to obtain TDap vaccination if [...] this email. pap collected mammogram MRI at [facility] samples of ashley [email or web address] Not [...] unit/gram -0.1 % topical ointment 2022 023 [email or web address] Not available 07/18/2022 12:35:32 Patient TargetsNo targets [...] epith elial compo nent for diagn osis ([facility] le consi sts of predo minan [...] thi (if appli cable ): Not Available [facility] (Lab) [address], [place], [address], 07/24/2022 12:14:53 09/25/19 24 09/25/2023 IMAGE GUIDE [...] as clini ronnie magalie nted. Not Available [facility] (Lab) [address], [place], [address], 10/01/2023 22:53:21 09/30/19 23 09/27/2022 MAMMO , scree souleymane, bilat eral No observ ation record ed. [email or web address] [facility] [facility] [address] [facility], [place], [address], 12/22/2022 14:35:02 Result Notes None recorded. Procedures Surgical History Date Name Laterality Status Provider Name and Address Organization Details Recorded Time 09/25/19 24 Date of Last Pap Smear completed Kaitlynn Jennings [facility] 09/25/2023 17:28:07 09/28/19 23 Date of Last Mammogram completed Kaitlynn Jennings [facility] 09/25/2023 11:11:20 08/07/19 21 completed Kaitlynn Jennings [facility] 06/13/2022 14:38:49 08/07/19 21 Date of Last Colonoscopy completed Kaitlynn Jennings [facility] 06/13/2022 14:38:49 08/07/19 21 Colonoscopy completed Kaitlynn Jennings [facility] 07/10/2022 16:22:54 05/06/19 20 Most Recent Bone Density completed Kaitlynn Jennings [facility] 06/13/2022 14:38:49 02/23/19 02 Breast Biopsy completed Kaitlynn Jennings [facility] 07/10/2022 16:24:04 02/23/19 01 Breast Biopsy completed Kaitlynnchad Jennings [facility] 07/10/2022 16:24:01 02/23/19 00 Breast Biopsy completed Kaitlynnchad Jennings [facility] 07/10/2022 16:23:50 02/23/18 90 extraction of wisdom tooth completed Kaitlynnchad Jennings [facility] 07/10/2022 16:23:31 Imaging Results Imaging Date Name Status LastModified by Organiz ation Details LastModified Time 09/27/2022 MAMMO, screening, bilateral completed [address] [facility] [address] [place] [address], [place], [address], 12/22/2022 14:35:02 Procedure Notes None recorded. Medical Equipment None Reported. Allergies Allergen ID Allergen Name Allergen Category Reaction Reaction Severity Criticality Documentation Date Start Date Code Code System Note Provider Name and Address Organization Details Recorded Time codeine medicatio n Not available Not available Not available 06/13/2022 2670 RxNorm Kaitlynn Jennings [facility], [facility] 14:39:07 Medications Name Sig Start Date [...] Available Not Availa ble Not Available Acid Physical Fitness Trainer (omeprazole ) 20 mg capsule,del ayed release 07/18 completed Not Available Not Available Not Available Vitals Date Recorded Body height Body mass index (BMI) Body weight Systolic blood pressure Diastolic blood pressure Provider Name and Address Organization Details Last Updated DateTime 06/13/2022 160.02 cm 20 kg/m2 75850.94 g 138 mm[Hg] 88 mm[Hg] Kaitlynn [facility] 3 14:36:41 Date Recorded Body height Body mass index (BMI) Body weight Systolic blood pressure Diastolic blood pressure Provider Name and Address Organization Details Last Updated DateTime 07/18/2022 160.02 cm 19.8 kg/m2 84326.35 g 116 mm[Hg] 68 mm[Hg] [facility] 12:35:12 Date Recorded Body height Body mass index (BMI) Body weight Systolic blood pressure Diastolic blood pressure Provider Name and Address Organization Details Last Updated DateTime 09/25/2023 160.02 cm 20.5 kg/m2 08521.71 g 111 mm[Hg] 73 mm[Hg] [facility] 4 11:09:53 Social History Question Answer Notes LastModified by Organizat ion Details LastModified Time Tobacco Smoking Status Never Smoker Jessekaro Fortunevik [facility] 07/18/2022 12:07:27 What Is Your Level Of Alcohol Consumption? None [email or web address] Information not available 09/25/2023 How Many Years Have You Consumed Alcohol? 10 Information not available 06/13/2022 Are You Blind Or Do You Have Difficulty Seeing? No [email or web address] Information n ot available 06/13/2022 What Is Your Level Of Caffeine Consumption? Moderate [email or web address] Information not available 06/13/2022 How Much Tobacco Do You Chew? None [email or web address] Information not available 06/13/2022 In The 14 Days Before Symptom Onset, Have You Had Close Contact With A Laboratory-confirm ed COVID-19 While That Case Was Ill? No [email or web address] Information n ot available 06/13/2022 In The 14 Days Before Symptom Onset, Have You Had Close Contact With A Person Who Is Under Investigation For COVID-19 While That Person Was Ill? No [email or web address] Information not available 06/13/2022 Have You Been To An Area Known To Be High Risk For COVID-19? No [email or web address] Information not available 06/13/2022 Are You Deaf Or Do You Have Serious Difficulty Hearing? No [email or web address] Information not available 06/13/2022 What Type Of Diet Are You Following? REGULAR [email or web address] Information n ot available 06/13/2022 What Is The Highest Grade Or Level Of School You Have Completed Or The Highest Degree You Have Received? [id number] [email or web address] Information not available 06/13/2022 What Is Your Occupation? Retired [email or web address] Information not available 06/13/2022 Are There Any Guns Present In Your Home? Yes Information not available 06/13/2022 Have You Ever Been Counseled For Unhealthy Alcohol Use? No [email or web address] Information not available 07/18/2022 Do You Use Protection During Sex? No [email or web address] Information not available 06/13/2022 Do You Use Your Seat Belt Or Car Seat Routinely? Yes [email or web address] Information not available 06/13/2022 Do You Have Smoke And Carbon Monoxide Detectors In Your Home? Yes [email or web address] Information not available 06/13/2022 How Much Tobacco Do You Smoke? No [email or web address] Information not available 06/13/2022 Do You Feel Stressed (tense, Restless, Nervous, Or Anxious, Or Unable To Sleep At Night)? [id number] [email or web address] Information not available 06/13/2022 Do You Use Any Illicit Or Recreational Drugs? No [email or web address] Information not available 06/13/2022 Do You Use Sunscreen Routinely? Yes [email or web address] Information not available 09/25/2023 Has Tobacco Cessation Counseling Been Provided? No Information not available 07/18/2022 Have You Used IV Drugs? No [email or web address] Information not available 06/13/2022 Do You Or Have You Ever Used Any Other Forms Of Tobacco Or Nicotine? No [email or web address] Information not available 07/18/2022 Sex: Unknown Functional Status Question Answer Note LastModified by Organizat ion Details LastModified Time Do you have difficulty walking or climbing stairs? No [email or web address] Information not available 07/18/2022 Are you able to walk? YESWOREST [email or web address] Information not available 06/13/2022 Are you able to care for yourself? Yes [email or web address] Information not available 07/18/2022 Do you have difficulty dressing or bathing? No [email or web address] Information not available 07/18/2022 What is your exercise level? Occasional [email or web address] Information not available 06/13/2022 Mental Status None recorded. Family History Relationship Description Onset Age of this Age Resolved Age Notes LastModified by Organization Details LastModified Time Mother Malignant tumor of breast Not available 06/13 14:38:49 Mother Osteoporosis [email or web address] Not luis ilable 06/13/2022 14:38:49 Daughter Anxiety disorder [email or web address] Not available 06/13 14:38:49 Brother Depressive disorder [email or web address] Not available 06/13 14:38:49 Brother Depressive disorder [email or web address] Not available 2023 10:47:41 Father Heart disease [email or web address] Not available 06/13 14:38:49 Medical History Condition Response Allergies (Food, seasonal, environmental ) Y Other N Breast Cancer N Drug/Latex Allergies/Reactions Y Blood Transfusion N Dermatologic Disorders Y Lung Disease N Defects or Inherited Disease N Breast Problem Y Gestational Diabetes N Hematologic disorders N Anesthesia Complications N History of STI N Deep Vein Thrombosis N Polycystic ovary syndrome N Anxiety Disorder N Autoimmune disease Y Arthritis N Infertility N Polyps N Acid Reflux (GERD) Y History of abnormal pap Y Cancer N Stroke N Varicosities N Neurologic/Epilepsy N Endometriosis Y High Cholesterol Y Headaches N Fibromyalgia N Kidney Disease N Heart Problems N Kidney or Bladder Problems N Thyroid Problems N GI Problems N Eating Disorder N Anemia Y Art (IVF or FET) N Psychiatric Illness N Ovarian Cancer N Diabetes N Pulmonary (TB, Asthma) N Hepatitis/Liver Disease N No Past Medical History N Eczema N Urinary Tract Infection Y Abuse/Domestic Violence N Asthma N Trauma/Violence N Depression/ depression N Heart Disease N Pre-Eclampsia N Hypertension N Osteoporosis N Thrombophilias N Gynecological History Statement/Question Response Date of [...] SNOMED-CT Code Diagnosis ICD10 Code Diagnosis Note [id number] Yuliana Rod [facility] [address] [address] 06/13/2022 14:11:29 06/13/2022 15:04:51 Vulvovaginitis [id number] N76.0 send vag cultures if neg consider biopsy [id number] Yuliana Rod [facility] [address],[place] [address] 07/18/2022 12:07:05 07/18/2022 13:56:22 Gynecologic examination [id number] Z01.419 [id number] Yuliana Rod [facility] [address],[place] [address] 09/25/2023 10:47:28 09/25/2023 13:22:09 Health Concerns Section Related Observation LastModified by Organization Detai ls LastModified Time None Recorded Concern Status LastModified by Organization Details LastModified Time None Recorded Advance Directives Directive None Recorded Payers Encounter Date Sequence Insurance Name Policy Number Policy Caldera Covered Member ID Caldera Member ID Guarantor Name 06/13/2022 1 [facility] ([facility] [id number] Jenna Jenkins [id number] Jenna Jenkins 07/18/2022 1 [facility] ([facility] [id number] Jenna Jenkins [id number] Jenna Jenkins 09/25/2023 1 [facility] ([facility] [id number] Jenna Jenkins [id number] Jenna Jenkins Notes Date Note Type Note Provider Name and Address Organization Details Recorded Time 06/13/2022 text/html vaginal rash? 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 06/13/2022 15:04:00 07/18/2022 text/html Annual GYNReport [...] renovation Yuliana Rod CNM [address], [place], [address], [facility] 07/18/2022 13:02:03 09/25/2023 text/html Annual GYNReport ed bypatient.History: no gynecologic complaints Menstrual cycle:Normal menses Urinary symptoms:No hematuria; No incontinence Vulva:No genital lesion Vagina:Normal vaginal discharge Breast:No breast pain; No breast lump; No nipple discharge; mammograms/ MRI at [facility] Sexual complaints:No sexual complaints; No pain during intercourse; Normal libido Menopausal Symptoms:No menopausal symptoms; Normal vaginal lubrication Psychological symptoms:No depression; No anxiety; No PMDD Preventive measures:Encourage self breast examination; Encourage regular exercise; Encourage no tobacco use; Followed with yearly pap smearsNotes:starte d on tamoxifen for increased risk of breast cancer Yuliana Rod CNM [address], [place], [address], [facility] 09/25/2023 11:39:53 OBGyn Episode Ob Episode Information Episode Created Date Number of Fetuses Patient Bloodtype Patient rh Status Prepregnancy Weight lbs Domestic Partner Domestic Partner Phone Father Name Fine Arts Model Status 06/14/19 23 1 CLOSED Fetus Data First Name Last Name Admitted to NICU Weight (g) Sex Living Outcome Pediatric Complications Fetus ID Race Codes Race Delivery Type 3685.43 5 F Full Term [id number] Vaginal Delivery Chano Calculation Initial Chano Date [...] Domestic Partner Domestic Partner Phone Father Name Fine Arts Model Status 06/14/19 1 CLOSED Fetus Data First Name Last Name Admitted to NICU Weight (g) Sex Living Outcome Pediatric Complications Fetus ID Race Codes Race Delivery Type 3458.63 9 M Full Term [id number] Vaginal Delivery Chano Calculation Initial Chano Date [...]
[2024-04-17 11:21] VITALS: BP 141/74; PULSE 71; RESP 18; TEMP 36.4; O2SAT 100
--- NOTE | 2024-04-17 11:31 | ECG_ITS ---
Test Date: 2024-04-17 12:29:17 Measurements Intervals [place] Rate: 67 P: 74 KS: 156 QRS: 61 QRSD: 86 T: 61 QT: 395 QTc: 419 Interpretive Statements SINUS RHYTHM BASELINE ARTIFACT- I, II, AVR, AVL, AVF BORDERLINE ECG No previous ECG available for comparison Electronically Signed On 04-17-2024 16:31:44 SURGICAL ELASTIC KNITTER by Guerrero Dixon D.O.
--- NOTE | 2024-04-17 11:34 | ED_ITS ---
HPI - General Adult General Chief complaint: Upper Respiratory Infection Stated complaint: L side pain Time Seen by Provider: 04/17/24 11:27 History of Present Illness HPI narrative: Patient is 59-year-old female presents emergency department with chief complaint of left-sided chest wall pain. Patient reports that 3 days ago she was coughing and reports that she felt a sharp type pain in her left lower chest/ribs patient states the pain is worse with inspiration reports is worse movement patient states that specific trauma but did start after home. Patient does report that for about a week virgie believes that she may have had flu was exposed to influenza previously. Related Data Home Medications ?Medication ?Instructions ?Recorded ?Confirmed ?Last Taken ?Type ascorbic acid (vitamin C) 250 mg 250 mg PO DAILY 11/21/22 11/02/23 Unknown History tablet cholecalciferol (vitamin D3) 10 10 mcg PO DAILY 11/21/22 04/17/24 Unknown History mcg (400 unit) capsule zinc gluconate 50 mg tablet 50 mg PO DAILY 11/21/22 11/02/23 Unknown History tamoxifen 20 mg tablet 20 mg PO DAILY 05/13/23 11/02/23 Unknown History vitamin B complex 1 tablet PO DAILY 08/17/23 11/02/23 Unknown History Allergies Allergy/AdvReac Type Severity Reaction Status Date / Time codeine Allergy Nausea and Verified 04/17/24 11:21 Vomiting Review of Systems 2 Review of Systems: A 10 system review of systems was completed on the patient and is negative except for what is stated in the HPI. Nursing and ancillary documentation was reviewed. [facility] Past Medical History Medical History IBS (irritable bowel syndrome) GERD (gastroesophageal reflux disease) Arthritis Family History Family History Father Hypertension Heart disease Mother Cancer Grandparent Cancer Cerebrovascular accident Social History Social History Smoking status: Never smoker Alcohol intake: current Alcohol use details: Daily Wine Substance use: never Substance use type: does not use Lack of Transportation: No Lack of Food: Never True Current Housing: I Have Housing Concerned About Future Housing: No Difficulty Paying Gas/Electric Bills: No Difficulty Paying for Meds: No Currently Unemployed: No Education: Trade/Vocational Certificate Difficulty w/ Childcare or Family Care: No Living arrangements: with family Gender identity (if verbalized by the patient): Female Sexual Orientation (if Verbalized by the Patient): Straight or Heterosexual Agree to blood products: Yes Exam 2 Narrative: GENERAL: Well-appearing, well-nourished, and in no acute distress. HEAD: Normocephalic, atraumatic. EYES: PERRLA and EOMI. ENT: Nares clear, no rhinorrhea or epistaxis. Mucous membranes moist. NECK: Supple. CHEST: Clear to auscultation. No respiratory distress. Chest wall is tender to palpation over the left lower ribs no crepitance noted HEART: Regular rate and rhythm. No murmur heard. Normal peripheral pulses. ABDOMEN: Soft, nontender, nondistended, normal active bowel sounds. EXTREMITIES: Normal range of motion. No edema. SKIN: Warm, dry, no rash. NEURO: No focal deficits. Alert and oriented x3. PSYCH: Normal mood and affect. Course Vital Signs Vital signs: Vital Signs Temperature 36.4 C 04/17/24 11:21 Pulse Rate 71 04/17/24 11:21 Respiratory Rate 18 04/17/24 11:21 Blood Pressure 141/74 H 04/17/24 11:21 Pulse Oximetry 100 04/17/24 11:21 Oxygen Delivery Room Air 04/17/24 11:21 Temperature 36.4 C 04/17/24 11:21 Pulse Rate 63 04/17/24 15:17 Respiratory Rate 12 04/17/24 15:17 Blood Pressure 132/76 04/17/24 15:17 Pulse Oximetry 100 04/17/24 15:17 Oxygen Delivery Room Air 04/17/24 11:21 Medical Decision Making [facility] Narrative Medical decision making narrative: Differential diagnosis includes pneumonia, pneumothorax, pulmonary embolism, ACS, Laboratory studies were obtained on the patient which showed normal CBC CMP showed no acute abnormalities D-dimer was slightly elevated The patient underwent a PE study that showed no evidence of pulmonary embolism but did show evidence of a rib fracture at the location where the patient is having pain The patient was started on incentive spirometry given prescription for pain control and should follow up with her primary care provider Vital Signs Vital Signs: Vital Signs Temperature 36.4 C 04/17/24 11:21 Pulse Rate 71 04/17/24 11:21 Respiratory Rate 18 04/17/24 11:21 Blood Pressure 141/74 H 04/17/24 11:21 Pulse Oximetry 100 04/17/24 11:21 Oxygen Delivery Room Air 04/17/24 11:21 Temperature 36.4 C 04/17/24 11:21 Pulse Rate 63 04/17/24 15:17 Respiratory Rate 12 04/17/24 15:17 Blood Pressure 132/76 04/17/24 15:17 Pulse Oximetry 100 04/17/24 15:17 Oxygen Delivery Room Air 04/17/24 11:21 Lab Data 04/17/24 12:32 04/17/24 12:32 Labs: Lab Results 04/17/24 04/17/24 04/17/24 Range/Units 12:32 12:32 12:32 WBC 9.0 (4.5-10.0) K/mm3 RBC 3.94 L (4.2-5.4) M/mm3 Hgb 12.3 (12.0-15.0) g/dL Hct 37.4 (37.0-47.0) % MCV 94.9 (80-100) fl MCH 31.2 (26-34) pg MCHC 32.9 (32-36) g/dl RDW 12.8 (11.5-14.5) % Plt Count 202 (150-375) k/mm3 MPV 11.2 H (7.4-10.4) fl Immature Gran % (Auto) 0.3 (0-0.5) % Neut % (Auto) 81.3 H (45.5-73.1) % Lymph % (Auto) 12.0 L (18.3-44.2) % [place] % (Auto) 5.9 (2.6-8.5) % Eos % (Auto) 0.4 (0-4.4) % Baso % (Auto) 0.1 L (0.2-1.2) % Lymph # (Auto) 1.08 (0.9-3.2) K/mm3 [place] # (Auto) 0.5 (0.1-0.6) K/mm3 Eos # (Auto) 0.0 (0-0.3) K/mm3 Baso # (Auto) 0.0 (0.0-0.1) K/mm3 Abs Immat Gran (auto) 0.03 (0.00-0.031) K/mm3 Absolute Neuts (auto) 7.3 H (1.3-6.7) K/mm3 Absolute Nucleated RBC 0.000 (0.0-0.012) K/mm3 Nucleated RBC % 0.0 (0.0-0.2) % PT 12.6 (11.1-14.7) Seconds INR 0.9 APTT 21.9 L (22.3-36.8) Seconds D-Dimer 0.74 H Cancelled (<0.48) ug/mL Sodium 141 (137-145) mmol/L Potassium 4.1 (3.4-5.0) mmol/L Chloride 105 (98-107) mmol/L Carbon Dioxide 27 (22-30) mmol/L Anion Gap 9 (4-12) mmol/L BUN 18 H (7-17) mg/dL Creatinine 0.76 (0.7-1.0) mg/dL Estim Creat Clear Calc 52 ml/min Estimated GFR > 60 (59 - ) Glucose 89 (65-110) mg/dL Lactic Acid 1.0 (0.7-2.0) mmol/L Calcium 9.0 (8.4-10.2) mg/dL Magnesium Cancelled 2.2 Total Bilirubin 0.4 (0.2-1.3) mg/dL AST 32 (14-36) U/L ALT 29 (6-35) U/L Alkaline Phosphatase 46 (38-126) U/L Troponin I Cancelled NT-Pro-B Natriuret Pep (19.9-100) pg/mL Total Protein (6.3-8.2) g/dL Albumin (3.5-5.1) g/dL Lipase (23-300) U/L Procalcitonin ng/mL Urine Color (Yellow) Urine Appearance (Clear) Urine pH (5.0-9.0) Ur Specific [place] (1.001-1.035) Urine Protein (Negative) mg/dL Urine Glucose (UA) (Negative) mg/dL Urine Ketones (Negative) mg/dL Ur Blood (Man) (Negative) Urine Nitrate (Negative) Urine Bilirubin (Negative) Urine Urobilinogen (<2.0) mg/dL Leukocyte Esterase Rfl (Negative) ERIN/UL Influenza A (RT-PCR) (Negative) Influenza B (RT-PCR) (Negative) RSV (RT-PCR) (Negative) SARS-CoV-2 RNA (RT-PCR) (Negative) 04/17/24 04/17/24 Range/Units 12:32 12:32 WBC (4.5-10.0) K/mm3 RBC (4.2-5.4) M/mm3 Hgb (12.0-15.0) g/dL Hct (37.0-47.0) % MCV (80-100) fl MCH (26-34) pg MCHC (32-36) g/dl RDW (11.5-14.5) % Plt Count (150-375) k/mm3 MPV (7.4-10.4) fl Immature Gran % (Auto) (0-0.5) % Neut % (Auto) (45.5-73.1) % Lymph % (Auto) (18.3-44.2) % [place] % (Auto) (2.6-8.5) % Eos % (Auto) (0-4.4) % Baso % (Auto) (0.2-1.2) % Lymph # (Auto) (0.9-3.2) K/mm3 [place] # (Auto) (0.1-0.6) K/mm3 Eos # (Auto) (0-0.3) K/mm3 Baso # (Auto) (0.0-0.1) K/mm3 Abs Immat Gran (auto) (0.00-0.031) K/mm3 Absolute Neuts (auto) (1.3-6.7) K/mm3 Absolute Nucleated RBC (0.0-0.012) K/mm3 Nucleated RBC % (0.0-0.2) % PT (11.1-14.7) Seconds INR APTT (22.3-36.8) Seconds D-Dimer (<0.48) ug/mL Sodium (137-145) mmol/L Potassium (3.4-5.0) mmol/L Chloride (98-107) mmol/L Carbon Dioxide (22-30) mmol/L Anion Gap (4-12) mmol/L BUN (7-17) mg/dL Creatinine (0.7-1.0) mg/dL Estim Creat Clear Calc ml/min Estimated GFR (59 - ) Glucose (65-110) mg/dL Lactic Acid (0.7-2.0) mmol/L Calcium (8.4-10.2) mg/dL Magnesium Total Bilirubin (0.2-1.3) mg/dL AST (14-36) U/L ALT (6-35) U/L Alkaline Phosphatase (38-126) U/L Troponin I < 0.012 Pending NT-Pro-B Natriuret Pep 77 (19.9-100) pg/mL Total Protein 8.0 (6.3-8.2) g/dL Albumin 4.1 (3.5-5.1) g/dL Lipase 167 (23-300) U/L Procalcitonin 0.0 ng/mL Urine Color Yellow (Yellow) Urine Appearance Clear (Clear) Urine pH 5.5 (5.0-9.0) Ur Specific [place] 1.008 (1.001-1.035) Urine Protein Negative (Negative) mg/dL Urine Glucose (UA) Negative (Negative) mg/dL Urine Ketones Negative (Negative) mg/dL Ur Blood (Man) Negative (Negative) Urine Nitrate Negative (Negative) Urine Bilirubin Negative (Negative) Urine Urobilinogen 0.2 (<2.0) mg/dL Leukocyte Esterase Rfl Negative (Negative) ERIN/UL Influenza A (RT-PCR) Negative (Negative) Influenza B (RT-PCR) Negative (Negative) RSV (RT-PCR) Negative (Negative) SARS-CoV-2 RNA (RT-PCR) Negative (Negative) Discharge Plan Discharge Clinical Impression: Closed rib fracture Patient Disposition: Home, Self-Care Condition: Stable Instructions: Antibiotic Form, How to Use an Incentive Spirometer (ED), Rib Fracture (ED) Patient Language: Yoruba Prescriptions: New hydrocodone-acetaminophen 5-325 mg tablet 1 tablet PO Q6H PRN (Reason: pain) 3 Days Qty: 12 0RF No Action tamoxifen 20 mg tablet 20 mg PO DAILY cholecalciferol (vitamin D3) 10 mcg (400 unit) capsule 10 mcg PO DAILY ascorbic acid (vitamin C) 250 mg tablet 250 mg PO DAILY zinc gluconate 50 mg tablet 50 mg PO DAILY naproxen 500 mg tablet 500 mg PO BID Qty: 30 0RF rosuvastatin 20 mg tablet See Rx Instructions .ROUTE .COMPLEX Qty: 90 1RF Dose Instruction: TAKE 1 TABLET BY MOUTH EVERY DAY Rx Instructions: TAKE 1 TABLET BY MOUTH EVERY DAY alendronate [Fosamax] 70 mg tablet 70 mg PO WEEKLY Qty: 12 3RF omeprazole 20 mg capsule,delayed release(DR/EC) See Rx Instructions .ROUTE .COMPLEX Qty: 90 1RF Dose Instruction: TAKE 1 CAPSULE BY MOUTH EVERY DAY Rx Instructions: TAKE 1 CAPSULE BY MOUTH EVERY DAY montelukast 10 mg tablet See Rx Instructions .ROUTE .COMPLEX Qty: 90 3RF Dose Instruction: TAKE 1 TABLET BY MOUTH EVERYDAY AT BEDTIME Rx Instructions: TAKE 1 TABLET BY MOUTH EVERYDAY AT BEDTIME vitamin B complex [B Complex-Vitamin B12] Tablet 1 tablet PO DAILY Follow-up/Referrals: Cierra Elaine APRN [Primary Care Provider] - Time of Disposition: 15:28
--- OUTSIDE RECORDS SUMMARY | 2024-04-17 11:43 | XMS_ITS | Encounter Summary ---
Author Organization [facility] Address [address] [place] [address] Care Team Providers Care County Demonstrator Name Role Phone Unavailable Primary Care Provider Unavailabl e Prior Encounters Date Type Department Care Team Description 11/13/2021 9:30 AM CDT Office Visit [facility] [address] [place] [address] Fartun Reynoso DDS [place] 09/20/2021 10:30 AM CDT Office Visit [facility] [address] [place] [phone] Elvira Zuniga DDS 09/20/2021 10:00 AM CDT Office Visit [facility] [address] [place] [phone] 09/19/2021 3:00 PM CDT Office Visit [facility] [address] [place], [place] [address] [address] Fartun Reynoso DDS [place] 06/12/2021 10:30 AM CDT Office Visit [facility] [id number] [place] [address] Fartun Reynoso DDS [place] 03/20/2021 9:30 AM TROUBLE CLERK [facility] Encounter [facility] [address] [place] [address] Provider, Historical 01/30/2021 8:30 AM TROUBLE CLERK [facility] Encounter [facility] [address] [facility], [place] [address] Provider, Historical 03/14/2019 Converted CPS Chart Documents [facility] [address] [facility], [place] [phone] <No scans attached> 03/14/2019 Converted 13x Documents [facility] [address] [facility], [place] [address] <No scans attached> 03/14/2019 Converted CPS Chart Documents [facility] [address] [facility], [place] [address] <No scans attached> 03/14/2019 Converted 13x Documents [facility] [address] [facility], [place] [address] <No scans attached> Last Filed [...] 2 CEMENT CROWN Routine 04/23/2021 2:00 AM TROUBLE CLERK SINGLE X-RAY Routine 04/23/2021 2:00 AM TROUBLE CLERK INTRAORAL PHOTO Routine 04/23/2021 2:00 AM TROUBLE CLERK PERIODIC ORTHODONTIC TREATMENT VISIT Routine 03/20/2021 2:00 AM TROUBLE CLERK 2 CORE BUILDUP, INCLUDING ANY PINS WHEN REQUIRED Routine 03/20/2021 2:00 AM TROUBLE CLERK 2 ZIRCONIA LAB MADE CROWN POST Routine 03/20/2021 2:00 AM TROUBLE CLERK PERIODIC ORTHODONTIC TREATMENT VISIT Routine 01/30/2021 2:00 AM TROUBLE CLERK PERIODIC ORAL EVALUATION - ESTABLISHED PATIENT Routine 01/30/2021 2:00 AM TROUBLE CLERK ORAL HYGIENE INSTRUCTIONS Routine 2020 2:00 AM TROUBLE CLERK PROPHYLAXIS - ADULT Routine 01/30/2021 2 :00 AM TROUBLE CLERK PERIODIC ORTHODONTIC TREATMENT VISIT Routine 11/17/2020 2:00 [...] - 18M Routine 06/28/2020 2:00 AM CDT EMERGENCY SPECIALIST CONSULTATION Routine 2020 2:00 AM CDT PERIODIC [...] - ESTABLISHED PATIENT Routine 03/02/2019 2:00 AM TROUBLE CLERK ORAL HYGIENE INSTRUCTIONS Routine 2019 2:00 AM TROUBLE CLERK PROPHYLAXIS - ADULT Routine 03/02/2019 2 :00 AM TROUBLE CLERK BITEWINGS - FOUR RADIOGRAPHIC IMAGES Routine 03/02/2019 2:00 AM TROUBLE CLERK ADDITIONAL X-RAY Routine 03/02/2019 2:00 AM TROUBLE CLERK ADDITIONAL X-RAY Routine 03/02/2019 2:00 AM TROUBLE CLERK ADDITIONAL X-RAY Routine 03/02/2019 2:00 AM TROUBLE CLERK ADDITIONAL X-RAY Routine 03/02/2019 2:00 AM TROUBLE CLERK ADDITIONAL X-RAY Routine 03/02/2019 2:00 AM TROUBLE CLERK SINGLE X-RAY Routine 03/02/2019 2:00 AM TROUBLE CLERK FM BLEACH IN-OFFICE Routine 09/17/2018 2 :00 AM CDT 19 B COMPOSITE FILLING Routine 9 2:00 AM CDT PERIODIC ORAL EVALUATION - ESTABLISHED PATIENT Routine 08/19/2018 2:00 AM CDT ORAL HYGIENE INSTRUCTIONS Routine 2018 2:00 AM CDT PROPHYLAXIS - ADULT Routine 08/18/2018 2 :00 AM CDT PERIODIC ORAL EVALUATION - ESTABLISHED PATIENT Routine 01/25/2018 2:00 AM TROUBLE CLERK ORAL HYGIENE INSTRUCTIONS Routine 2017 2:00 AM TROUBLE CLERK TOPICAL APPLICATION OF FLUORIDE VARNISH Routine 01/25/2018 2:00 AM TROUBLE CLERK PROPHYLAXIS - ADULT Routine 01/25/2018 2 :00 AM TROUBLE CLERK BITEWINGS - FOUR RADIOGRAPHIC IMAGES Routine 01/25/2018 2:00 AM TROUBLE CLERK ADDITIONAL X-RAY Routine 01/25/2018 2:00 AM TROUBLE CLERK ADDITIONAL X-RAY Routine 01/25/2018 2:00 AM TROUBLE CLERK ADDITIONAL X-RAY Routine 01/25/2018 2:00 AM TROUBLE CLERK ADDITIONAL X-RAY Routine 01/25/2018 2:00 AM TROUBLE CLERK ADDITIONAL X-RAY Routine 01/25/2018 2:00 AM TROUBLE CLERK SINGLE X-RAY Routine 01/25/2018 2:00 AM TROUBLE CLERK PERIODIC ORAL EVALUATION - ESTABLISHED PATIENT Routine 07/15/2017 2:00 AM CDT ORAL HYGIENE INSTRUCTIONS Routine 2017 2:00 AM CDT TOPICAL APPLICATION OF FLUORIDE VARNISH Routine 07/15/2017 2:00 AM CDT PROPHYLAXIS - ADULT Routine 07/15/2017 2 :00 AM CDT PERIODIC ORAL EVALUATION - ESTABLISHED PATIENT Routine 12/31/2016 2:00 AM TROUBLE CLERK ORAL HYGIENE INSTRUCTIONS Routine 2016 2:00 AM TROUBLE CLERK TOPICAL APPLICATION OF FLUORIDE VARNISH Routine 12/31/2016 2:00 AM TROUBLE CLERK PROPHYLAXIS - ADULT Routine 12/31/2016 2 :00 AM TROUBLE CLERK 30 B AMALGAM 1 SURFACE Routine 7 [...] on file Administered Medications Insurance O O Member Subscriber Plan / [facility] Name:Carolyn Jenkinsn Relation to Subscriber:Self Name:Jenna Jenkins Payer ID:[id number] Type:Not on file Address: [address] [place] [address]
--- OUTSIDE RECORDS SUMMARY | 2024-04-17 11:43 | XMS_ITS | Clinical Summary ---
Author Organization [facility] Address [address] [address] Phone Care Team Providers Care Shift Foreman Name Role Phone Provider, None Primary Care [...] Comments Blood Pressure 118/72 01/22/2015 8:34 AM CHILD PSYCHOLOGY TEACHER Pulse 102 01/22/2015 8:34 AM CHILD PSYCHOLOGY TEACHER Temperature 36.3 C (97.3 F) 01/22/2015 8:34 AM CHILD PSYCHOLOGY TEACHER Respiratory Rate 18 01/22/2015 8:34 AM CHILD PSYCHOLOGY TEACHER Oxygen Saturation 97% 01/22/2015 8:34 AM CHILD PSYCHOLOGY TEACHER Inhaled Oxygen Concentration - - Weight 52.8 kg (116 lb 4.8 oz) 01/22/2015 8:34 A M CHILD PSYCHOLOGY TEACHER Height 162.6 cm (5' 4 ) 01/22/2015 8:34 AM CHILD PSYCHOLOGY TEACHER Body Mass Index 19.96 01/22/2015 8:34 AM CHILD PSYCHOLOGY TEACHER Plan of Treatment Health Maintenance Due Date [...] to exams dated: 09/06/2015, 08/29/2014, and 08/23/2013 [facility]. BREAST TISSUE: The tissue of both [...] be contacted. Lizeth Viramontes M.D. pw/:10/23/2016 15:14:47 Ophthalmic Dispenser: Susan CHRISTIE)(Yessica), [facility] letter sent: Additional Imaging Reading location: [facility] BI-RADS: 0 Additional Imaging Evaluation [...] to exams dated: 09/06/2015, 08/29/2014, and 08/23/2013 [facility]. BREAST TISSUE: The tissue of both [...] be contacted. Lizeth Viramontes M.D. pw/:10/23/2016 15:14:47 Ophthalmic Dispenser: Susan GRIFFITH(R)(M), [facility] letter sent: Additional Imaging Reading location: [facility] BI-RADS: 0 Additional Imaging Evaluation Needed Armin Schwartz MD IMG MAMMO ORDERABLES F inal Result * HM COLONOSCOPY (08/28/2014) Dannie Garg Jr., MD PROCEDURE/MINOR ROMULO GICAL ORDERABLES Final Result * HM PAP SMEAR (04/23/2010) Dannie Garg Jr., MD CHG - LABORATORY Fi nal Result from Last 3 Months or Most Recently Relevant to Health Maintenance Care Teams Shift Foreman Relationship Specialty Start Date End Date Provider, None [place] PCP - General 05/19/16
--- OUTSIDE RECORDS SUMMARY | 2024-04-17 11:43 | XMS_ITS | Clinical Summary ---
Author Organization [facility] Address [address] [place] [phone] Care Team Providers Care Curing Pickling Packer Name Role Phone Nataly King MD Unavailable Cierra Elaine NP Unavailable [phone] Cierra Elaine NP Primary Care Provider Allergies Active Allergy Reactions Criticality Noted Date [...] on file Legal Sex Female 7:52 PM MEMBER SERVICES REPRESENTATIVE Gender Identity Not on file Sexual Orientation [...] cm (5' 3.5 ) 12/31/2022 9:56 AM MEMBER SERVICES REPRESENTATIVE no shoe Body Mass Index 20.57 12/31/2022 9:56 AM MEMBER SERVICES REPRESENTATIVE Plan of Treatment Health Maintenance Due Date [...] age 39, based on guidelines of the [employer] (ACR Practice Parameter for the Performance of Screening and Diagnostic Mammography) and [employer]. For women [...] Most Recently Relevant to Health Maintenance Insurance [facility] Care Teams Curing Pickling Packer Relationship Specialty Start Date End Date Cierra Elaine NP [address] [place] [address] [address] [place] [address] PCP - General Nurse Practitioner 04/08/24 ChristineNataly haider MD [address] [facility] [address] DIV MEDICAL ONCOLOGY, [facility] [address] [place] [address] Surgeon Breast Surgery 11/28/22 Cierra Elaine NP [address] [place] [address] Nurse Practitioner Nurse Practitioner 12/31/22
--- OUTSIDE RECORDS SUMMARY | 2024-04-17 11:43 | XMS_ITS | Encounter Summary ---
Author Organization [facility] Address [address] [place] [address] Phone Care Team Providers Care Rigging Up Man Name Role Phone Nataly King MD Unavailable [phone] Unknown, Notinfile Primary Care Provider Unavail able Jp Myers MD Primary Care Provider [phone] Cierra Elaine NP Unavailable [phone] Cierra Elaine NP Primary Care Provider [phone] Encounter Details Date Type Department Care Team (Latest Contact Info) Description 09/27/2022 Orders Only [facility] Scanning, Provider Social History Tobacco Use Types Packs/Day Years Used Date Smoking Tobacco: Never Assessed Comments Unknown Sex and Gender Information Value Date Recorded Sex Assigned at Not on file Legal Sex Female 7:52 PM PATCH WASHER Gender Identity Not on file Sexual Orientation [...] on filedocumented in this encounter Care Teams Rigging Up Man Relationship Specialty Start Date End Date Unknown, Notinfile PCP - General 12/29/22 12/30/22 Jp Myers MD PCP - General Family Practice 12/31/22 04/07/24 Cierra Elaine NP [address] [place] [address] PCP - General Nurse Practitioner 04/08/24 Nataly King MD [address] [facility] MEDICAL ONCOLOGY, [facility] [place] [address] Surgeon Breast Surgery 11/28/22 Cierra Elaine NP [address] [place] [address] Nurse Practitioner Nurse Practitioner 12/31/22 documented as of this encounter
--- OUTSIDE RECORDS SUMMARY | 2024-04-17 11:43 | XMS_ITS | Referral Summary ---
Author Organization [facility] Address [address] [place] [phone] Care Team Providers Care Director Of Marketing [employer] Performance Ads Name Role Phone Nataly King MD Unavailable [phone] Cierra Elaine NP Unavailable Cierra Elaine NP Primary Care Provider [phone] Allergies Active Allergy Reactions Criticality Noted Date [...] on file Legal Sex Female 7:52 PM ASSOCIATE VICE PRESIDENT Gender Identity Not on file Sexual Orientation [...] cm (5' 3.5 ) 12/31/2022 9:56 AM ASSOCIATE VICE PRESIDENT no shoe Body Mass Index 20.57 12/31/2022 9:56 AM ASSOCIATE VICE PRESIDENT Plan of Treatment Not on file Procedures [...] age 39, based on guidelines of the [employer] (ACR Practice Parameter for the Performance of Screening and Diagnostic Mammography) and [employer]. For women [...] Most Recently Relevant to Health Maintenance Insurance [facility]O Address: [place] [id number] [facility]/PPO Address: [address] [address] Care Teams Director Of Marketing [employer] Performance Ads Relationship Specialty Start Date End Date Cierra Elaine NP [address] [place] [address] PCP - General Nurse Practitioner 04/08/24 Nataly King MD [address] [facility] [address] DIV MEDICAL ONCOLOGY, [facility] [place] [address] Surgeon Breast Surgery 11/28/22 Cierra Elaine NP [address] [place] [address] Nurse Practitioner Nurse Practitioner 12/31/22
--- OUTSIDE RECORDS SUMMARY | 2024-04-17 11:43 | XMS_ITS | Clinical Summary ---
Author Organization [facility] Address [address] [place] [address] Care Team Providers Care Program Management Professional Name Role Phone Unavailable Primary Care Provider [...]
[2024-04-17 12:36] VITALS: BP 130/67; PULSE 63; RESP 14; O2SAT 100
[2024-04-17 13:02] LABS: Alanine Aminotransferase 29 U/L (6-35); Albumin Level 4.1 g/dL (3.5-5.1); Alkaline Phosphatase 46 U/L (38-126); Anion Gap 9 mmol/L (4-12); Aspartate Amino Transferase 32 U/L (14-36); Basophils Percent Auto 0.1 % (0.2-1.2); Bilirubin,Total 0.4 mg/dL (0.2-1.3); Blood Urea Nitrogen 18 mg/dL (7-17); Carbon Dioxide 27 mmol/L (22-30); Chloride 105 mmol/L (98-107); Eosinophils Percent Auto 0.4 % (0-4.4); Estimated CRCL calculation 52 ml/min; Estimated Glomerular Filt Rate > 60; Glucose 89 mg/dL (65-110); Hematocrit 37.4 % (37.0-47.0); Hemoglobin 12.3 g/dL (12.0-15.0); Immature Granulocyte Absolute 0.03 K/mm3 (0.00-0.031); Immature Granulocyte Percent A 0.3 % (0-0.5); Lipase 167 U/L (23-300); Lymphocytes Absolute Auto 1.08 K/mm3 (0.9-3.2); Mean Corpuscular HGB Conc 32.9 g/dl (32-36); Mean Corpuscular Hemoglobin 31.2 pg (26-34); Mean Corpuscular Volume 94.9 fl (80-100); Mean Platelet Volume 11.2 fl (7.4-10.4); Monocytes Absolute Auto 0.5 K/mm3 (0.1-0.6); Monocytes Percent Auto 5.9 % (2.6-8.5); Neutrophils Absolute Auto 7.3 K/mm3 (1.3-6.7); Neutrophils Percent Auto 81.3 % (45.5-73.1); Platelet Count Result 202 k/mm3 (150-375); Potassium 4.1 mmol/L (3.4-5.0); Red Blood Count 3.94 M/mm3 (4.2-5.4); Red Cell Distribution Width 12.8 % (11.5-14.5); Sodium 141 mmol/L (137-145)
[2024-04-17 13:09] LABS: Add Urine Microscopic? NO; Appearance Urine Clear (Clear); Bilirubin Urine Negative (Negative); Blood Urine Negative (Negative); Color Urine Yellow (Yellow); Glucose Urine UA Negative (Negative); Ketones Urine Negative (Negative); Leukocyte Esterase Ur Negative LEU/UL (Negative); Nitrate Urine Negative (Negative); Protein Urine Negative (Negative); Specific Grav Ur 1.008 (1.001-1.035); Urobilinogen Urine 0.2 mg/dL (<2.0); pH Urine 5.5 (5.0-9.0)
[2024-04-17 13:10] LABS: NT Pro B Type Natriuretic Pept 77 pg/mL (19.9-100)
[2024-04-17 13:16] LABS: Magnesium 2.2 mg/dL (1.6-2.3)
[2024-04-17 13:17] LABS: INR 0.9; Prothrombin Time 12.6 Seconds (11.1-14.7)
[2024-04-17 13:18] LABS: Partial Thromboplastin Time 21.9 Seconds (22.3-36.8)
[2024-04-17 13:22] LABS: Troponin I < 0.012 ng/mL (0.000-0.034)
[2024-04-17 13:38] LABS: D Dimer 0.74 ug/mL (<0.48)
[2024-04-17 13:44] LABS: Influenza A QL RT-PCR Negative (Negative); Influenza B QL RT-PCR Negative (Negative); RSV RNA, RT-PCR Negative (Negative); SARS-CoV-2 RNA PCR Negative (Negative)
[2024-04-17 13:53] VITALS: BP 107/75; PULSE 71; RESP 16; O2SAT 100
[2024-04-17] MEDS: KETOROLAC 15 MG/ML VIAL (*BKC) IV PUSH (15:15)
[2024-04-17 15:17] VITALS: BP 132/76; PULSE 63; RESP 12; O2SAT 100
[2024-04-17 16:17] VITALS: BP 123/72; PULSE 61; RESP 16; TEMP 36.6; O2SAT 100
== END 2024-04-17 16:19 | disposition home or self-care (01) ==
PROVIDERS: Emergency Provider Emergency Medicine; PCP Nurse Practitioner Adult Health
DX: S22.32XA Fracture of one rib, left side, initial encounter for closed fracture (principal); K21.9 Gastro-esophageal reflux disease without esophagitis; Z20.822 Contact with and (suspected) exposure to COVID-19
CPT/HCPCS: 36415; 71046; 71275; 80053; 81003; 83605; 83690; 83735; 83880; 84145; 84484; 85025; 85380; 85610; 85730; 87637; 93005; 96374; 99284; J1885; Q9967

== ENCOUNTER 2024-11-02 08:38 | Outpatient (CLI) | payer OTHER, SELFPAY ==
--- OUTSIDE RECORDS SUMMARY | 2024-10-31 09:10 | XMS_ITS | Encounter Summary ---
Author Organization [facility] Address [facility] [place] [address] Care Team Providers Care Real Estate Financial Analyst Name Role Phone Nataly King MD Unavailable [phone] Cierra Elaine NP Unavailable [phone] Cierra Elaine NP Primary Care Provider [phone] Reason for Referral * Diagnostic Imaging (Routine) - Closed Specialty Diagnoses / Procedures Referred By Elif marlow Referred To Contact Diagnoses Breast cancer screening by mammogram Encounter for screening mammogram for breast cancer Procedures Screening Mammogram Bilateral W Nataly Hernandez MD [address] [place] [address] Phone: tel: fax: [address] [address] Referral ID Status Reason Start Date Expiration Date Visits Re quested Visits Authorized [id number] Closed 09/30/2023 10/29/2024 1 1 Reason for Visit * Diagnostic Imaging (Routine) - Closed Specialty Diagnoses / Procedures Referred By Elif marlow Referred To Contact Diagnoses Breast cancer screening by mammogram Encounter for screening mammogram for breast cancer Procedures Screening Mammogram Bilateral W Nataly Hernandez MD [address] [place] [address] Phone: tel: fax: [address] [place] [address] Referral ID Status Reason Start Date Expiration Date Visits Re quested Visits Authorized [id number] Closed 09/30/2023 10/29/2024 1 1 Encounter Details Date Type Department Care Team (Latest Contact Info) Description 10/31/2024 9:10 AM CDT - 10/31/2024 11:59 PM CDT Hospital Encounter [facility] [address] [facility] [address] [facility] [address] [place] [address] Breast cancer screening by mammogram; Encounter for screening mammogram for breast cancer Discharge Disposition: Discharge to home or self care Social History Tobacco Use Types Packs/Day Years Used Date Smoking Tobacco: Never Passive Smoke Exposure: Never Smokeless Tobacco: Never AUDIT-C Answer Date Recorded Q1: How often do you have a drink containing alcohol? Never 12/31/2022 Q2: How many drinks containi ng alcohol do you have on a typical day when you are drinking? Patient does not drink Q3: How often do you have si x or more drinks on one occasion? 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 Gender Identity Not on file Sexual Orientation Not on file documented as of this encounter Last Filed Vital Signs Vital Sign Reading Time Taken Comments Blood Pressure - - Pulse - - Temperature - - Respiratory Rate - - Oxygen Saturation - - Inhaled Oxygen Concentration - - Weight 53.5 kg (117 lb 15.1 oz) 10/31/2024 9:48 AM CDT Height 161.3 cm (5' 3.5) 10/31/2024 9:48 AM CDT Body Mass Index 20.56 10/31/2024 9:48 AM CDT documented in this encounter Medications at Time of Discharge ascorbic acid (VITAMIN C) 1,000 mg tablet Take 1 tablet (1,000 mg total) by mouth daily cholecalciferol (VITAMIN D-3) 1,000 unit capsule 05/24/2021 cyanocobalamin (Vitamin B-12) 1,000 mcg tabletIndications :Prevention of Vitamin B12 Deficiency Take 1 tablet (1,000 mcg total) by mouth daily montelukast (SINGULAIR) 10 mg tablet Take 1 tablet (10 mg total) by mouth nightly omeprazole (PriLOSEC) 20 mg capsule Take by mouth daily tamoxifen (NOLVADEX) 20 mg tabletIndications :prevention of breast cancer in high risk women Take 1 tablet (20 mg total) by mouth daily 90 tablet 3 10/31/2024 vitamin K2 40 mcg tablet Take by mouth zinc citrate-phytase 25-500 mg capsule 09/24/2020 documented as of this encounter Discharge Disposition Disposition Code Departure Means Destination Discharge to home or self care documented in this encounter Plan of Treatment Not on file documented as of this encounter Procedures Procedure Name Priority Date/Time Associated Diagnosis Comments SCREENING MAMMOGRAM BILATERAL W TE Schedule Routine, Read Routine (OP Routine) 10/31/2024 9:48 AM CDT Breast cancer screening by mammogram Encounter for screening mammogram for breast cancer documented in this encounter Results * Screening Mammogram Bilateral W Te (10/31/2024 9:48 AM CDT) Anatomical Region Laterality Modality Breast Bilateral Mammography Impressions 10/31/2024 10:22 AM CDT Bilateral No evidence of malignancy in either breast. OVERALL BI-RADS FINAL ASSESSMENT: 1 - Negative RECOMMENDATION: Recommend bilateral annual screening mammography. Consider supplemental screening with breast MRI every 1-2 years given extremely dense breast tissue. If breast MRI cannot be performed, consider contrast-enhanced mammography as an alternative. Narrative 10/31/2024 10:22 AM CDT EXAMINATION: Screening Mammogram Bilateral W Te: 10/31/2024 COMPARISON: Relevant prior studies available at the time of interpretation were reviewed, including the most recent mammogram on: 09/30/2023. TECHNIQUE: Mammography was performed with 2D and 3D digital breast tomosynthesis (DBT) images. CAD was utilized. BREAST PARENCHYMAL COMPOSITION: The breasts are extremely dense, which lowers the sensitivity of mammography. FINDINGS: Bilateral There is no suspicious mass, calcification, or architectural distortion in either breast. Nataly King MD IMG MAMMO PROCEDURES Final Result documented in this encounter Visit Diagnoses Diagnosis Breast cancer screening by mammogram Encounter for screening mammogram for breast cancer documented in this encounter Care Teams Real Estate Financial Analyst Relationship Specialty Start Date End Date Cierra Elaine NP [facility] [place] [place] [address] PCP - General Nurse Practitioner 04/08/24 Nataly King MD [address] [facility] [address] DIV IM MEDICAL ONCOLOGY, [address] [address] Surgeon Breast Surgery 11/28/22 Cierra Elaine NP [address] [place] [address] Nurse Practitioner Nurse Practitioner 12/31/22 documented as of this encounter
--- OUTSIDE RECORDS SUMMARY | 2024-11-02 09:05 | XMS_ITS | Clinical Summary ---
Author Organization [facility] Address [facility] [place] [address] Care Team Providers Care Co Founder And Director Name Role Phone Nataly King MD Unavailable [phone] Cierra Elaine NP Unavailable [phone] Cierra Elaine NP Primary Care Provider [phone] Allergies Active Allergy Reactions Criticality Noted Date Comments Codeine Nausea And Vomiting,Vomiting,Unknow n Low 01/22/2015 Other reaction(s): Unknown, Unknown Medications zinc citrate-phytas e 25-500 mg capsule 1 Active omeprazole (PriLOSEC) 20 mg capsule Take by mouth daily Active cholecalcifero l (VITAMIN D-3) 1,000 unit capsule 2 Active ascorbic acid (VITAMIN C) 1,000 mg tablet Take 1 tablet (1,000 mg total) by mouth daily Active cyanocobalamin (Vitamin B-12) 1,000 mcg tabletIndicati ons:Prevention of Vitamin B12 Deficiency Take 1 tablet (1,000 mcg total) by mouth daily Active montelukast (SINGULAIR) 10 mg tablet Take 1 tablet (10 mg total) by mouth nightly Active vitamin K2 40 mcg tablet Take by mouth Active tamoxifen (NOLVADEX) 20 mg tabletIndicati ons:prevention of breast cancer in high risk women Take 1 tablet (20 mg total) by mouth daily 90 tablet 3 5 Active rosuvastatin (CRESTOR) 20 mg tablet Take 1 tablet (20 mg total) by mouth daily 11/01/19 25 Discontinued aspirin 81 mg enteric coated tablet Take 1 tablet (81 mg total) by mouth 11/01/19 25 Discontinued diphenhydrAMIN E (BENADRYL) 50 mg capsule Take 1 capsule (50 mg total) by mouth every 6 (six) hours as needed for itching 11/01/19 25 Discontinued tamoxifen (NOLVADEX) 10 mg tabletIndicati ons:Prophylact ic use of tamoxifen TAKE 2 TABLETS BY MOUTH EVERY DAY 180 tablet 3 4 11/01/19 25 Discontinued Active Problems Problem Noted Date Diagnosed Date At increased risk of breast cancer 10/31/2024 Inconclusive mammogram due to dense breasts 08/2023 Prophylactic use of tamoxifen 09/30/2023 Encounter for monitoring tamoxifen therapy 09/29 Family history of breast cancer 12/31/2022 Extremely dense tissue of both breasts on mammog osvaldo 12/31/2022 Encounter for screening mammogram for breast can cer 12/31/2022 Breast cancer screening, high risk patient 12/31 Encounters Date Type Department Care Team Description 10/31/2024 10:40 AM CDT Office Visit [facility] Oncology [address] [place] [address] [address] [place] [address] Nataly King MD Breast cancer screening by mammogram (Primary Dx); Family history of breast cancer; Extremely dense tissue of both breasts on mammography; Breast cancer screening, high risk patient; Inconclusive mammogram due to dense breasts; Encounter for monitoring tamoxifen therapy; Prophylactic use of tamoxifen; At increased risk of breast cancer 10/31/2024 9:10 AM CDT - 10/31/2024 11:59 PM CDT Hospital Encounter [facility] Medical Office [address]ld[address] [facility] [address] [place] [address] Breast cancer screening by mammogram; Encounter for screening mammogram for breast cancer Discharge Disposition: Discharge to home or self care 09/30/2024 Telephone 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 Gender Identity Not on file Sexual Orientation Not on file Obstetrics History Para Term AB IAB SAB Ectopic Multiple Livin g Live Births 2 Date Outcome GA Total Labor Labor/2nd/3rd Weight Sex Type Anes PTL Jeannie A1 A5 Name Clin Last Filed Vital Signs Vital Sign Reading Time Taken Comments Blood Pressure 144/85 10/31/2024 10:22 AM CDT Pulse 63 10/31/2024 10:22 AM CDT Temperature 36.3 C (97.4 F) 10/31/2024 10:22 AM CDT Respiratory Rate 16 10/31/2024 10:22 AM CDT Oxygen Saturation 100% 10/31/2024 10:22 AM CDT Inhaled Oxygen Concentration - - Weight 52.9 kg (116 lb 9.6 oz) 10/31/2024 10:22 AM CDT Height 161.3 cm (5' 3.5) 10/31/2024 9:48 AM CDT Body Mass Index 20.33 10/31/2024 9:48 AM CDT Plan of Treatment Health Maintenance Due Date Last Done Comments Cervical Cancer Screening 1965 Colon Cancer Screening-Colonoscopy 1965 Depression Screening 1965 Hepatitis C Screening 1965 Hepatitis B Screening 02/06/1982 Regular Well Visit/Exam 18-64 02/06/1982 Pneumococcal vaccine <65 (1 of 2 - PCV) 02/06/1983 Covid-19 Vaccine (3 - Pfizer risk series) 01/07/2021 12/10/2020, 11/19/2020 Influenza Vaccine (#1) 2024 , 11/18/2019, 11/18/2019, Additional history exists Breast Cancer Screening-Mammogram 10/31/2025 10/31/2024, 09/30/2023, 06/28/2021, Additional history exists DTaP/Tdap/Td Vaccine (2 - Td or Tdap) 11/19/2028 11/19/2018 Zoster Vaccine Completed 02/29/2020, 11/18/2019 Procedures Procedure Name Priority Date/Time Associated Diagnosis Comments SCREENING MAMMOGRAM BILATERAL W TE Schedule Routine, Read Routine (OP Routine) 10/31/2024 9:48 AM CDT Breast cancer screening by mammogram Encounter for screening mammogram for breast cancer from Last 3 Months Results * Screening Mammogram Bilateral W Te [...] PROCEDURES Final Result from Last 3 Months Insurance [facility] CHO[facility] PLUS [facility] PL[facility] Care Teams Co Founder And Director Relationship Specialty Start Date End Date Cierra Elaine NP [facility] [place] [address] PCP - General Nurse Practitioner 04/08/24 Nataly King MD [address] [facility] [address] DIV MEDICAL ONCOLOGY, [facility] [address] [place] [address] Surgeon Breast Surgery 11/28/22 Cierra Elaine NP [address] [place] [id number] Nurse Practitioner Nurse Practitioner 12/31/22
--- OUTSIDE RECORDS SUMMARY | 2024-11-02 09:05 | XMS_ITS | Clinical Summary ---
Author Organization [facility] Address [address] [address] Phone Care Team Providers Care Supervisor Drying Name Role Phone Provider, None Primary Care [...] Comments Blood Pressure 118/72 01/22/2015 8:34 AM MIGRATION SPECIALIST Pulse 102 01/22/2015 8:34 AM MIGRATION SPECIALIST Temperature 36.3 C (97.3 F) 01/22/2015 8:34 AM MIGRATION SPECIALIST Respiratory Rate 18 01/22/2015 8:34 AM MIGRATION SPECIALIST Oxygen Saturation 97% 01/22/2015 8:34 AM MIGRATION SPECIALIST Inhaled Oxygen Concentration - - Weight 52.8 kg (116 lb 4.8 oz) 01/22/2015 8:34 A M MIGRATION SPECIALIST Height 162.6 cm (5' 4) 01/22/2015 8:34 AM MIGRATION SPECIALIST Body Mass Index 19.96 01/22/2015 8:34 AM MIGRATION SPECIALIST Plan of Treatment Health Maintenance Due Date Last Done Comments Hepatitis C Virus (HCV) Screening 1965 TdaP Immunization 1965 HPV/Cotest 02/06/1994 Cologuard 02/06/2009 Immunochemical Fecal Occult Blood 02/06/2009 Cervical Cancer Screening (CCS) 04/23/2013 Pap Smear 04/23/2013 04/23/2010 Pneumococcal Immunization (5 0+ years) (1 of 1 - PCV) 02/06/2014 Zoster Immunization (1 of 2) 02/06/2014 SARS-COV-2 Immunization (1 - season) 2023 Colonoscopy 08/28/2024 08/28/2014 Colorectal Cancer Screening 08/28/2024 Influenza Immunization (#1) 2024 02/23/2013 Respiratory Syncytial Virus (RSV) Immunization (Adult) (1 - 1-dose 75+ series) 02/06/2039 Mammogram Discontinued 10/20/2016 Hepatitis B Immunization Aged Out No longer eligible based on patient's age to complete this topic Human Papillomavirus (HPV) Immunization Aged Out No longer eligible b ased on patient's age to complete this topic [...] Region Laterality Modality breast Bilateral Mammography 10/20/2016 8:1 0 AM CDT Narrative 10/24/2016 7:35 AM CDT - [facility] SCREENING BILATERAL DIGITAL W CAD BILATERAL DIGITAL [...] to exams dated: 09/06/2015, 08/29/2014, and 08/23/2013 [facility]. BREAST TISSUE: The tissue of both breasts [...] be contacted. Lizeth Viramontes M.D. pw/:10/23/2016 15:14:47 Director Foundation: Susan CHRISTIE)(Yessica), [facility] letter sent: Additional Imaging Reading location: [facility] BI-RADS: 0 Additional Imaging Evaluation Needed Procedure Note Lizeth Viramontes MD - 10/24/2016 - [facility] SCREENING BILATERAL DIGITAL W CAD BILATERAL DIGITAL [...] to exams dated: 09/06/2015, 08/29/2014, and 08/23/2013 [facility]. BREAST TISSUE: The tissue of both breasts [...] be contacted. Lizeth Viramontes M.D. pw/:10/23/2016 15:14:47 Director Foundation: Susan GRIFFITH(R)(M), [facility] letter sent: Additional Imaging Reading location: [facility] BI-RADS: 0 Additional Imaging Evaluation Needed Armin Schwartz MD IMG MAMMO ORDERABLES F inal Result * [facility] COLONOSCOPY (08/28/2014) Danine Garg Jr., MD PROCEDURE/MINOR ROMULO GICAL ORDERABLES Final Result * [facility] PAP SMEAR (04/23/2010) Dannie Garg Jr., MD CHG - LABORATORY Fi nal Result from Last 3 Months or Most Recently Relevant to Health Maintenance Care Teams Supervisor Drying Relationship Specialty Start Date End Date Provider, None [place] PCP - General 05/19/16
--- OUTSIDE RECORDS SUMMARY | 2024-11-02 09:05 | XMS_ITS | Encounter Summary ---
Author Organization [facility] Address [address] [place] [address] Phone Care Team Providers Care Solution Engineer Name Role Phone Nataly King MD Unavailable [phone] Unknown, Notinfile Primary Care Provider Unavail able Jp Myers MD Primary Care Provider [phone] Cierra Elaine NP Unavailable [phone] Cierra Elaine NP Primary Care Provider [phone] Encounter Details Date Type Department Care Team (Latest Contact Info) Description 09/27/2022 Orders Only [facility] Scanning, Provider Social History Tobacco Use Types Packs/Day Years Used Date Smoking Tobacco: Never Assessed Comments Unknown Sex and Gender Information Value Date Recorded Sex Assigned at Not on file 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 Gender Identity Not on file Sexual Orientation [...] on filedocumented in this encounter Care Teams Solution Engineer Relationship Specialty Start Date End Date Unknown, Notinfile PCP - General 12/29/22 12/30/22 Jp Myers MD PCP - General Family Practice 12/31/22 04/07/24 Cierra Elaine NP [facility] [place] [address] PCP - General Nurse Practitioner 04/08/24 Nataly King MD [address] [facility] IM MEDICAL ONCOLOGY, [facility] [place] [address] Surgeon Breast Surgery 11/28/22 Cierra Elaine NP [address] [place] [id number] Nurse Practitioner Nurse Practitioner 12/31/22 documented as of this encounter
--- OUTSIDE RECORDS SUMMARY | 2024-11-02 09:05 | XMS_ITS | Clinical Summary ---
Author Organization [facility] Address [address] [place] [address] Care Team Providers Care Senior Technical Support Analyst Name Role Phone Unavailable Primary Care Provider [...] Last Done Comments Velscope Screening 11/24/2020 05/25/2020 Orthodontics - Retainer Check 12/25/2021 11/13/2021, 11/13/2021, 11/13/2021 Dental Oral Exam 03/24/2022 09/20/2021, 09/2020, 05/25/2020, Additional history exists Dental Prophylaxis 03/24/2022 09/20/2021, 1 04/02/2020, 05/25/2020, Additional history exists Dental X-Ray: Bitewings 03/24/2022 09/20/2021 Dental X-Ray: Panoramic 05/15/2022 11/14/2021, 06/28, 05/27/2016 Dental X-Ray: Full Mouth 09/22/2024 09/21/2021, 04/0 05/2016 Procedures Procedure Name Priority Date/Time Associated Diagnosis Comments CONTRACT ONLY - ORTHODONTIC RETENTION Routine 11/13/2021 9:30 AM CDT PERIODIC ORAL EVALUATION - ESTABLISHED [...]
--- OUTSIDE RECORDS SUMMARY | 2024-11-02 09:05 | XMS_ITS | Encounter Summary ---
Author Organization [facility] Address [address] [place] [address] Care Team Providers Care Museum Docent Name Role Phone Unavailable Primary Care Provider Unavailabl e Prior Encounters Date Type Department Care Team Description 11/13/2021 9:30 AM CDT Office Visit [facility] [address] [facility] [place] [address] Fartun Reynoso DDS [place] 09/20/2021 10:30 AM CDT Office Visit [facility] [address] [place] [address] Elvira Zuniga, CHRISTIE 09/20/2021 10:00 AM CDT Office Visit [facility] [address] [place] [phone] 09/19/2021 3:00 PM CDT Office Visit [facility] [id number] [place], [place] [address] [address] Fartun Reynoso DDS [place] 06/12/2021 10:30 AM CDT Office Visit [facility] [address] [facility] [place] [address] Fartun Reynoso DDS [place] 03/20/2021 9:30 AM CORPORATE FITNESS PROGRAM COORDINATOR [facility] Encounter [facility] [address] [place] [address] Provider, Historical 01/30/2021 8:30 AM CORPORATE FITNESS PROGRAM COORDINATOR [facility] Encounter [facility] [address] [facility], [place] [phone] Provider, Historical 03/14/2019 Converted CPS Chart Documents [facility] [address] [facility], [place] [phone] <No scans attached> 03/14/2019 Converted 13x Documents [facility] [address] [facility], [place] [phone] <No scans attached> 03/14/2019 Converted CPS Chart Documents [facility] [address] [facility], [place] [address] <No scans attached> 03/14/2019 Converted 13x Documents [facility] [address] [facility], [place] [phone] <No scans attached> Last Filed Vital Signs [...] 2 CEMENT CROWN Routine 04/23/2021 2:00 AM CORPORATE FITNESS PROGRAM COORDINATOR SINGLE X-RAY Routine 04/23/2021 2:00 AM CORPORATE FITNESS PROGRAM COORDINATOR INTRAORAL PHOTO Routine 04/23/2021 2:00 AM CORPORATE FITNESS PROGRAM COORDINATOR PERIODIC ORTHODONTIC TREATMENT VISIT Routine 03/20/2021 2:00 AM CORPORATE FITNESS PROGRAM COORDINATOR 2 CORE BUILDUP, INCLUDING ANY PINS WHEN REQUIRED Routine 03/20/2021 2:00 AM CORPORATE FITNESS PROGRAM COORDINATOR 2 ZIRCONIA LAB MADE CROWN POST Routine 03/20/2021 2:00 AM CORPORATE FITNESS PROGRAM COORDINATOR PERIODIC ORTHODONTIC TREATMENT VISIT Routine 01/30/2021 2:00 AM CORPORATE FITNESS PROGRAM COORDINATOR PERIODIC ORAL EVALUATION - ESTABLISHED PATIENT Routine 01/30/2021 2:00 AM CORPORATE FITNESS PROGRAM COORDINATOR ORAL HYGIENE INSTRUCTIONS Routine 2020 2:00 AM CORPORATE FITNESS PROGRAM COORDINATOR PROPHYLAXIS - ADULT Routine 01/30/2021 2 :00 AM CORPORATE FITNESS PROGRAM COORDINATOR PERIODIC ORTHODONTIC TREATMENT VISIT Routine 11/17/2020 2:00 [...] - 18M Routine 06/28/2020 2:00 AM CDT ORTHO CONSULT Routine 05/29/2020 2:00 AM CDT PERIODIC ORAL EVALUATION - [...] - ESTABLISHED PATIENT Routine 03/02/2019 2:00 AM CORPORATE FITNESS PROGRAM COORDINATOR ORAL HYGIENE INSTRUCTIONS Routine 2019 2:00 AM CORPORATE FITNESS PROGRAM COORDINATOR PROPHYLAXIS - ADULT Routine 03/02/2019 2 :00 AM CORPORATE FITNESS PROGRAM COORDINATOR BITEWINGS - FOUR RADIOGRAPHIC IMAGES Routine 03/02/2019 2:00 AM CORPORATE FITNESS PROGRAM COORDINATOR ADDITIONAL X-RAY Routine 03/02/2019 2:00 AM CORPORATE FITNESS PROGRAM COORDINATOR ADDITIONAL X-RAY Routine 03/02/2019 2:00 AM CORPORATE FITNESS PROGRAM COORDINATOR ADDITIONAL X-RAY Routine 03/02/2019 2:00 AM CORPORATE FITNESS PROGRAM COORDINATOR ADDITIONAL X-RAY Routine 03/02/2019 2:00 AM CORPORATE FITNESS PROGRAM COORDINATOR ADDITIONAL X-RAY Routine 03/02/2019 2:00 AM CORPORATE FITNESS PROGRAM COORDINATOR SINGLE X-RAY Routine 03/02/2019 2:00 AM CORPORATE FITNESS PROGRAM COORDINATOR FM BLEACH IN-OFFICE Routine 09/17/2018 2 :00 AM CDT 19 B COMPOSITE FILLING Routine 9 2:00 AM CDT PERIODIC ORAL EVALUATION - ESTABLISHED PATIENT Routine 08/19/2018 2:00 AM CDT ORAL HYGIENE INSTRUCTIONS Routine 2018 2:00 AM CDT PROPHYLAXIS - ADULT Routine 08/18/2018 2 :00 AM CDT PERIODIC ORAL EVALUATION - ESTABLISHED PATIENT Routine 01/25/2018 2:00 AM CORPORATE FITNESS PROGRAM COORDINATOR ORAL HYGIENE INSTRUCTIONS Routine 2017 2:00 AM CORPORATE FITNESS PROGRAM COORDINATOR TOPICAL APPLICATION OF FLUORIDE VARNISH Routine 01/25/2018 2:00 AM CORPORATE FITNESS PROGRAM COORDINATOR PROPHYLAXIS - ADULT Routine 01/25/2018 2 :00 AM CORPORATE FITNESS PROGRAM COORDINATOR BITEWINGS - FOUR RADIOGRAPHIC IMAGES Routine 01/25/2018 2:00 AM CORPORATE FITNESS PROGRAM COORDINATOR ADDITIONAL X-RAY Routine 01/25/2018 2:00 AM CORPORATE FITNESS PROGRAM COORDINATOR ADDITIONAL X-RAY Routine 01/25/2018 2:00 AM CORPORATE FITNESS PROGRAM COORDINATOR ADDITIONAL X-RAY Routine 01/25/2018 2:00 AM CORPORATE FITNESS PROGRAM COORDINATOR ADDITIONAL X-RAY Routine 01/25/2018 2:00 AM CORPORATE FITNESS PROGRAM COORDINATOR ADDITIONAL X-RAY Routine 01/25/2018 2:00 AM CORPORATE FITNESS PROGRAM COORDINATOR SINGLE X-RAY Routine 01/25/2018 2:00 AM CORPORATE FITNESS PROGRAM COORDINATOR PERIODIC ORAL EVALUATION - ESTABLISHED PATIENT Routine 07/15/2017 2:00 AM CDT ORAL HYGIENE INSTRUCTIONS Routine 2017 2:00 AM CDT TOPICAL APPLICATION OF FLUORIDE VARNISH Routine 07/15/2017 2:00 AM CDT PROPHYLAXIS - ADULT Routine 07/15/2017 2 :00 AM CDT PERIODIC ORAL EVALUATION - ESTABLISHED PATIENT Routine 12/31/2016 2:00 AM CORPORATE FITNESS PROGRAM COORDINATOR ORAL HYGIENE INSTRUCTIONS Routine 2016 2:00 AM CORPORATE FITNESS PROGRAM COORDINATOR TOPICAL APPLICATION OF FLUORIDE VARNISH Routine 12/31/2016 2:00 AM CORPORATE FITNESS PROGRAM COORDINATOR PROPHYLAXIS - ADULT Routine 12/31/2016 2 :00 AM CORPORATE FITNESS PROGRAM COORDINATOR 30 B AMALGAM 1 SURFACE Routine 7 [...] AM CDT 15 O COMPOSITE FILLING Routine 2:00 AM CDT Visit Diagnoses Not on file Administered Medications Insurance Member Subscriber Plan / Payer (Pending sale to [facility] 08/23/1994-Present) Name:Jenna Jenkins Relation to Subscriber:Self Name:Jenna Jenkins Payer ID:[id number] Type:Not on file [address]
[2024-11-02 19:16] LABS: Alanine Aminotransferase 25 U/L (6-35); Albumin Level 4.6 g/dL (3.5-5.1); Alkaline Phosphatase 39 U/L (38-126); Anion Gap 8 mmol/L (4-12); Aspartate Amino Transferase 57 U/L (14-36); Bilirubin,Total 0.4 mg/dL (0.2-1.3); Blood Urea Nitrogen 30 mg/dL (7-17); Calcium 9.1 mg/dL (8.4-10.2); Carbon Dioxide 28 mmol/L (22-30); Chloride 103 mmol/L (98-107); Cholesterol 224 mg/dL (0-200); Estimated Glomerular Filt Rate > 60; Glucose 81 mg/dL (65-110); HDL Direct 79 mg/dL; Hematocrit 41.2 % (37.0-47.0); Hemoglobin 13.1 g/dL (12.0-15.0); Mean Corpuscular HGB Conc 31.8 g/dl (32-36); Mean Corpuscular Hemoglobin 31.1 pg (26-34); Mean Corpuscular Volume 97.9 fl (80-100); Platelet Count Result 207 k/mm3 (150-375); Potassium 4.4 mmol/L (3.4-5.0); Red Blood Count 4.21 M/mm3 (4.2-5.4); Sodium 139 mmol/L (137-145); Total Protein 8.3 g/dL (6.3-8.2); Triglycerides 114 mg/dL (<150); White Blood Count 4.4 K/mm3 (4.5-10.0)
[2024-11-02 19:32] LABS: Hemoglobin A1C 5.5 % (<5.7)
[2024-11-02 19:53] LABS: Thyroid Stimulating Hormone 1.460 uIU/mL (0.465-4.680)
[2024-11-02 20:13] LABS: Vitamin B12 895.0 pg/mL (239-931)
== END 2024-11-02 08:39 | disposition home or self-care (01) ==
LOC: ANHBWCLAB 08:39
PROVIDERS: PCP Nurse Practitioner Adult Health; Visit Provider Nurse Practitioner Adult Health
DX: Z00.00 Encounter for general adult medical examination without abnormal findings (principal); E55.9 Vitamin D deficiency, unspecified
CPT/HCPCS: 36415; 80053; 80061; 82306; 82607; 83036; 84443; 85027